=== PATIENT | male | born 1940 | race Caucasian/White ===

== ENCOUNTER 2020-06-07 21:38 | Inpatient (IN) | payer MEDICARE, OTHER, SELFPAY ==
--- NOTE | ~2020-06-07 | XR_ITS ---
EXAMINATION: XR chest 2V DATE: 06/09/2020 09:57 INDICATION: Leukocytosis TECHNIQUE: AP and lateral views of the chest are obtained. COMPARISON: None available FINDINGS: Patchy bilateral airspace opacities are present. There are small pleural effusions. No pneu mothorax is identified. The heart size is upper limits of normal for technique. There is calcified at herosclerosis. A dual-lead cardiac pacemaker of the left chest wall ends with leads in expected locat ions. Cranial migration of the humeral head with respect to the glenoid is consistent with chronic ro tator cuff tears. There is moderate thoracic spondylosis. IMPRESSION: 1. Patchy bilateral airspace opacities, consistent with atelectasis versus pneumonia. Reviewed, dictated and finalized at location [facility] IMPRESSION: 1. Patchy bilateral airspace opacities, consistent with atelectasis versus pneu monia.
[2020-06-07 21:39] VITALS: BP 95/36; PULSE 96; RESP 18; TEMP 36.3; O2SAT 98
[2020-06-07 22:16] LABS: Basophils Absolute Auto 0.1 K/mm3 (0.0-0.1); Basophils Percent Auto 0.7 % (0.2-1.2); Eosinophils Absolute Auto 0.7 K/mm3 (0-0.3); Eosinophils Percent Auto 9.1 % (0-4.4); Hematocrit 22.8 % (42.0-52.0); Hemoglobin 7.5 g/dL (14.0-18.0); Immature Granulocyte Absolute 0.03 K/mm3 (0.00-0.031); Immature Granulocyte Percent A 0.4 % (0-0.5); Lymphocytes Absolute Auto 1.31 K/mm3 (0.9-3.2); Lymphocytes Percent Auto 17.1 % (18.3-44.2); Mean Corpuscular HGB Conc 32.9 g/dl (32-36); Mean Corpuscular Hemoglobin 36.8 pg (26-34); Mean Corpuscular Volume 111.8 fl (80-100); Mean Platelet Volume 8.9 fl (7.4-10.4); Neutrophils Absolute Auto 4.6 K/mm3 (1.3-6.7); Neutrophils Percent Auto 59.7 % (45.5-73.1); Platelet Count Result 238 k/mm3 (150-375); Red Blood Count 2.04 M/mm3 (4.6-6.20); White Blood Count 7.7 K/mm3 (4.5-10.0)
[2020-06-07 22:26] LABS: Prothrombin Time 39.4 Seconds (11.1-14.7)
[2020-06-07 22:27] LABS: Partial Thromboplastin Time 45.6 SECONDS (22.3-36.8)
[2020-06-07 22:29] LABS: Alanine Aminotransferase 15 U/L (4-50); Albumin Level 3.5 g/dL (3.5-5.1); Alkaline Phosphatase 174 U/L (38-126); Anion Gap 9 mmol/L (8-16); Aspartate Amino Transferase 27 U/L (17-59); Bilirubin,Total 0.3 mg/dL (0.2-1.3); Blood Urea Nitrogen 47 mg/dL (9-20); Calcium 8.7 mg/dL (8.4-10.2); Carbon Dioxide 21 mmol/L (22-30); Chloride 110 mmol/L (98-107); Estimated CRCL calculation 22 ml/min; Estimated Glomerular Filt Rate 29; Glucose 106 mg/dL (75-110); Potassium 3.8 mmol/L (3.4-5.0); Sodium 140 mmol/L (137-145)
--- NOTE | 2020-06-07 23:59 | ED.GENADULT ---
HPI - General Adult General Chief complaint: Epistaxis Stated complaint: nose bleed, on blood thinners Time Seen by Provider: 06/07/20 21:45 History of Present Illness HPI narrative: Patient is a 79-year-old gentleman who presents the emergency department with chief complaint of epistaxis. Patient reports he is on Coumadin due to prior history of stroke and also cardiac disease. The patient states that tonight he started bleeding and attempted to control it with direct pressure. The patient states he continued to bleed he packed several pieces of Kleenex in his nose but continued to bleed and the patient came to the emergency department. The patient noted after he packed his left nostril he started having bleeding out of the right nostril. Related Data Allergies Allergy/AdvReac Type Severity Reaction Status Date / Time No Known Allergies Allergy Verified 06/07/20 21:42 Review of Systems Review of Systems: Narrative: A 10 system review of systems was completed on the patient and is negative except for what is stated in the HPI. Nursing and ancillary documentation was reviewed. PMFSH Comments Patient has history of cardiac bypass and pacemaker Social history the patient denies illicit drug use Exam Narrative: Exam Narrative: GENERAL: Well-appearing, well-nourished, and in no acute distress. HEAD: Normocephalic, atraumatic. EYES: PERRLA and EOMI. ENT: There is significant epistaxis and large clot in the left nostril. A large clot was expressed by having the patient blow his nose. Mucous membranes moist. NECK: Supple. CHEST: Clear to auscultation. No respiratory distress. HEART: Regular rate and rhythm. No murmur heard. Normal peripheral pulses. ABDOMEN: Soft, nontender, nondistended, normal active bowel sounds. EXTREMITIES: Normal range of motion. No edema. SKIN: Warm, dry, no rash. NEURO: No focal deficits. Alert and oriented x3. PSYCH: Normal mood and affect. Course Course Emergency Course: The patient is on Coumadin and a hemoglobin was obtained which showed a level of 7.5 patient denies history of significant anemia but does report that he has history of cardiac disease and also has a pacemaker. The patient's INR was 4.0 the case was discussed with Dr. Marie with ear nose and throat. He has not currently on active call but is available tonight if there is continual bleeding. He recommended continuing the rapid Rhino in place and holding the patient's Coumadin overnight. Vital Signs Vital signs: Vital Signs Temperature 36.3 C L 06/07/20 21:39 Pulse Rate 96 06/07/20 21:39 Respiratory Rate 18 06/07/20 21:39 Blood Pressure 95/36 L 06/07/20 21:39 Pulse Oximetry 98 06/07/20 21:39 Temperature 36.3 C L 06/07/20 21:39 Pulse Rate 96 06/07/20 21:39 Respiratory Rate 18 06/07/20 21:39 Blood Pressure 95/36 L 06/07/20 21:39 Pulse Oximetry 98 06/07/20 21:39 Procedures Epistaxis Control left: Time Out Performed: Yes Nose Prepped With: phenylephrine Direct Inspection: yes Clots Removed by: blowing nose Device Inserted: hemostatic balloon Device Size: 75 Patient Tolerated Procedure: well Medical Decision Making Vital Signs Vital Signs: Vital Signs Temperature 36.3 C L 06/07/20 21:39 Pulse Rate 96 06/07/20 21:39 Respiratory Rate 18 06/07/20 21:39 Blood Pressure 95/36 L 06/07/20 21:39 Pulse Oximetry 98 06/07/20 21:39 Temperature 36.3 C L 06/07/20 21:39 Pulse Rate 96 06/07/20 21:39 Respiratory Rate 18 06/07/20 21:39 Blood Pressure 95/36 L 06/07/20 21:39 Pulse Oximetry 98 06/07/20 21:39 Lab Data Result diagrams: 06/07/20 22:10 06/07/20 22:10 Labs: Lab Results 06/07/20 06/07/20 06/07/20 Range/Units 22:10 22:10 22:10 WBC 7.7 (4.5-10.0) K/mm3 RBC 2.04 L (4.6-6.20) M/mm3 Hgb 7.5 L (14.0-18.0) g/dL Hct 22.8 L (42.0-52.0) % MCV 111.8 H (80-
[2020-06-08] VITALS (11 sets, daily range): BP systolic 108–138; BP diastolic 48–58; PULSE 88–115; RESP 16–18; TEMP 36.4–38.1; O2SAT 96–100; BMI 24.3
--- NOTE | 2020-06-08 00:34 | PM.IMHP ---
H&P: HPI History of Present Illness Date/Time: 06/08/20 00:34 Chief Complaint: Nose bleed Narrative: This is a pleasant 79-year-old male with known history of coronary artery disease status post 3 stents and chronically anticoagulated on warfarin secondary to previous CVA. The patient presented to the [facility] with a complaint of epistaxis. Around 8:00 p.m. this evening he was blowing his nose when suddenly he started to have a significant nose bleed out of his left nostril. The patient ended up coming to the hospital as his bleeding would not stop. He reports that he did swallow a large amount of blood as well. He denies any significant trauma to his face or head. the patient is also known to be on aspirin therapy. He also denies any recent passing out, lightheadedness, shortness of breath, chest pain, nausea, vomiting, hematuria, dysuria, diarrhea, black tarry stools, or bright red rectal bleeding. Routine labs were obtained in the emergency room which demonstrated acute renal failure, elevated INR 4.0, and normocytic anemia. ER provider has consulted ENT and has placed a rhino rocket which has stopped the patient's epistaxis. We been asked to admit the patient to the hospital to keep a close eye on the patient's H&H and ENT has been consulted to manage any acute bleeding complications. No other complaints at this time. Review of Systems Review of Systems: All systems reviewed & are unremarkable except as noted in HPI and below PMFSH Past Medical History Medical History Cerebral arteriosclerosis with history of previous stroke Hyperlipidemia Hypertension Surgical History Surgical History History of coronary artery stent placement Family History Family History Mother Breast cancer Social History Social History Years smoked: 60 Smoking status: Current every day smoker Tobacco type: cigarettes Second hand tobacco smoke exposure: Yes Alcohol intake: current Drinks per week: 6 Substance use: never Substance use type: does not use Gender identity (if verbalized by the patient): Male Spiritual care concerns: No Comments family history is reviewed and noncontributory. Meds Home Medications and Allergies Home Medications Medication Instructions Recorded Confirmed Type aspirin [Adult Aspirin] 81 mg PO DAILY 06/08/20 06/08/20 History carvedilol [Coreg] 6.25 mg PO BID 06/08/20 06/08/20 History furosemide 40 mg PO DAILY 06/08/20 06/08/20 History lisinopril 10 mg PO HS 06/08/20 06/08/20 History simvastatin 40 mg PO HS 06/08/20 06/08/20 History warfarin 2.5 mg PO DIRECTED 06/08/20 06/08/20 History warfarin 5 mg PO DIRECTED 06/08/20 06/08/20 History Allergies Allergy/AdvReac Type Severity Reaction Status Date / Time No Known Allergies Allergy Verified 06/08/20 01:20 Vital Signs Vital Signs - 24 hr 06/07/20 21:39 Temperature 36.3 C L Pulse Rate 96 Respiratory Rate 18 Blood Pressure 95/36 L Pulse Oximetry 98 Exam Const: General: cooperative, no acute distress, alert and awake Nutritional Appearance: well nourished Orientation/consciousness: patient oriented x3 HENMT: Head: normal to inspection General nose exam: Other nasal findings present ( Left nostril with rhino rocket in place++ ) Face and sinus: normal facial exam Mouth: Yes Normal oral and palatal mucosa present and Yes oropharynx normal Eyes: Pupils: Equal, round and reactive pupils present EOM: EOMs intact bilaterally Neck: Neck: supple and no JVD Thyroid: thyroid normal Lymphatic: lymphadenopathy not noted Resp: Effort & Inspection: normal respiratory effort Auscultation: clear to auscultation bilaterally Cardio: Rate: regular rate Rhythm: regular rhythm Heart sounds: no mur
--- NOTE | 2020-06-08 01:00 | ADMGEN ---
This patient, Gerry Barba, was admitted to Medical Room 251-. Patient/family oriented to hospital policies and general routines including ID bracelet, bed and alarms, visiting hours, pain management, procedures, bathroom and other care routines, personal items, smoking policy, room service/diet, and visiting hours. Information on how to activate the Rapid Response Team has been discussed. Patient/Family are encouraged to report perceived risks to care and to ask questions if they do not understand what they are told or what they should do.
[2020-06-08] MEDS: SODIUM CHLORIDE 0.9% IV 1,000 ML 100 ML IV CONT ×2 (01:53→17:00)
[2020-06-08 02:20] LABS: Basophils Percent Auto 0.5 % (0.2-1.2); Eosinophils Absolute Auto 0.2 K/mm3 (0-0.3); Eosinophils Percent Auto 2.9 % (0-4.4); Hematocrit 22.1 % (42.0-52.0); Hemoglobin 7.1 g/dL (14.0-18.0); Immature Granulocyte Absolute 0.04 K/mm3 (0.00-0.031); Immature Granulocyte Percent A 0.5 % (0-0.5); Lymphocytes Absolute Auto 1.06 K/mm3 (0.9-3.2); Lymphocytes Percent Auto 14.1 % (18.3-44.2); Mean Corpuscular HGB Conc 32.1 g/dl (32-36); Mean Corpuscular Hemoglobin 36.6 pg (26-34); Mean Corpuscular Volume 113.9 fl (80-100); Mean Platelet Volume 9.3 fl (7.4-10.4); Monocytes Absolute Auto 0.8 K/mm3 (0.1-0.6); Monocytes Percent Auto 10.7 % (2.6-8.5); Neutrophils Absolute Auto 5.4 K/mm3 (1.3-6.7); Neutrophils Percent Auto 71.3 % (45.5-73.1); Platelet Count Result 250 k/mm3 (150-375); Red Blood Count 1.94 M/mm3 (4.6-6.20); White Blood Count 7.5 K/mm3 (4.5-10.0)
[2020-06-08 02:32] LABS: Anion Gap 7 mmol/L (8-16); Blood Urea Nitrogen 52 mg/dL (9-20); Calcium 8.2 mg/dL (8.4-10.2); Carbon Dioxide 21 mmol/L (22-30); Chloride 109 mmol/L (98-107); Estimated CRCL calculation 22 ml/min; Estimated Glomerular Filt Rate 29; Glucose 115 mg/dL (75-110); Potassium 4.2 mmol/L (3.4-5.0); Sodium 137 mmol/L (137-145)
[2020-06-08 02:35] LABS: Partial Thromboplastin Time 45.5 SECONDS (22.3-36.8); Prothrombin Time 39.4 Seconds (11.1-14.7)
[2020-06-08 03:44] LABS: Add Urine Microscopic? YES; Appearance Urine Clear (Clear); Bacteria Urine Trace /hpf; Bilirubin Urine Negative (Negative); Blood Urine 2+ (Negative); Color Urine Yellow (Yellow); Glucose Urine UA Negative (Negative); Ketones Urine Negative (Negative); Leukocyte Esterase Ur Trace LEU/UL (NEGATIVE); Mucus Urine Rare /lpf; Nitrate Urine Negative (Negative); Protein Urine 1+ mg/dL (Negative); RBC Urine 0-2 /hpf (0-2); Specific Grav Ur 1.014 (1.001-1.035); Squamous Epithelial Cell Urine Rare /hpf (Few); Urobilinogen Urine Negative mg/dL (<2.0)
[2020-06-08 07:55] LABS: Hematocrit 21.4 % (42.0-52.0)
[2020-06-08] MEDS: carvediloL 6.25 MG TABLET PO ×2 (07:58→17:04)
[2020-06-08 08:02] LABS: Hemoglobin 6.8 g/dL (14.0-18.0)
[2020-06-08 08:16] LABS: Anion Gap 9 mmol/L (8-16); Blood Urea Nitrogen 51 mg/dL (9-20); Calcium 8.2 mg/dL (8.4-10.2); Carbon Dioxide 19 mmol/L (22-30); Chloride 111 mmol/L (98-107); Estimated CRCL calculation 24 ml/min; Estimated Glomerular Filt Rate 30; Glucose 94 mg/dL (75-110); Magnesium 2.2 mg/dL (1.6-2.3); Potassium 4.1 mmol/L (3.4-5.0); Sodium 139 mmol/L (137-145)
[2020-06-08] MEDS: SODIUM CHLORIDE 0.9% IV 250 ML 30 ML IV CONT (10:21)
[2020-06-08 11:35] LABS: INR 3.9; Prothrombin Time 38.3 Seconds (11.1-14.7)
--- NOTE | 2020-06-08 13:31 | P.PNIM_ITS ---
Progress Note: A&P Assessment and Plan (1) Epistaxis: Code(s): R04.0 - Epistaxis Status: Acute Assessment and Plan: * Rhino Rocket intact and should be continued for at least 24 hrs from placement (placed in the ED after 10pm 06/07/20). Can be continued up to 72 hrs. * Hold warfarin and aspirin. INR 3.9 this morning. No ENT coverage this weekend. Will plan to remove Rhino Rocket either tomorrow vs. keeping till Wednesday and consulting ENT depending on H&H and INR tomorrow. (2) Anemia: Qualifiers: Anemia type: unspecified type Qualified Code(s): D64.9 - Anemia, unspecified Code(s): D64.9 - Anemia, unspecified Status: Acute Assessment and Plan: * Secondary to epistaxis. Hgb 6.8 this morning, transfuse 1 unit packed RBC. Recheck H&H this afternoon after blood and again in AM. * Hold warfarin therapy. (3) Chronic anticoagulation: Code(s): Z79.01 - alf (current) use of anticoagulants Status: Chronic Assessment and Plan: * Patient on long-term anticoagulation with warfarin since around 2008 s/p old CVA as well as defibrillator placement. * Continue to monitor PT/INR daily with goal 2.0-3.0; continue to hold warfarin. * Warfarin managed by Dr Vic Mortensen at [place]. Patient reports last INR drawn 05/27 was normal. (4) Coronary artery disease: Qualifiers: Associated angina: without angina Coronary Disease-Associated Artery/Lesion type: unspecified vessel or lesion type [place] vs. transplanted heart: [place] heart Qualified Code(s): I25.10 - Atherosclerotic heart disease of [place] coronary artery without angina pectoris Code(s): I25.10 - Atherosclerotic heart disease of [place] coronary artery without angina pectoris Status: Chronic Assessment and Plan: * Stable, no chest pain. Certified Orthotic Fitter is Dr Ramy Gross at [place]. (5) Hyperlipidemia: Qualifiers: Hyperlipidemia type: unspecified Qualified Code(s): E78.5 - Hype rlipidemia, unspecified Code(s): E78.5 - Hyperlipidemia, unspecified Status: Chronic Assessment and Plan: * Maintained on statin therapy. (6) Hypertension: Qualifiers: Hypertension type: unspecified Qualified Code(s): I10 - Essential (primary) hypertension Code(s): I10 - Essential (primary) hypertension Status: Chronic Assessment and Plan: * BPs reviewed and stable on lower end. Maintained on his home lisinopril. Monitor BP and adjust treatment as needed. (7) Renal failure: Qualifiers: Renal failure chronicity: unspecified chronicity Qualified Code(s): N19 - Unspecified kidney failure Code(s): N19 - Unspecified kidney failure Status: Acute Assessment and Plan: * Acute vs. chronic? Patient notes he has never been told he had kidney issues in the past. * Cr 2.1, BUN elevated. Continue IV hydration for now. Hold lasix. Monitor renal function daily. Consider renal ultrasound if no improvement. (8) Tobacco dependence: Code(s): F17.200 - Nicotine dependence, unspecified, uncomplicated Status: Chronic Assessment and Plan: * Smoking cessation encouraged. Subjective Date/time seen: 06/08/20 [facility] In
--- NOTE | 2020-06-08 13:31 | PM.IMPN ---
Progress Note: A&P Assessment and Plan (1) Epistaxis: Code(s): R04.0 - Epistaxis Status: Acute Assessment and Plan: Rhino Rocket intact and should be continued for at least 24 hrs from placement (placed in the ED after 10pm 06/07/20). Can be continued up to 72 hrs. Hold warfarin and aspirin. INR 3.9 this morning. No ENT coverage this weekend. Will plan to remove Rhino Rocket either tomorrow vs. keeping till Wednesday and consulting ENT depending on H&H and INR tomorrow. (2) Anemia: Qualifiers: Anemia type: unspecified type Qualified Code(s): D64.9 - Anemia, unspecified Code(s): D64.9 - Anemia, unspecified Status: Acute Assessment and Plan: Secondary to epistaxis. Hgb 6.8 this morning, transfuse 1 unit packed RBC. Recheck H&H this afternoon after blood and again in AM. Hold warfarin therapy. (3) Chronic anticoagulation: Code(s): Z79.01 - longterm (current) use of anticoagulants Status: Chronic Assessment and Plan: Patient on long-term anticoagulation with warfarin since around 2008 s/p old CVA as well as defibrillator placement. Continue to monitor PT/INR daily with goal 2.0-3.0; continue to hold warfarin. Warfarin managed by Dr Vic Mortensen at [place]. Patient reports last INR drawn 05/27 was normal. (4) Coronary artery disease: Qualifiers: Associated angina: without angina Coronary Disease-Associated Artery/Lesion type: unspecified vessel or lesion type [place] vs. transplanted heart: [place] heart Qualified Code(s): I25.10 - Atherosclerotic heart disease of [place] coronary artery without angina pectoris Code(s): I25.10 - Atherosclerotic heart disease of [place] coronary artery without angina pectoris Status: Chronic Assessment and Plan: Stable, no chest pain. Dish Room Worker is Dr Ramy Gross at [place]. (5) Hyperlipidemia: Qualifiers: Hyperlipidemia type: unspecified Qualified Code(s): E78.5 - Hyperlipidemia, unspecified Code(s): E78.5 - Hyperlipidemia, unspecified Status: Chronic Assessment and Plan: Maintained on statin therapy. (6) Hypertension: Qualifiers: Hypertension type: unspecified Qualified Code(s): I10 - Essential (primary) hypertension Code(s): I10 - Essential (primary) hypertension Status: Chronic Assessment and Plan: BPs reviewed and stable on lower end. Maintained on his home lisinopril. Monitor BP and adjust treatment as needed. (7) Renal failure: Qualifiers: Renal failure chronicity: unspecified chronicity Qualified Code(s): N19 - Unspecified kidney failure Code(s): N19 - Unspecified kidney failure Status: Acute Assessment and Plan: Acute vs. chronic? Patient notes he has never been told he had kidney issues in the past. Cr 2.1, BUN elevated. Continue IV hydration for now. Hold lasix. Monitor renal function daily. Consider renal ultrasound if no improvement. (8) Tobacco dependence: Code(s): F17.200 - Nicotine dependence, unspecified, uncomplicated Status: Chronic Assessment and Plan: Smoking cessation encouraged. Subjective Date/time seen: 06/08/20 1000 Interval history: Mr. Jensen is an 79yo M on long-term anticoagulation with Warfarin admitted for supratherapeutic INR and significant nosebleed. Rhino rocket intact. He feels weak and tired but otherwise offers no complaints. Denies chest pain, shortness of breath, or dizziness. Denies nausea or vomiting. Review of Systems Review of Systems: All systems reviewed & are unremarkable except a
[2020-06-08 16:05] LABS: Hematocrit 27.9 % (42.0-52.0); Hemoglobin 9.3 g/dL (14.0-18.0)
[2020-06-08] MEDS: lisinopriL 10 MG TABLET PO (20:56)
[2020-06-08] MEDS: SIMVASTATIN 20 MG TABLET 40 MG PO (20:56)
[2020-06-09] VITALS (9 sets, daily range): BP systolic 111–128; BP diastolic 48–58; PULSE 86–98; RESP 18–20; TEMP 36.3–38.1; O2SAT 93–98
[2020-06-09] MEDS: SODIUM CHLORIDE 0.9% IV 1,000 ML 100 ML IV CONT ×2 (01:38→12:29)
[2020-06-09 06:04] LABS: Basophils Percent Auto 0.3 % (0.2-1.2); Eosinophils Absolute Auto 0.1 K/mm3 (0-0.3); Eosinophils Percent Auto 0.7 % (0-4.4); Hematocrit 28.2 % (42.0-52.0); Hemoglobin 9.1 g/dL (14.0-18.0); Immature Granulocyte Absolute 0.05 K/mm3 (0.00-0.031); Immature Granulocyte Percent A 0.5 % (0-0.5); Lymphocytes Absolute Auto 1.03 K/mm3 (0.9-3.2); Lymphocytes Percent Auto 9.6 % (18.3-44.2); Mean Corpuscular HGB Conc 32.3 g/dl (32-36); Mean Corpuscular Hemoglobin 34.5 pg (26-34); Mean Corpuscular Volume 106.8 fl (80-100); Mean Platelet Volume 9.7 fl (7.4-10.4); Monocytes Absolute Auto 1.6 K/mm3 (0.1-0.6); Monocytes Percent Auto 14.5 % (2.6-8.5); Neutrophils Percent Auto 74.4 % (45.5-73.1); Platelet Count Result 192 k/mm3 (150-375); Red Blood Count 2.64 M/mm3 (4.6-6.20); Red Cell Distribution Width 16.9 % (11.5-14.5); White Blood Count 10.7 K/mm3 (4.5-10.0)
[2020-06-09 06:10] LABS: INR 2.7
[2020-06-09 06:16] LABS: Anion Gap 5 mmol/L (8-16); Blood Urea Nitrogen 40 mg/dL (9-20); Calcium 8.4 mg/dL (8.4-10.2); Carbon Dioxide 19 mmol/L (22-30); Chloride 115 mmol/L (98-107); Estimated CRCL calculation 26 ml/min; Estimated Glomerular Filt Rate 34; Glucose 98 mg/dL (75-110); Magnesium 2.2 mg/dL (1.6-2.3); Potassium 4.1 mmol/L (3.4-5.0); Sodium 139 mmol/L (137-145)
[2020-06-09 06:17] LABS: Alanine Aminotransferase 13 U/L (4-50); Alkaline Phosphatase 90 U/L (38-126); Aspartate Amino Transferase 24 U/L (17-59); Bilirubin,Total 0.8 mg/dL (0.2-1.3)
[2020-06-09] MEDS: carvediloL 6.25 MG TABLET PO ×2 (08:38→16:04)
--- NOTE | 2020-06-09 09:51 | PC.NURSE ---
pt. left floor on stretcher for radiology
--- NOTE | 2020-06-09 10:02 | P.PNIM_ITS ---
Progress Note: A&P Assessment and Plan (1) Epistaxis: Code(s): R04.0 - Epistaxis Status: Acute Assessment and Plan: * Patient on long-term anticoagulation with warfarin for h/o CVA and defibrillator placement presents with significant epistaxis. Rhino Rocket intact (placed in the ED after 10pm 06/07/20). Can be continued up to 72 hrs. * Plan to leave Rhino Rocket in through this evening and consult ENT in AM - appreciate input. (2) Anemia: Qualifiers: Anemia type: unspecified type Qualified Code(s): D64.9 - Anemia, unspecified Code(s): D64.9 - Anemia, unspecified Status: Acute Assessment and Plan: * Suspected secondary to epistaxis although baseline hemoglobin is unknown, no previous labs for comparison. * Hgb 6.8 06/08/20 and received 2 units packed RBC; Hgb improved and stable today at 9.1. (3) Chronic anticoagulation: Code(s): Z79.01 - exterminator helper (current) use of anticoagulants Status: Chronic Assessment and Plan: * Patient on long-term anticoagulation with warfarin since around 2008 s/p old CVA as well as defibrillator placement. * Continue to monitor PT/INR daily with goal 2.0-3.0. INR was 4.0 on arrival and warfarin was held. INR 2.7 this morning, warfarin will be resumed tonight at a lower dose. * Warfarin managed by Dr Vic Mortensen at [place]. Patient reports last INR drawn 05/27 was normal. (4) Coronary artery disease: Qualifiers: Coronary Disease-Associated Artery/Lesion type: unspecified vessel or lesion type [place] vs. transplanted heart: [place] heart Associated angina: without angina Qualified Code(s): I25.10 - Atherosclerotic heart disease of [place] coronary artery without angina pectoris Code(s): I25.10 - Atherosclerotic heart disease of [place] coronary artery without angina pectoris Status: Chronic Assessment and Plan: * Stable, no chest pain. Stretcher Leveler Operator Helper is Dr Ramy Gross at [place]. (5) Hyperlipidemia: Qualifiers: Hyperlipidemia type: unspecified Qualified Code(s): E78.5 - Hyperlipidemia, unspecified Code(s): E78.5 - Hyperlipidemia, unspecified Status: Chronic Assessment and Plan: * Maintained on statin therapy. (6) Hypertension: Qualifiers: Hypertension type: unspecified Qualified Code(s): I10 - Essential (primary) hypertension Code(s): I10 - Essential (primary) hypertension Status: Chronic Assessment and Plan: * BPs reviewed and stable on lower end. Maintained on his home coreg; hold home lisinopril this evening. Monitor BP and adjust treatment as needed. (7) Renal failure: Qualifiers: Renal failure chronicity: unspecified chronicity Qualified Code(s): N19 - Unspecified kidney failure Code(s): N19 - Unspecified kidney failure Status: Acute Assessment and Plan: * Acute vs. chronic? Patient notes he has never been told he had kidney issues in the past. * Slowly improving with IV hydration. Hold lasix. Monitor renal function daily. Consider renal ultrasound if no improvement. (8) Tobacco dependence: Code(s): F17.200 - Nicotine dependence, unspecified, uncomplicated Status: Chronic Assessment and Plan: * Smoking cessation encouraged.
--- NOTE | 2020-06-09 10:02 | PM.IMPN ---
Progress Note: A&P Assessment and Plan (1) Epistaxis: Code(s): R04.0 - Epistaxis Status: Acute Assessment and Plan: Patient on long-term anticoagulation with warfarin for h/o CVA and defibrillator placement presents with significant epistaxis. Rhino Rocket intact (placed in the ED after 10pm 06/07/20). Can be continued up to 72 hrs. Plan to leave Rhino Rocket in through this evening and consult ENT in AM - appreciate input. (2) Anemia: Qualifiers: Anemia type: unspecified type Qualified Code(s): D64.9 - Anemia, unspecified Code(s): D64.9 - Anemia, unspecified Status: Acute Assessment and Plan: Suspected secondary to epistaxis although baseline hemoglobin is unknown, no previous labs for comparison. Hgb 6.8 06/08/20 and received 2 units packed RBC; Hgb improved and stable today at 9.1. (3) Chronic anticoagulation: Code(s): Z79.01 - emt intermediate (current) use of anticoagulants Status: Chronic Assessment and Plan: Patient on long-term anticoagulation with warfarin since around 2008 s/p old CVA as well as defibrillator placement. Continue to monitor PT/INR daily with goal 2.0-3.0. INR was 4.0 on arrival and warfarin was held. INR 2.7 this morning, warfarin will be resumed tonight at a lower dose. Warfarin managed by Dr Vic Mortensen at [place]. Patient reports last INR drawn 05/27 was normal. (4) Coronary artery disease: Qualifiers: Coronary Disease-Associated Artery/Lesion type: unspecified vessel or lesion type [place] vs. transplanted heart: [place] heart Associated angina: without angina Qualified Code(s): I25.10 - Atherosclerotic heart disease of [place] coronary artery without angina pectoris Code(s): I25.10 - Atherosclerotic heart disease of [place] coronary artery without angina pectoris Status: Chronic Assessment and Plan: Stable, no chest pain. Bookbinding Machine Operator is Dr Ramy Gross at [place]. (5) Hyperlipidemia: Qualifiers: Hyperlipidemia type: unspecified Qualified Code(s): E78.5 - Hyperlipidemia, unspecified Code(s): E78.5 - Hyperlipidemia, unspecified Status: Chronic Assessment and Plan: Maintained on statin therapy. (6) Hypertension: Qualifiers: Hypertension type: unspecified Qualified Code(s): I10 - Essential (primary) hypertension Code(s): I10 - Essential (primary) hypertension Status: Chronic Assessment and Plan: BPs reviewed and stable on lower end. Maintained on his home coreg; hold home lisinopril this evening. Monitor BP and adjust treatment as needed. (7) Renal failure: Qualifiers: Renal failure chronicity: unspecified chronicity Qualified Code(s): N19 - Unspecified kidney failure Code(s): N19 - Unspecified kidney failure Status: Acute Assessment and Plan: Acute vs. chronic? Patient notes he has never been told he had kidney issues in the past. Slowly improving with IV hydration. Hold lasix. Monitor renal function daily. Consider renal ultrasound if no improvement. (8) Tobacco dependence: Code(s): F17.200 - Nicotine dependence, unspecified, uncomplicated Status: Chronic Assessment and Plan: Smoking cessation encouraged. Subjective Date/time seen: 06/09/20 10:05 Interval history: Mr. Jensen is an 79yo M on long-term anticoagulation with Warfarin admitted for epistaxis. Rhino rocket intact. He feels weak and tired but otherwise offers no complaints. He denies chest pain, shortness of breath, or dizziness. Denies nausea or vomiting. Not eating much today.
[2020-06-09] MEDS: WARFARIN (*PBKC) 3 MG TABLET PO (16:06)
[2020-06-09] MEDS: SIMVASTATIN 20 MG TABLET 40 MG PO (21:30)
[2020-06-09] MEDS: ACETAMINOPHEN 325 MG TABLET 650 MG PO (22:03)
[2020-06-10] VITALS (7 sets, daily range): BP systolic 113–131; BP diastolic 54–73; PULSE 80–100; RESP 18–22; TEMP 36.8–37.4; O2SAT 94–96
[2020-06-10] MEDS: SODIUM CHLORIDE 0.9% IV 1,000 ML 100 ML IV CONT (01:01)
[2020-06-10 05:52] LABS: Basophils Absolute Auto 0.1 K/mm3 (0.0-0.1); Basophils Percent Auto 0.4 % (0.2-1.2); Eosinophils Absolute Auto 0.1 K/mm3 (0-0.3); Eosinophils Percent Auto 0.7 % (0-4.4); Hematocrit 26.3 % (42.0-52.0); Hemoglobin 8.3 g/dL (14.0-18.0); Immature Granulocyte Absolute 0.09 K/mm3 (0.00-0.031); Immature Granulocyte Percent A 0.7 % (0-0.5); Lymphocytes Absolute Auto 1.18 K/mm3 (0.9-3.2); Lymphocytes Percent Auto 9.6 % (18.3-44.2); Mean Corpuscular HGB Conc 31.6 g/dl (32-36); Mean Corpuscular Hemoglobin 33.7 pg (26-34); Mean Corpuscular Volume 106.9 fl (80-100); Monocytes Absolute Auto 1.7 K/mm3 (0.1-0.6); Monocytes Percent Auto 13.8 % (2.6-8.5); Neutrophils Absolute Auto 9.2 K/mm3 (1.3-6.7); Neutrophils Percent Auto 74.8 % (45.5-73.1); Platelet Count Result 165 k/mm3 (150-375); Red Blood Count 2.46 M/mm3 (4.6-6.20); Red Cell Distribution Width 16.1 % (11.5-14.5); White Blood Count 12.3 K/mm3 (4.5-10.0)
[2020-06-10 05:58] LABS: INR 2.4; Prothrombin Time 26.8 Seconds (11.1-14.7)
[2020-06-10 06:17] LABS: Alanine Aminotransferase 14 U/L (4-50); Albumin Level 3.1 g/dL (3.5-5.1); Alkaline Phosphatase 70 U/L (38-126); Anion Gap 6 mmol/L (8-16); Aspartate Amino Transferase 27 U/L (17-59); Bilirubin,Total 1.3 mg/dL (0.2-1.3); Blood Urea Nitrogen 41 mg/dL (9-20); Calcium 8.3 mg/dL (8.4-10.2); Carbon Dioxide 19 mmol/L (22-30); Chloride 115 mmol/L (98-107); Estimated CRCL calculation 27 ml/min; Estimated Glomerular Filt Rate 36; Glucose 101 mg/dL (75-110); Potassium 4.4 mmol/L (3.4-5.0); Sodium 140 mmol/L (137-145)
[2020-06-10] MEDS: carvediloL 6.25 MG TABLET PO ×2 (08:09→18:07)
[2020-06-10] MEDS: SODIUM CHLORIDE 0.9% IV 1,000 ML 70 ML IV CONT ×2 (08:10→20:39)
--- NOTE | 2020-06-10 09:32 | PCOTNOTE ---
Attempted OT evaluation, pt is currently being moved rooms to [address] [place] [id number] surg, will attempt at later time.
--- NOTE | 2020-06-10 10:56 | WPDCN ---
Assessment and Plan Assessment and plan (1) Epistaxis: Code(s): R04.0 - Epistaxis Status: Acute Assessment and Plan: The patient can follow up with me following discharge in clinic. Please have him call [phone] for an appointment. I recommend holding anticoagulation but this decision is left up to the physicians directing his care/ PCP/cardiology. I would also recommend having the patient use flow nasal saline several times per day around the rhino rocket. HPI Data of Consult Date/Time: 06/10/20 10:56 Requesting Physician: Octavio Cam MD Primary Care Provider: Vic Mortensen, Consult Narrative Narrative: Gerry Barba is a 79 year old male With a past medical history of epistaxis. Left-sided. Patient was supratherapeutic on his warfarin with an INR in between 3 and 4. Current INR is 2.4 and warfarin has been restarted. currently not bleeding. Left-sided rhino rocket inflated. Review of Systems Constitutional: Constitutional: Denies fatigue, Denies fever(s) and Denies lethargy Eyes: Eyes: Denies blurry vision and Denies change in vision ENT: Reports as per HPI Cardiovascular: Cardiovascular: Denies chest pain Respiratory: Respiratory: Denies cough Endocrine: Endocrine: Denies fatigue Hematologic/Lymphatic: Hematologic/Lymphatic: Denies lymphadenopathy Allergic/Immunologic: Allergic/Immunologic: Denies seasonal rhinorrhea [facility] Past Medical History Medical History Cerebral arteriosclerosis with history of previous stroke Hyperlipidemia Hypertension Surgical History Surgical History History of coronary artery stent placement Family History Family History Mother Breast cancer Social History Social History Years smoked: 60 Smoking status: Current every day smoker Tobacco type: cigarettes Second hand tobacco smoke exposure: Yes Alcohol intake: current Drinks per week: 6 Substance use: never Substance use type: does not use Gender identity (if verbalized by the patient): Male Spiritual care concerns: No Meds Home Medications and Allergies Home Medications Medication Instructions Recorded Confirmed Type aspirin [Adult Aspirin] 81 mg PO DAILY 06/08/20 06/08/20 History carvedilol [Coreg] 6.25 mg PO BID 06/08/20 06/08/20 History furosemide 40 mg PO DAILY 06/08/20 06/08/20 History lisinopril 10 mg PO HS 06/08/20 06/08/20 History simvastatin 40 mg PO HS 06/08/20 06/08/20 History warfarin 2.5 mg PO DIRECTED 06/08/20 06/08/20 History warfarin 5 mg PO DIRECTED 06/08/20 06/08/20 History Allergies Allergy/AdvReac Type Severity Reaction Status Date / Time No Known Allergies Allergy Verified 06/08/20 01:20 Vital Signs Vital Signs - 24 hr 06/09/20 14:00 06/09/20 15:54 06/09/20 16:04 Temperature 37.6 C 36.3 C L Pulse Rate 89 98 Respiratory Rate 20 Blood Pressure 111/48 L Pulse Oximetry 94 06/09/20 21:43 06/09/20 22:03 06/09/20 23:00 Temperature 38.1 C H 38.1 C H 37.7 C H Pulse Rate 90 Respiratory Rate 20 Blood Pressure 128/58 L Pulse Oximetry 93 06/09/20 23:03 06/10/20 06:00 06/10/20 08:09 Temperature 37.7 C H 37.3 C Pulse Rate 82 88 Respiratory Rate 18 Blood Pressure 131/63 Pulse Oximetry 94 06/10/20 10:40 Temperature 36.8 C Pulse Rate 80 Respiratory Rate 20 Blood Pressure 122/65 Pulse Oximetry 94 Exam Const: General: cooperative, healthy appearing, comfortable, well developed and alert HENMT: Head: normal to inspection, normocephalic and atraumatic Ears: hearing grossly normal bilaterally, external ears normal, TM's normal bilaterally and EAC's normal General nose exam: Normal external nose present, Normal nares present, No nasal polyps present and
--- NOTE | 2020-06-10 12:33 | P.CDI_ITS ---
CDI Query Clarification Request -Anemia, Suspected secondary to epistaxis although baseline hemoglobin is unknown has been documented. Please further clarify acuity of anemia: * Acute * Chronic * ACute on chronic * Unable to determine
--- NOTE | 2020-06-10 12:33 | WPDCDIQUERY2 ---
CDI Query Clarification Request -Anemia, Suspected secondary to epistaxis although baseline hemoglobin is unknown has been documented. Please further clarify acuity of anemia: Acute Chronic ACute on chronic Unable to determine
--- NOTE | 2020-06-10 13:15 | P.PNIM_ITS ---
Progress Note: A&P Assessment and Plan (1) Epistaxis: Code(s): R04.0 - Epistaxis Status: Acute Assessment and Plan: * Patient on long-term anticoagulation with warfarin for h/o CVA and defibrillator placement presents with significant epistaxis. Rhino Rocket intact (placed in the ED after 10pm 06/07/20). * Patient evaluated by ENT this morning and recommendations are appreciated. Discussed case with Dr Irizarry who recommends continuing Rhino rocket for now and he will remove it in the office the day following his hospital discharge. We discussed his recommendation to continue holding warfarin if possible, but that the decision was made yesterday to resume warfarin to keep INR within goal range of 2.0-3.0. * If patient is discharged tomorrow, patient is to call Dr Irizarry's office the following morning first thing in AM to schedule an appointment same-day to see Dr Irizarry. This has been discussed also with son, Gonzalo. (2) Anemia: Qualifiers: Anemia type: unspecified type Qualified Code(s): D64.9 - Anemia, unspecified Code(s): D64.9 - Anemia, unspecified Status: Acute Assessment and Plan: * Suspected secondary to epistaxis although baseline hemoglobin is unknown, no previous labs for comparison. Unable to determine chronicity. * Hgb 6.8 06/08/20 and received 2 units packed RBC; Hgb remains low but stable today 8.3. (3) Chronic anticoagulation: Code(s): Z79.01 - manager intermediate (current) use of anticoagulants Status: Chronic Assessment and Plan: * Patient on long-term anticoagulation with warfarin since around 2008 s/p old CVA as well as defibrillator placement. * Continue to monitor PT/INR daily with goal 2.0-3.0. * INR was 4.0 on arrival - warfarin was held. * INR 3.9 on 06/08 - warfarin held. * INR 2.7 on 06/09 - warfarin resumed at lower dose - 3mg daily. * INR 2.4 today 06/10 - warfarin 3mg continued. * Warfarin managed by Dr Vic Mortensen at [place]. Patient reports last INR drawn 05/27 was normal. (4) Abnormal chest xray: Code(s): R93.89 - Abnormal findings on diagnostic imaging of other specified body structures Status: Acute Assessment and Plan: * Leukocytosis and fever with shortness of breath prompted chest XR which demonstrates JUAN patchy opacities. This could represent atelectasis from patient not taking deep enough breaths with nasal device in, however given the leukocytosis and fever and patient report swallowed a lot of blood day of arrival, my concern is for possible aspiration. COVID negative. Not hypoxic. * Mild leukocytosis trending up, febrile again. Obtain blood cultures and start IV zosyn after cultures are drawn. Deescalate abx if appropriate pending clinical course. (5) Coronary artery disease: Qualifiers: Coronary Disease-Associated Artery/Lesion type: unspecified vessel or lesion type [place] vs. transplanted heart: [place] heart Associated angina: without angina Qualified Code(s): I25.10 - Atherosclerotic heart disease of [place] coronary artery without angina pectoris Code(s): I25.10 - Atherosclerotic heart disease of [place] coronary artery without angina pectoris Status: Chronic Assessment and Plan: * Stable, no chest pain. Area Attendant is Dr Ramy Gross at [place]. (6) Hyperlipidemia: Qualifiers: Hyperlipidemia type: unspecified Qualified Code(s): E78.5 -
--- NOTE | 2020-06-10 13:15 | PM.IMPN ---
Progress Note: A&P Assessment and Plan (1) Epistaxis: Code(s): R04.0 - Epistaxis Status: Acute Assessment and Plan: Patient on long-term anticoagulation with warfarin for h/o CVA and defibrillator placement presents with significant epistaxis. Rhino Rocket intact (placed in the ED after 10pm 06/07/20). Patient evaluated by ENT this morning and recommendations are appreciated. Discussed case with Dr Irizarry who recommends continuing Rhino rocket for now and he will remove it in the office the day following his hospital discharge. We discussed his recommendation to continue holding warfarin if possible, but that the decision was made yesterday to resume warfarin to keep INR within goal range of 2.0-3.0. If patient is discharged tomorrow, patient is to call Dr Irizarry's office the following morning first thing in AM to schedule an appointment same-day to see Dr Irizarry. This has been discussed also with son, Gonzalo. (2) Anemia: Qualifiers: Anemia type: unspecified type Qualified Code(s): D64.9 - Anemia, unspecified Code(s): D64.9 - Anemia, unspecified Status: Acute Assessment and Plan: Suspected secondary to epistaxis although baseline hemoglobin is unknown, no previous labs for comparison. Unable to determine chronicity. Hgb 6.8 06/08/20 and received 2 units packed RBC; Hgb remains low but stable today 8.3. (3) Chronic anticoagulation: Code(s): Z79.01 - terminal block assembler (current) use of anticoagulants Status: Chronic Assessment and Plan: Patient on long-term anticoagulation with warfarin since around 2008 s/p old CVA as well as defibrillator placement. Continue to monitor PT/INR daily with goal 2.0-3.0. INR was 4.0 on arrival - warfarin was held. INR 3.9 on 06/08 - warfarin held. INR 2.7 on 06/09 - warfarin resumed at lower dose - 3mg daily. INR 2.4 today 06/10 - warfarin 3mg continued. Warfarin managed by Dr Vic Mortensen at [place]. Patient reports last INR drawn 05/27 was normal. (4) Abnormal chest xray: Code(s): R93.89 - Abnormal findings on diagnostic imaging of other specified body structures Status: Acute Assessment and Plan: Leukocytosis and fever with shortness of breath prompted chest XR which demonstrates JUAN patchy opacities. This could represent atelectasis from patient not taking deep enough breaths with nasal device in, however given the leukocytosis and fever and patient report swallowed a lot of blood day of arrival, my concern is for possible aspiration. COVID negative. Not hypoxic. Mild leukocytosis trending up, febrile again. Obtain blood cultures and start IV zosyn after cultures are drawn. Deescalate abx if appropriate pending clinical course. (5) Coronary artery disease: Qualifiers: Coronary Disease-Associated Artery/Lesion type: unspecified vessel or lesion type [place] vs. transplanted heart: [place] heart Associated angina: without angina Qualified Code(s): I25.10 - Atherosclerotic heart disease of [place] coronary artery without angina pectoris Code(s): I25.10 - Atherosclerotic heart disease of [place] coronary artery without angina pectoris Status: Chronic Assessment and Plan: Stable, no chest pain. Liquid Sugar Fortifier is Dr Ramy Gross at [place]. (6) Hyperlipidemia: Qualifiers: Hyperlipidemia type: unspecified Qualified Code(s): E78.5 - Hyperlipidemia, unspecified Code(s): E78.5 - Hyperlipidemia, unspecified Status: Chronic Assessment and Plan: Maintained on statin therapy. (7) Hypertension: Qualifiers: Hypertension type: unspecified Qualified Code(s): I10 - Essential (primary) hypertension Code(s):
[2020-06-10] MEDS: WARFARIN (*PBKC) 3 MG TABLET PO (18:07)
[2020-06-10 18:50] LABS: SARS-CoV-2 RNA PCR Negative
[2020-06-10] MEDS: SIMVASTATIN 20 MG TABLET 40 MG PO (20:37)
[2020-06-11 06:00] VITALS: BP 127/60; PULSE 97; RESP 22; TEMP 36.6; O2SAT 99
[2020-06-11 06:44] LABS: Basophils Percent Auto 0.3 % (0.2-1.2); Eosinophils Absolute Auto 0.1 K/mm3 (0-0.3); Eosinophils Percent Auto 0.9 % (0-4.4); Hematocrit 25.8 % (42.0-52.0); Hemoglobin 8.2 g/dL (14.0-18.0); Immature Granulocyte Absolute 0.09 K/mm3 (0.00-0.031); Immature Granulocyte Percent A 0.7 % (0-0.5); Lymphocytes Percent Auto 5.9 % (18.3-44.2); Mean Corpuscular HGB Conc 31.8 g/dl (32-36); Mean Corpuscular Hemoglobin 34.3 pg (26-34); Mean Corpuscular Volume 107.9 fl (80-100); Mean Platelet Volume 10.1 fl (7.4-10.4); Monocytes Absolute Auto 1.6 K/mm3 (0.1-0.6); Monocytes Percent Auto 11.5 % (2.6-8.5); Neutrophils Absolute Auto 10.9 K/mm3 (1.3-6.7); Neutrophils Percent Auto 80.7 % (45.5-73.1); Platelet Count Result 158 k/mm3 (150-375); Red Blood Count 2.39 M/mm3 (4.6-6.20); Red Cell Distribution Width 15.8 % (11.5-14.5); White Blood Count 13.5 K/mm3 (4.5-10.0)
[2020-06-11 07:01] LABS: Alanine Aminotransferase 15 U/L (4-50); Alkaline Phosphatase 71 U/L (38-126); Anion Gap 6 mmol/L (8-16); Aspartate Amino Transferase 31 U/L (17-59); Bilirubin,Total 1.4 mg/dL (0.2-1.3); Blood Urea Nitrogen 42 mg/dL (9-20); Calcium 8.2 mg/dL (8.4-10.2); Carbon Dioxide 18 mmol/L (22-30); Chloride 117 mmol/L (98-107); Estimated CRCL calculation 25 ml/min; Estimated Glomerular Filt Rate 32; Glucose 99 mg/dL (75-110); Potassium 4.5 mmol/L (3.4-5.0); Sodium 141 mmol/L (137-145)
[2020-06-11 07:03] LABS: Prothrombin Time 31.7 Seconds (11.1-14.7)
[2020-06-11 08:17] VITALS: PULSE 104
[2020-06-11] MEDS: carvediloL 6.25 MG TABLET PO ×2 (08:17→18:01)
--- NOTE | 2020-06-11 12:54 | PM.IMPN ---
Progress Note: A&P Assessment and Plan (1) Epistaxis: Code(s): R04.0 - Epistaxis Status: Acute Assessment and Plan: Patient on long-term anticoagulation with warfarin for h/o CVA and defibrillator placement presents with significant epistaxis. - Rhino Rocket intact (placed in the ED after 10pm 06/07/20). - Discussed case with Dr Irizarry who is going to come and evaluate the patient today and adjust the rhino rocket -he may take the rhino rocket out Wednesday or depending on how the patient does -unsure of the packing's correlation with his infections/increasing white count. Discussed this with Dr. Irizarry who agrees hopefully we can get it down the next day or 2 (2) Pneumonia: Code(s): J18.9 - Pneumonia, unspecified organism Status: Acute Assessment and Plan: Leukocytosis and fever with shortness of breath prompted chest XR which demonstrates JUAN patchy opacities starting 06/08/19. -Zosyn started 06/10/19 with no fever since -white blood cell count, however, is still trending up -likely due to pneumonia, but cannot rule out packing component from nasal area as source of infection -ENT will be here later today to evaluate, likely take out the rhino rocket in 1-2 days -patient is improving without vancomycin, MRSA seems less likely. His fever spikes or his white blood cell count continues to worsen, may consider adding vancomycin -blood cultures pending (3) Anemia: Qualifiers: Anemia type: unspecified type Qualified Code(s): D64.9 - Anemia, unspecified Code(s): D64.9 - Anemia, unspecified Status: Acute Assessment and Plan: Suspected secondary to epistaxis although baseline hemoglobin is unknown, no previous labs for comparison -Hgb 6.8 06/08/20 and received 2 units packed RBC -hemoglobin 8.2 today, stable (4) Chronic anticoagulation: Code(s): Z79.01 - intermodal customer service (current) use of anticoagulants Status: Chronic Assessment and Plan: Patient on long-term anticoagulation with warfarin since around 2008 s/p old CVA as well as defibrillator placement. -Continue to monitor PT/INR daily with goal 2.0-3.0. INR was 4.0 on arrival - warfarin was held. INR 3.9 on 1/2 - warfarin held. INR 2.7 on 06/09 - warfarin resumed at lower dose - 3mg daily. INR 2.4 06/10 -INR 3.0 today. Will hold warfarin and may restart of the lower dose tomorrow -Warfarin managed by Dr Vic Mortensen at [place]. Patient reports last INR drawn 05/27 was normal. (5) Coronary artery disease: Qualifiers: Coronary Disease-Associated Artery/Lesion type: unspecified vessel or lesion type [place] vs. transplanted heart: [place] heart Associated angina: without angina Qualified Code(s): I25.10 - Atherosclerotic heart disease of [place] coronary artery without angina pectoris Code(s): I25.10 - Atherosclerotic heart disease of [place] coronary artery without angina pectoris Status: Chronic Assessment and Plan: Stable, no chest pain. Gas Load Dispatcher is Dr Ramy Gross at [place]. (6) Hyperlipidemia: Qualifiers: Hyperlipidemia type: unspecified Qualified Code(s): E78.5 - Hyperlipidemia, unspecified Code(s): E78.5 - Hyperlipidemia, unspecified Status: Chronic Assessment and Plan: Maintained on statin therapy. (7) Hypertension: Qualifiers: Hypertension type: unspecified Qualified Code(s): I10 - Essential (primary) hypertension Code(s): I10 - Essential (primary) hypertension Status: Chronic Assessment and Plan: Last blood pressure 127/60 -continue Coreg -lisinopril held due to renal function (8) Renal failure: Qualifiers: Renal failure chronicity: unspecified chronicity Qualified Code(s): N19 - Unspecified kidney failure Code(s): N19 - Unspecified kidney failure Status: Acute Assessment and Plan: Documentations from [facility] creatinin
[2020-06-11 14:00] VITALS: BP 102/53; PULSE 101; RESP 20; TEMP 36.4; O2SAT 93
[2020-06-11 16:35] VITALS: O2SAT 94
[2020-06-11 18:01] VITALS: PULSE 108
--- NOTE | 2020-06-11 18:37 | WPDPN ---
Progress Note: A&P Assessment and Plan (1) Epistaxis: Code(s): R04.0 - Epistaxis Status: Acute Assessment and Plan: Balloon deflated. Plan to remove tomorrow pm. If patient re bleeds please re inflate balloon until bleeding stops. Ok to call with questions [phone]. [address] vaseline tid when awake over anterior scab/blood. Please spray saline every 4-6 hours around deflated rhino rocket when awake and when able (once scab/blood softens anteriorly). Thanks Objective Data Vital Signs Vital Signs: Vital Signs - 24 hr 06/10/20 22:00 06/11/20 06:00 06/11/20 08:17 Temperature 37.3 C 36.6 C Pulse Rate 92 97 104 H Respiratory Rate 22 H 22 H Blood Pressure 113/54 L 127/60 Pulse Oximetry 96 99 06/11/20 14:00 06/11/20 16:35 06/11/20 18:01 Temperature 36.4 C L Pulse Rate 101 H 108 H Respiratory Rate 20 Blood Pressure 102/53 L Pulse Oximetry 93 94 Intake/Output Intake/Output: Intake & Output 06/08/20 06/09/20 06/10/20 06/11/20 23:59 23:59 23:59 23:59 Intake Total 2580 3770 3290 1230 Output Total 1100 900 850 750 Balance 1480 2870 2440 480 Meds/Results Medications: Active Medications Generic Name Dose Route Start Last Admin Trade Name Freq PRN Reason Stop Dose Admin Acetaminophen 650 mg 06/08/20 00:32 06/09/20 22:03 Acetaminophen 325 Mg Tablet PO 650 mg Q4H PRN Administration Mild Pain (1-3) or Fever Carvedilol 6.25 mg 06/08/20 08:00 06/11/20 18:01 Carvedilol 6.25 Mg Tablet PO 6.25 mg BIDWM CALVIN Administration Emollient Ointment 1 applic 06/12/20 09:00 Petrolatum Oint 30 Gm Tube TOPICAL TID CALVIN Furosemide 40 mg 06/08/20 09:00 Furosemide 40 Mg Tablet PO DAILY CALVIN Piperacillin/Tazobactam/Dextrose 3.375 gm in 50 mls @ 100 mls/hr 06/10/20 18:00 06/11/20 18:01 Zosyn 3.375 Gm/D5w 50ml Pm IVPB 100 mls/hr Q6H CALVIN Administration Lisinopril 10 mg 06/08/20 21:00 06/08/20 20:56 Lisinopril 10 Mg Tablet PO 10 mg HS CALVIN Administration Simvastatin 40 mg 06/08/20 21:00 06/10/20 20:37 Simvastatin 20 Mg Tablet PO 40 mg HS CALVIN Administration Sodium Chloride 1 spray 06/11/20 18:34 Saline 0.65% Juvencio Soln 44 Ml Btl NASAL Q6HR PRN Congestion Warfarin Sodium 3 mg 06/09/20 17:00 06/10/20 18:07 Warfarin (*Pbkc) 3 Mg Tablet PO 3 mg DAILY@1700 CALVIN Administration Radiology Results: ITS Impressions Chest X-Ray 06/09/20 20:21 IMPRESSION: 1. Patchy bilateral airspace opacities, consistent with atelectasis versus pneumonia. Labs Labs: Laboratory Results - last 24 hr 06/10/20 06/11/20 06/11/20 09:09 06:07 06:07 WBC 13.5 H RBC 2.39 L Hgb 8.2 L Hct 25.8 L MCV 107.9 H MCH 34.3 H MCHC 31.8 L RDW 15.8 H Plt Count 158 MPV 10.1 Immature Gran % (Auto) 0.7 H Neut % (Auto) 80.7 H Lymph % (Auto) 5.9 L Dale % (Auto) 11.5 H Eos % (Auto) 0.9 Baso % (Auto) 0.3 Lymph # (Auto) 0.80 L Dale # (Auto) 1.6 H Eos # (Auto) 0.1 Baso # (Auto) 0.0 Abs Immat Gran (auto) 0.09 H Absolute Neuts (auto) 10.9 H Absolute Nucleated RBC 0.0 Nucleated RBC % 0.0 PT 31.7 H INR 3.0 Sodium Potassium Chloride Carbon Dioxide Anion Gap BUN Creatinine Estim Creat Clear Calc Estimated GFR Glucose Calcium Total Bilirubin AST ALT Alkaline Phosphatase Total Protein Albumin SARS-CoV-2 RNA (RT-PCR) Negative 06/11/20 06:07 WBC RBC Hgb Hct MCV MCH MCHC RDW Plt Count MPV Immature Gran % (Auto) Neut % (Auto) Lymph % (Auto) Dale % (Auto) Eos % (Auto) Baso % (Auto) Lymph # (Auto) Dale # (Auto) Eos # (Auto) Baso # (Auto) Abs Immat Gran (auto) Absolute Neuts (auto) Absolute Nucleated RBC Nucleated RBC % PT INR Sodium 141 Potassium 4.5 Chloride 117 H Carbon Dioxide 18 L Anion Gap 6 L BUN 42 H Creatinine 2.00
[2020-06-11] MEDS: SIMVASTATIN 20 MG TABLET 40 MG PO (21:00)
[2020-06-11 21:28] VITALS: BP 93/41; PULSE 93; RESP 20; TEMP 36.1; O2SAT 97
[2020-06-12 05:51] VITALS: BP 115/93; PULSE 83; RESP 20; TEMP 36.5; O2SAT 99
[2020-06-12 06:28] LABS: Basophils Percent Auto 0.3 % (0.2-1.2); Eosinophils Absolute Auto 0.7 K/mm3 (0-0.3); Eosinophils Percent Auto 6.7 % (0-4.4); Hematocrit 23.3 % (42.0-52.0); Hemoglobin 7.6 g/dL (14.0-18.0); Immature Granulocyte Absolute 0.06 K/mm3 (0.00-0.031); Immature Granulocyte Percent A 0.6 % (0-0.5); Lymphocytes Absolute Auto 1.18 K/mm3 (0.9-3.2); Lymphocytes Percent Auto 11.9 % (18.3-44.2); Mean Corpuscular HGB Conc 32.6 g/dl (32-36); Mean Corpuscular Hemoglobin 35.5 pg (26-34); Mean Corpuscular Volume 108.9 fl (80-100); Monocytes Absolute Auto 1.3 K/mm3 (0.1-0.6); Monocytes Percent Auto 12.6 % (2.6-8.5); Neutrophils Absolute Auto 6.7 K/mm3 (1.3-6.7); Neutrophils Percent Auto 67.9 % (45.5-73.1); Platelet Count Result 146 k/mm3 (150-375); Red Blood Count 2.14 M/mm3 (4.6-6.20); Red Cell Distribution Width 15.8 % (11.5-14.5); White Blood Count 9.9 K/mm3 (4.5-10.0)
[2020-06-12 06:36] LABS: INR 2.7; Prothrombin Time 29.4 Seconds (11.1-14.7)
[2020-06-12 06:42] LABS: Alanine Aminotransferase 19 U/L (4-50); Albumin Level 2.7 g/dL (3.5-5.1); Alkaline Phosphatase 74 U/L (38-126); Anion Gap 5 mmol/L (8-16); Aspartate Amino Transferase 36 U/L (17-59); Bilirubin,Total 1.3 mg/dL (0.2-1.3); Blood Urea Nitrogen 41 mg/dL (9-20); Calcium 7.8 mg/dL (8.4-10.2); Carbon Dioxide 19 mmol/L (22-30); Chloride 116 mmol/L (98-107); Estimated CRCL calculation 24 ml/min; Estimated Glomerular Filt Rate 30; Glucose 91 mg/dL (75-110); Sodium 140 mmol/L (137-145)
[2020-06-12 07:45] LABS: Folic Acid 11.3 ng/mL (2.76->20)
[2020-06-12 08:00] VITALS: PULSE 80; RESP 20; O2SAT 99
[2020-06-12 09:08] VITALS: PULSE 80
[2020-06-12] MEDS: carvediloL 6.25 MG TABLET PO (09:08)
--- NOTE | 2020-06-12 12:22 | WPDPN ---
Progress Note: A&P Assessment and Plan (1) Epistaxis: Code(s): R04.0 - Epistaxis Status: Acute Assessment and Plan: Rhinorocket removed. No bleeding noted. Recommend continued saline multiple times throughout the day while awake as well as bid afrin (large volume sprays) bid for 3 days. Please have the patient follow up in our clinic day after discharge. Pt does not need to remain inpatient from an otolaryngologic standpoint but may require work up re decreasing hemoglobin given report of no epistaxis and decreasing hemoglobin. Please call with any questions/concerns/re bleeding events. [phone] Objective Data Vital Signs Vital Signs: Vital Signs - 24 hr 06/11/20 14:00 06/11/20 16:35 06/11/20 18:01 Temperature 36.4 C L Pulse Rate 101 H 108 H Respiratory Rate 20 Blood Pressure 102/53 L Pulse Oximetry 93 94 06/11/20 21:28 06/12/20 05:51 06/12/20 08:00 Temperature 36.1 C L 36.5 C Pulse Rate 93 83 80 Respiratory Rate 20 20 20 Blood Pressure 93/41 L 115/93 H Pulse Oximetry 97 99 99 06/12/20 09:08 Temperature Pulse Rate 80 Respiratory Rate Blood Pressure Pulse Oximetry Intake/Output Intake/Output: Intake & Output 06/09/20 06/10/20 06/11/20 06/12/20 23:59 23:59 23:59 23:59 Intake Total 3770 3290 1700 830 Output Total 900 850 750 400 Balance 2870 2440 950 430 Meds/Results Medications: Active Medications Generic Name Dose Route Start Last Admin Trade Name Freq PRN Reason Stop Dose Admin Acetaminophen 650 mg 06/08/20 00:32 06/09/20 22:03 Acetaminophen 325 Mg Tablet PO 650 mg Q4H PRN Administration Mild Pain (1-3) or Fever Carvedilol 6.25 mg 06/08/20 08:00 06/12/20 09:08 Carvedilol 6.25 Mg Tablet PO 6.25 mg BIDWM CALVIN Administration Emollient Ointment 1 applic 06/11/20 18:45 06/12/20 09:09 Petrolatum Oint 30 Gm Tube TOPICAL 1 applic TID CALVIN Administration Furosemide 40 mg 06/08/20 09:00 Furosemide 40 Mg Tablet PO DAILY CALVIN Piperacillin/Tazobactam/Dextrose 3.375 gm in 50 mls @ 100 mls/hr 06/10/20 18:00 06/12/20 06:00 Zosyn 3.375 Gm/D5w 50ml Pm IVPB 100 mls/hr Q6H CALVIN Administration Lisinopril 10 mg 06/08/20 21:00 06/08/20 20:56 Lisinopril 10 Mg Tablet PO 10 mg HS CALVIN Administration Simvastatin 40 mg 06/08/20 21:00 06/11/20 21:00 Simvastatin 20 Mg Tablet PO 40 mg HS CALVIN Administration Sodium Chloride 1 spray 06/11/20 18:42 Saline 0.65% Juvencio Soln 44 Ml Btl NASAL Q6HR PRN Congestion Warfarin Sodium 3 mg 06/09/20 17:00 06/10/20 18:07 Warfarin (*Pbkc) 3 Mg Tablet PO 3 mg DAILY@1700 CALVIN Administration Radiology Results: ITS Impressions Chest X-Ray 06/09/20 20:21 IMPRESSION: 1. Patchy bilateral airspace opacities, consistent with atelectasis versus pneumonia. Labs Labs: Laboratory Results - last 24 hr 06/12/20 06/12/20 06/12/20 06:03 06:03 06:03 WBC 9.9 RBC 2.14 L Hgb 7.6 L Hct 23.3 L MCV 108.9 H MCH 35.5 H MCHC 32.6 RDW 15.8 H Plt Count 146 L MPV 10.0 Immature Gran % (Auto) 0.6 H Neut % (Auto) 67.9 Lymph % (Auto) 11.9 L [place] % (Auto) 12.6 H Eos % (Auto) 6.7 H Baso % (Auto) 0.3 Lymph # (Auto) 1.18 [place] # (Auto) 1.3 H Eos # (Auto) 0.7 H Baso # (Auto) 0.0 Abs Immat Gran (auto) 0.06 H Absolute Neuts (auto) 6.7 Absolute Nucleated RBC 0.0 Nucleated RBC % 0.0 PT 29.4 H INR 2.7 Sodium 140 Potassium 4.0 Chloride 116 H Carbon Dioxide 19 L Anion Gap 5 L BUN 41 H Creatinine 2.10 H Estim Creat Clear Calc 24 Estimated GFR 30 L Glucose 91 Calcium 7.8 L Total Bilirubin 1.3 AST 36 ALT 19 Alkaline Phosphatase 74 Total Protein 6.0 L Albumin 2.7 L Vitamin B12 923.0 Folate 11.3 Quality VTE Prophylaxis VTE prophylaxis: mechanical ordered Subjective Date/time seen: 06/12/20 12:22. No repo
[2020-06-12 14:00] VITALS: BP 119/50; PULSE 93; RESP 24; TEMP 36.4; O2SAT 98
[2020-06-12 14:32] LABS: Hematocrit 24.6 % (42.0-52.0); Hemoglobin 7.8 g/dL (14.0-18.0)
--- NOTE | 2020-06-12 14:49 | PM.DS ---
DS: Admitting Diagnosis Admitting Diagnosis Admitting Diagnosis: Epistaxis on warfarin DS: Discharge Diagnosis Discharge Diagnosis (1) Epistaxis: Code(s): R04.0 - Epistaxis Status: Acute Assessment and Plan: Patient on long-term anticoagulation with warfarin for h/o CVA and defibrillator placement presents with significant epistaxis. - Rhino Rocket placed in the ED 06/07/20 - Dr Irizarry, ENT on the case who removed the rhino rocket 06/12/20 with no bleeding -INR 2.7 and h&h 7.8 at discharge -warfarin dose decreased -pt to have a follow up INR and H&H wednesday06/14/20 -Follow up with Dr. Mortensen with above labs. I tried and call his office and wanted on hold for 30 min and when I reached someone they accidently hung up on me and then I could not reach them further. I have asked the pt to call his pcp after discharge and set up an appointment with him. Discharge summary should be sent to him. (2) Pneumonia: Code(s): J18.9 - Pneumonia, unspecified organism Status: Acute Assessment and Plan: Leukocytosis and fever with shortness of breath prompted chest XR which demonstrates JUAN patchy opacities starting 06/08/19. -Zosyn started 06/10/19 with no fever after -Discharged on augmentin -white blood cell count now normal -likely due to pneumonia, but cannot rule out packing component from nasal area as source of infection -patient is improving without vancomycin, MRSA seems less likely. -blood cultures pending (3) Anemia: Qualifiers: Anemia type: unspecified type Qualified Code(s): D64.9 - Anemia, unspecified Code(s): D64.9 - Anemia, unspecified Status: Acute Assessment and Plan: Suspected secondary to epistaxis although baseline hemoglobin is unknown, no previous labs for comparison -Hgb 6.8 06/08/20 and received 2 units packed RBC -hemoglobin 7.8 at discharge, stable (4) Chronic anticoagulation: Code(s): Z79.01 - terminal operator (current) use of anticoagulants Status: Chronic Assessment and Plan: Patient on long-term anticoagulation with warfarin since around 2008 s/p old CVA as well as defibrillator placement. -Continue to monitor PT/INR daily with goal 2.0-3.0. INR was 4.0 on arrival - warfarin was held. INR 3.9 on 06/08 - warfarin held. -INR day of discharge 2.7 and plans to restart warfarin at lower dose and f/u with an INR wednesday and his pcp (5) Coronary artery disease: Qualifiers: Coronary Disease-Associated Artery/Lesion type: unspecified vessel or lesion type [place] vs. transplanted heart: [place] heart Associated angina: without angina Qualified Code(s): I25.10 - Atherosclerotic heart disease of [place] coronary artery without angina pectoris Code(s): I25.10 - Atherosclerotic heart disease of [place] coronary artery without angina pectoris Status: Chronic Assessment and Plan: Stable, no chest pain. [employer] is Dr Ramy Gross at [place]. (6) Hyperlipidemia: Qualifiers: Hyperlipidemia type: unspecified Qualified Code(s): E78.5 - Hyperlipidemia, unspecified Code(s): E78.5 - Hyperlipidemia, unspecified Status: Chronic Assessment and Plan: Maintained on statin therapy. (7) Hypertension: Qualifiers: Hypertension type: unspecified Qualified Code(s): I10 - Essential (primary) hypertension Code(s): I10 - Essential (primary) hypertension Status: Chronic Assessment and Plan: Last blood pressure 119/50 -continue Coreg (8) Renal failure: Qualifiers: Renal failure chronicity: unspecified chronicity Qualified Code(s): N19 - Unspecified kidney failure Code(s): N19 - Unspecified kidney failure Status: Acute Assessment and Plan: Documentations from [facility] creatinine of 2.2 on 11/15/19 leading me to believe this is chronic -Patient notes he has never been told he had kidney issues in the past -khadar
--- NOTE | 2020-06-18 13:21 | PC.NURSE ---
Blood cx are negative.
== END 2020-06-12 16:10 | disposition home health service (06) | DRG 150 ==
LOC: ANHED 22:21 → ANH2MED 23:57 → ANH3MEDSUR 06-11 06:55 → ANH2MED 06-14 10:48 → ANH3MEDSUR 06-14 10:48
PROVIDERS: Physician Assistant; Admitting Provider Family Medicine; Emergency Provider Emergency Medicine; PCP Internal Medicine; Visit Provider Physician Assistant
DX: R04.0 Epistaxis (principal); J18.9 Pneumonia, unspecified organism; Z20.822 Contact with and (suspected) exposure to COVID-19; D64.9 Anemia, unspecified; I12.9 Hypertensive chronic kidney disease with stage 1 through stage 4 chronic kidney disease, or unspecified chronic kidney disease; N18.9 Chronic kidney disease, unspecified; I25.10 Atherosclerotic heart disease of native coronary artery without angina pectoris; E78.5 Hyperlipidemia, unspecified; I67.2 Cerebral atherosclerosis; F17.210 Nicotine dependence, cigarettes, uncomplicated; Z79.01 Long term (current) use of anticoagulants; Z79.82 Long term (current) use of aspirin; Z79.899 Other long term (current) drug therapy; Z86.73 Personal history of transient ischemic attack (TIA), and cerebral infarction without residual deficits; Z95.810 Presence of automatic (implantable) cardiac defibrillator; Z95.5 Presence of coronary angioplasty implant and graft
CPT/HCPCS: 30901; 36415; 36430; 71046; 80048; 80053; 81001; 82607; 82746; 83735; 85014; 85018; 85025; 85610; 85730; 86850; 86900; 86901; 86923; 87040; 96360; 96361; 97110; 97116; 97161; 97165; 97530; 97535; 99285; A9270; C9803; G0378; J2543; J7030; J7050; P9016; U0003

== ENCOUNTER 2020-06-14 11:32 | Outpatient (NON) | payer MEDICARE, OTHER, SELFPAY ==
[2020-06-14 12:09] LABS: Hematocrit 25.1 % (42.0-52.0)
[2020-06-14 12:21] LABS: INR 1.8; Prothrombin Time 21.3 Seconds (11.1-14.7)
== END 2020-06-14 11:33 ==
LOC: ANHLAB 11:57 → HOME HLTH 11:59
PROVIDERS: PCP Internal Medicine; Visit Provider Physician Assistant
DX: D64.9 Anemia, unspecified (principal); I48.91 Unspecified atrial fibrillation
CPT/HCPCS: 85014; 85018; 85610

== ENCOUNTER 2020-06-24 12:17 | Outpatient (NON) | payer MEDICARE, OTHER, SELFPAY ==
[2020-06-24 12:51] LABS: INR 1.9; Prothrombin Time 22.4 Seconds (11.1-14.7)
== END 2020-06-24 12:18 ==
PROVIDERS: PCP Internal Medicine; Visit Provider Internal Medicine
DX: D64.9 Anemia, unspecified (principal); Z79.01 Long term (current) use of anticoagulants
CPT/HCPCS: 85610

== ENCOUNTER 2020-07-09 11:42 | Outpatient (NON) | payer MEDICARE, OTHER, SELFPAY ==
[2020-07-09 12:32] LABS: Prothrombin Time 22.9 Seconds (11.1-14.7)
== END 2020-07-09 11:43 ==
PROVIDERS: Physician Assistant; PCP Internal Medicine; Visit Provider Internal Medicine
DX: J18.9 Pneumonia, unspecified organism (principal); I25.10 Atherosclerotic heart disease of native coronary artery without angina pectoris; I10 Essential (primary) hypertension; D64.9 Anemia, unspecified
CPT/HCPCS: 85610

== ENCOUNTER 2021-03-30 18:43 | Inpatient (IN) | payer MEDICARE, OTHER, SELFPAY ==
--- NOTE | ~2021-03-30 | XR_ITS ---
XR hand LT min 3V DATE: 03/30/2021 19:15 INDICATION: Generalized left hand pain, swelling TECHNIQUE: 4 views COMPARISON: None FINDINGS: Diffuse osteopenia. There is mild chondrocalcinosis at the triangular cartilage and carpal joints. There is osteoarthritic change involving primarily the interphalangeal joints. No erosive change is e vident. No fracture or dislocation, periosteal reaction or bone destruction. 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
--- NOTE | ~2021-03-30 | XR_ITS ---
XR chest 1V DATE: 03/30/2021 19:15 INDICATION: Weakness. Hypertension. Atrial fibrillation. TECHNIQUE: AP chest COMPARISON: 06/09/2020 2 view chest FINDINGS: Left AICD/pacemaker device with leads overlying right atrium and right ventricle. Cardiac megaly. Aortic calcification and mild unfolding. Bilateral hyperinflation. No pulmonary infiltrate or consolidation, pleural effusion or pulmonary vas cular congestion or pneumothorax. Diffuse osteopenia. Bilateral chronic rotator cuff atrophy. IMPRESSION: Cardiomegaly Left AICD dual-lead pacemaker device Aortic atherosclerosis Bilateral hyperinflation; no active pulmonary disease Reviewed, dictated and finalized at location A.
--- NOTE | ~2021-03-30 | XR_ITS ---
XR shoulder RT min 2V DATE: 03/30/2021 19:15 INDICATION: Generalized right shoulder pain TECHNIQUE: 4 views COMPARISON: None FINDINGS: There is diffuse osteopenia. There is chronic rotator cuff atrophy, the humeral head abutting the undersurface of the acromion pro cess. There is some calcification in the area of the rotator cuff consistent with calcific tendinitis. There is degenerative change at the acromioclavicular joint. There is prominent osteoarthritic change at the glenohumeral joint. No fracture or dislocation, periosteal reaction or bone destruction is detected. 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
--- NOTE | ~2021-03-30 | US_ITS ---
EXAMINATION: US renal BI DATE: 04/01/2021 14:17 INDICATION: Acute kidney injury TECHNIQUE: Multiple grayscale and Doppler ultrasound images of the kidneys were obtained. COMPARISON: None. FINDINGS: The right kidney measures 9.3 x 4.1 x 5.3 cm. The left kidney measures 10.5 x 4.2 x 5.6 cm. The kidneys demonstrate increased parenchymal echogenicity. There is no hydronephrosis. The bladder is normal. IMPRESSION: 1. Medical renal disease. Reviewed, dictated and finalized at location A. IMPRESSION: 1. Medical renal disease.
[2021-03-30 18:52] VITALS: BP 108/53; PULSE 132; RESP 17; TEMP 36.3; O2SAT 99
--- NOTE | 2021-03-30 18:55 | ECG_ITS ---
Measurements Intervals [place] Rate: 86 P: NH: 0 QRS: -8 QRSD: 112 T: 74 QT: 381 QTc: 458 Interpretive Statements ATRIAL FIBRILLATION INTRAVENTRICULAR CONDUCTION DELAY BASELINE ARTIFACT- I, II, III, AVR, AVL, AVF, V2-V6 ABNORMAL ECG Electronically Signed On 03-30-2021 22:34:01 CDT by Lukasz Hudson D.O.
--- NOTE | 2021-03-30 19:16 | PC.NURSE ---
Patient report received. Assumed care of patient at this time.
[2021-03-30 19:25] VITALS: PULSE 119; RESP 15; O2SAT 100
[2021-03-30 19:30] VITALS: PULSE 88; RESP 18; O2SAT 100
[2021-03-30 19:30] LABS: Basophils Absolute Auto 0.1 K/mm3 (0.0-0.1); Basophils Percent Auto 0.3 % (0.2-1.2); Eosinophils Absolute Auto 0.2 K/mm3 (0-0.3); Eosinophils Percent Auto 1.1 % (0-4.4); Hematocrit 29.4 % (42.0-52.0); Hemoglobin 9.6 g/dL (14.0-18.0); Immature Granulocyte Absolute 0.09 K/mm3 (0.00-0.031); Immature Granulocyte Percent A 0.6 % (0-0.5); Lymphocytes Absolute Auto 1.15 K/mm3 (0.9-3.2); Lymphocytes Percent Auto 7.6 % (18.3-44.2); Mean Corpuscular HGB Conc 32.7 g/dl (32-36); Mean Corpuscular Hemoglobin 36.2 pg (26-34); Mean Corpuscular Volume 110.9 fl (80-100); Mean Platelet Volume 9.6 fl (7.4-10.4); Monocytes Absolute Auto 1.7 K/mm3 (0.1-0.6); Monocytes Percent Auto 10.9 % (2.6-8.5); Neutrophils Absolute Auto 12.1 K/mm3 (1.3-6.7); Neutrophils Percent Auto 79.5 % (45.5-73.1); Platelet Count Result 215 k/mm3 (150-375); Red Blood Count 2.65 M/mm3 (4.6-6.20); Red Cell Distribution Width 13.2 % (11.5-14.5); White Blood Count 15.2 K/mm3 (4.5-10.0)
[2021-03-30] MEDS: SODIUM CHLORIDE 0.9% IV 1,000 ML 999 ML IV CONT ×2 (19:32→20:08)
[2021-03-30 19:43] LABS: Alanine Aminotransferase 25 U/L (4-50); Albumin Level 3.6 g/dL (3.5-5.1); Alkaline Phosphatase 162 U/L (38-126); Anion Gap 13 mmol/L (8-16); Aspartate Amino Transferase 54 U/L (17-59); Bilirubin,Total 0.9 mg/dL (0.2-1.3); Blood Urea Nitrogen 64 mg/dL (9-20); Calcium 8.3 mg/dL (8.4-10.2); Carbon Dioxide 19 mmol/L (22-30); Chloride 103 mmol/L (98-107); Estimated CRCL calculation 14 ml/min; Estimated Glomerular Filt Rate 17; Glucose 113 mg/dL (65-110); Potassium 4.3 mmol/L (3.4-5.0); Sodium 135 mmol/L (137-145)
[2021-03-30 19:55] VITALS: PULSE 83; RESP 20; O2SAT 99
[2021-03-30] MEDS: ONDANSETRON INJ 4 MG/2 ML VIAL IV PUSH (20:07)
[2021-03-30 20:18] LABS: INR 3.4; Prothrombin Time 33.1 Seconds (11.1-14.7)
[2021-03-30 20:20] LABS: Partial Thromboplastin Time 65.8 SECONDS (22.3-36.8)
[2021-03-30 20:32] LABS: Erythrocyte Sedimentation Rate 65 mm/hr (0-20)
[2021-03-30 20:33] LABS: Creatine Kinase 293 U/L (55-170)
[2021-03-30 20:35] VITALS: BP 124/76; PULSE 95; RESP 19; O2SAT 97
--- NOTE | 2021-03-30 20:58 | ED.GENADULT ---
HPI - General Adult General Chief complaint: Weakness Stated complaint: left hand swelling, no feeling Time Seen by Provider: 03/30/21 19:28 History of Present Illness HPI narrative: Patient 80-year-old gentleman who presents the emergency department with chief complaint of generalized weakness. Patient reports that he did a exercise class for 2 days at the local independent living facility where he lives that afterwards he noticed that he was aching over his entire body worse in his right shoulder and left wrist patient noticed that it was a little bit swollen does have a history of A. fib is not had any chest pain not having shortness of breath denies abdominal pain denies vomiting or diarrhea. Patient has been getting progressively weaker at home had to call his son to come stay with him and help him get up the son noticed that he is requiring extensive assistance to try to ambulate. Related Data Home Medications Medication Instructions Recorded Confirmed aspirin 81 mg PO DAILY 06/08/20 06/08/20 carvedilol [Coreg] 6.25 mg PO BID 06/08/20 06/08/20 furosemide 40 mg PO DAILY 06/08/20 06/08/20 lisinopril 10 mg PO HS 06/08/20 06/08/20 simvastatin 40 mg PO HS 06/08/20 06/08/20 Allergies Allergy/AdvReac Type Severity Reaction Status Date / Time No Known Allergies Allergy Verified 03/30/21 19:28 Review of Systems Review of Systems: A 10 system review of systems was completed on the patient and is negative except for what is stated in the HPI. Nursing and ancillary documentation was reviewed. [facility] Past Medical History Medical History Cerebral arteriosclerosis with history of previous stroke Hyperlipidemia Hypertension Surgical History Surgical History History of coronary artery stent placement Family History Family History Mother Breast cancer Social History Social History Years smoked: 60 Smoking status: Current every day smoker Tobacco type: cigarettes Second hand tobacco smoke exposure: Yes Alcohol intake: current Drinks per week: 6 Substance use: never Substance use type: does not use Gender identity (if verbalized by the patient): Male Spiritual care concerns: No Exam Narrative: A 10 system review of systems was completed on the patient and is negative except for what is stated in the HPI. Nursing and ancillary documentation was reviewed. Course Course Emergency Course: GENERAL: Well-appearing, well-nourished, and in no acute distress. HEAD: Normocephalic, atraumatic. EYES: PERRLA and EOMI. ENT: Nares clear, no rhinorrhea or epistaxis. Mucous membranes moist. NECK: Supple. CHEST: Clear to auscultation. No respiratory distress. HEART: Regular rate and rhythm. No murmur heard. Normal peripheral pulses. ABDOMEN: Soft, nontender, nondistended, normal active bowel sounds. EXTREMITIES: Normal range of motion. No edema. SKIN: Warm, dry, no rash. NEURO: No focal deficits. Alert and oriented x3. PSYCH: Normal mood and affect. Vital Signs Vital signs: Vital Signs Temperature 36.3 C L 03/30/21 18:52 Pulse Rate 132 H 03/30/21 18:52 Respiratory Rate 17 03/30/21 18:52 Blood Pressure 108/53 L 03/30/21 18:52 Pulse Oximetry 99 03/30/21 18:52 Temperature 36.3 C L 03/30/21 18:52 Pulse Rate 88 03/30/21 19:30 Respiratory Rate 18 03/30/21 19:30 Blood Pressure 108/53 L 03/30/21 18:52 Pulse Oximetry 100 03/30/21 19:30 Medical Decision Making Vital Signs Vital Signs: Vital Signs Temperature 36.3 C L 03/30/21 18:52 Pulse Rate 132 H 03/30/21 18:52 Respiratory Rate 17 03/30/21 18:52 Blood Pressure 108/53 L 03/30/21 18:52 Pulse Oximetry 99 03/30/21 18:52 Temperature 36.3 C L 03/30/21 18
[2021-03-30 21:00] LABS: CRP 25.7 mg/dL (<1.0)
[2021-03-30 21:22] LABS: Add Urine Microscopic? YES; Appearance Urine Cloudy (Clear); Bilirubin Urine Negative (Negative); Blood Urine 2+ (Negative); Color Urine Yellow (Yellow); Glucose Urine UA Negative (Negative); Ketones Urine Negative (Negative); Leukocyte Esterase Ur Trace LEU/UL (Negative); Nitrate Urine Negative (Negative); Protein Urine 2+ mg/dL (Negative); RBC Urine 0-2 /hpf (0-2); Specific Grav Ur 1.016 (1.001-1.035); Urobilinogen Urine Negative mg/dL (<2.0)
[2021-03-30 21:28] LABS: Lactic Acid Reflex 0.9 mmol/L (0.7-2.1); Magnesium 2.1 mg/dL (1.6-2.3)
[2021-03-30 21:48] LABS: NT Pro B Type Natriuretic Pept 12000 pg/mL (5-100); Troponin I 0.115 ng/mL (0.000-0.034)
[2021-03-30 22:30] VITALS: BP 123/87; PULSE 91; RESP 29; O2SAT 97
[2021-03-30 22:59] LABS: Troponin I 0.099 ng/mL (0.000-0.034)
[2021-03-31] VITALS (19 sets, daily range): BP systolic 93–132; BP diastolic 35–63; PULSE 78–107; RESP 16–22; TEMP 36.1–37; O2SAT 97–100; BMI 22.8
--- NOTE | 2021-03-31 01:09 | PM.IMHP ---
H&P: HPI History of Present Illness Date/Time: 03/31/21 01:09 Chief Complaint: Weakness Narrative: 80-year-old male with a past medical history of CVA, coronary artery disease, atrial fibrillation, AICD and chronic kidney disease stage 4 who presented to the ER with weakness for several days. The patient reports that 1 week ago he went to the fitness center at his independent living facility and decided to work out. He had not gotten work out since the beginning of the COVID pandemic when the close the center. He thinks that he over did it when he went to the fitness center on both Wednesday and Wednesday because the following days he developed right shoulder pain and left wrist and hand pain. The pain is a 4/10 in intensity and is worse with movement. He has associated swelling of the left wrist and hand. He also reports generalized myalgias over his whole body. Despite trying to rest he has been having increased weakness. He is now requiring extensive assistance to ambulate when previously he walked with a cane. He denies having any chest pain, shortness of breath or palpitations. He has not noticed any changes in urinary frequency or urgency. He does have difficulty with starting and stopping his urinary stream. He occasionally has a sensation of incomplete bladder emptying. He denies any orthopnea, paroxysmal nocturnal dyspnea or lower extremity swelling. He has not had any recent ill contacts. He denies any cough or congestion. He is vaccinated against COVID. Review of Systems Review of Systems: 12 systems were reviewed with pertinent positives and negatives per HPI. Except as documented in the HPI, all other systems were reviewed and are negative. 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 CHF (congestive heart failure) Chronic kidney disease, stage IV (severe) Coronary artery disease Hyperlipidemia Hypertension Skin cancer To nose and left wrist with radiation treatments to left wrist Tobacco dependence Vitamin D deficiency Warfarin anticoagulation Surgical History Surgical History (Updated 03/31/21 @ 01:20 by Destiny Holcomb DO) AICD (automatic cardioverter/defibrillator) present (~2005) History of appendectomy History of coronary artery stent placement With 3 stents placed in 2001 and 2002 Status post cataract extraction of both eyes with insertion of intraocular lens Family History Family History Mother Breast cancer Daughter Breast cancer Social History Social History (Updated 03/31/21 @ 07:18 by Destiny Holcomb DO) Social History: He lives at [facility]. He is retired from the [employer] after 20 years of service. 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 He continues to smoke half a pack of cigarettes per day he started smoking at the age of 16. Primary care physician: Dr. Oneal Carrasco Code status: Full code Healthcare power of deputy commonwealth's attorney: Gonzalo (son) Smoking packs per day: 0.5 Smoking cigarettes per day: 10.0 Years smoked: 64 Smoking pack-years: 32.00 Smoking status: Current every day smoker Second hand tobacco smoke exposure: Yes Alcohol intake: current Drinks per week: 6 Substance use: never Substance use type: does not use Gender identity (if verbalized by the patient): Male Spiritual care concerns: No Meds Home Medications and Allergies Home Medications Medication Instructions Recorded Confirmed Type aspirin 81 mg PO DAILY 06/08/20 03/31/21 History carvedilol [Coreg] 6.25 mg PO BID 06/08/20 03/31/21 History furosemide 40 mg PO DAILY 06/08/20 03/31/21 History lisinopril
[2021-03-31] MEDS: ACETAMINOPHEN 325 MG TABLET 650 MG PO ×4 (01:57→20:25)
[2021-03-31] MEDS: SODIUM CHLORIDE 0.9% IV 1,000 ML 100 ML IV CONT ×3 (01:58→21:27)
[2021-03-31 02:12] LABS: Hematocrit 29.4 % (42.0-52.0); Hemoglobin 9.5 g/dL (14.0-18.0); Mean Corpuscular HGB Conc 32.3 g/dl (32-36); Mean Corpuscular Hemoglobin 36.5 pg (26-34); Mean Corpuscular Volume 113.1 fl (80-100); Mean Platelet Volume 9.8 fl (7.4-10.4); Platelet Count Result 216 k/mm3 (150-375); Red Cell Distribution Width 13.2 % (11.5-14.5); White Blood Count 14.1 K/mm3 (4.5-10.0)
[2021-03-31 02:34] LABS: Anion Gap 10 mmol/L (8-16); Blood Urea Nitrogen 56 mg/dL (9-20); Calcium 7.8 mg/dL (8.4-10.2); Carbon Dioxide 19 mmol/L (22-30); Chloride 107 mmol/L (98-107); Estimated CRCL calculation 15 ml/min; Estimated Glomerular Filt Rate 19; Glucose 122 mg/dL (65-110); Potassium 4.6 mmol/L (3.4-5.0); Sodium 136 mmol/L (137-145)
[2021-03-31 02:50] LABS: Troponin I 0.102 ng/mL (0.000-0.034)
--- NOTE | 2021-03-31 06:00 | ADMGEN ---
This patient, Gerry Jensen, was admitted to IMU Room 211-01 at 0015 on 03/31/2021. Patient/family oriented to hospital policies and general routines including ID bracelet, bed and alarms, visiting hours, pain management, procedures, bathroom and other care routines, personal items, smoking policy, room service/diet, and visiting hours. Information on how to activate the Rapid Response Team has been discussed. Patient/Family are encouraged to report perceived risks to care and to ask questions if they do not understand what they are told or what they should do.
[2021-03-31 07:55] LABS: INR 3.7; Prothrombin Time 35.2 Seconds (11.1-14.7)
[2021-03-31] MEDS: FERROUS SULFATE 324 MG TABLET PO (08:21)
[2021-03-31] MEDS: MAGNESIUM OXIDE 200 MG TABLET PO (08:21)
[2021-03-31] MEDS: CHOLECALCIFEROL 1,000 UNITS TABLET 1000 UNITS PO (08:21)
[2021-03-31] MEDS: ASPIRIN 81 MG CHEWABLE TABLET PO (08:22)
[2021-03-31] MEDS: CYANOCOBALAMIN 1,000 MCG TABLET 1000 MCG PO (08:22)
[2021-03-31] MEDS: carvediloL 6.25 MG TABLET PO (08:22)
[2021-03-31 09:40] LABS: Uric Acid 8.5 mg/dL (3.5-8.5)
--- NOTE | 2021-03-31 13:19 | PM.IMPN ---
Progress Note: A&P Assessment and Plan (1) Acute kidney injury superimposed on chronic kidney disease: Code(s): N17.9 - Acute kidney failure, unspecified; N18.9 - Chronic kidney disease, unspecified Status: Acute Assessment and Plan: Patient has acute on chronic kidney disease. Baseline Cr runs 1.8-2.1 but Cr 3.4 on admission. TCK 293. He takes lisinopril and Lasix daily. Given the patient's report of incomplete bladder emptying and urinary symptoms will check postvoid residual to rule out obstructive uropathy. Check urine studies. Hold ACEI and Lasix. Cr better at 3.2. Continue IV fluid hydration and monitor I&O's closely. (2) Supratherapeutic INR: Code(s): R79.1 - Abnormal coagulation profile Status: Acute Assessment and Plan: Patient with a super therapeutic INR. Will hold the patient's Coumadin and check INR daily. (3) Elevated troponin: Code(s): R77.8 - Other specified abnormalities of plasma proteins Status: Acute Assessment and Plan: The patient has elevated troponin but troponin profile is flat. No evidence of acute cardiac ischemia. Troponin elevation likely due nonischemic myocardial injury or related to his MANJIT. Continue ASA, Coreg and Zocor. (4) Shoulder pain, right: Qualifiers: Chronicity: acute Qualified Code(s): M25.511 - Pain in right shoulder Code(s): M25.511 - Pain in right shoulder Status: Acute Assessment and Plan: The patient's shoulder pain due to overuse given recent exercise activities. Will provide Tylenol and localized pain relief. (5) Left hand pain: Code(s): M79.642 - Pain in left hand Status: Acute Assessment and Plan: The patient has significant left hand swelling and pain. This could be due to osteoarthritis, infection, gout or overuse. However patient also has significant elevated CRP and ESR. Uric acid 8.5. The patient's and does not appear to be overtly infected. There is no erythema but hand is warm. He does have extremely limited range of motion more so with active and passive. probably gout; no NSAIDS due to the MANJIT so will start steroids. (6) Tobacco dependence: Code(s): F17.200 - Nicotine dependence, unspecified, uncomplicated Status: Chronic Assessment and Plan: The patient was educated about the benefits of smoking cessation. (7) Atrial fibrillation: Code(s): I48.91 - Unspecified atrial fibrillation Status: Acute Assessment and Plan: Patient has chronic atrial fibrillation. This is noted by EKG. Rate is controlled with Coreg. Continue the same. INR supratherapeutic and Coumadin held today. Continue to check daily INR. (8) Hypertension: Qualifiers: Hypertension type: unspecified Qualified Code(s): I10 - Essential (primary) hypertension Code(s): I10 - Essential (primary) hypertension Status: Chronic Assessment and Plan: Patient's blood pressure was reviewed on 03/31 Blood pressure remains well controlled. Will continue current medications. (9) Anemia: Qualifiers: Anemia type: unspecified type Qualified Code(s): D64.9 - Anemia, unspecified Code(s): D64.9 - Anemia, unspecified Status: Acute Assessment and Plan: No active bleeding noted. Hgb 9 range and better then prior values. Will check iron studies and follow. Subjective Date/time seen: 03/31/21 13:19 Interval history: 80yo male with CKD and hx of CVA here for generalized weakness. Assuming care. Chart reviewed. Patient complains of left hand soreness. He slept poorly last night. No complaints of chest pain. He has not been out of bed. Has some nausea vomiting last evening but was able to eat breakfast without trouble this morning. He normally walks with a walker. He denies any shortness of breath or cough. Still smokes half a pack a day. He is voiding well. No dysur
[2021-03-31] MEDS: predniSONE 20 MG TABLET 40 MG PO (14:33)
[2021-03-31 15:13] LABS: Iron 34 ug/dL (49-181)
--- NOTE | 2021-03-31 15:17 | PCPTNOTE ---
Patient wants to wait until AM to try PT-not feeling well. RN notified. Will try in am.
[2021-03-31 15:22] LABS: Percent Iron Saturation 13 % (20-50)
[2021-03-31 15:49] LABS: Folic Acid 9.1 ng/mL (2.76->20); Vitamin B12 > 1000.0 pg/mL (239-931)
[2021-03-31] MEDS: SIMVASTATIN 20 MG TABLET 40 MG PO (20:25)
[2021-04-01] VITALS (15 sets, daily range): BP systolic 110–121; BP diastolic 42–52; PULSE 72–95; RESP 16–20; TEMP 36–37; O2SAT 95–100
[2021-04-01] MEDS: ACETAMINOPHEN 325 MG TABLET 650 MG PO ×3 (00:58→14:46)
[2021-04-01 05:11] LABS: Basophils Percent Auto 0.1 % (0.2-1.2); Hematocrit 25.5 % (42.0-52.0); Hemoglobin 8.5 g/dL (14.0-18.0); Immature Granulocyte Percent A 0.9 % (0-0.5); Lymphocytes Absolute Auto 0.41 K/mm3 (0.9-3.2); Lymphocytes Percent Auto 3.7 % (18.3-44.2); Mean Corpuscular HGB Conc 33.3 g/dl (32-36); Mean Corpuscular Hemoglobin 36.6 pg (26-34); Mean Corpuscular Volume 109.9 fl (80-100); Mean Platelet Volume 9.7 fl (7.4-10.4); Monocytes Absolute Auto 0.6 K/mm3 (0.1-0.6); Monocytes Percent Auto 5.1 % (2.6-8.5); Neutrophils Absolute Auto 9.9 K/mm3 (1.3-6.7); Neutrophils Percent Auto 90.2 % (45.5-73.1); Platelet Count Result 208 k/mm3 (150-375); Red Blood Count 2.32 M/mm3 (4.6-6.20); Red Cell Distribution Width 12.9 % (11.5-14.5)
[2021-04-01 05:18] LABS: Prothrombin Time 30.3 Seconds (11.1-14.7)
[2021-04-01 05:25] LABS: Albumin Level 2.7 g/dL (3.5-5.1); Anion Gap 8 mmol/L (8-16); Blood Urea Nitrogen 52 mg/dL (9-20); Calcium 7.7 mg/dL (8.4-10.2); Carbon Dioxide 15 mmol/L (22-30); Chloride 114 mmol/L (98-107); Estimated CRCL calculation 17 ml/min; Estimated Glomerular Filt Rate 22; Glucose 122 mg/dL (65-110); Phosphorus 3.6 mg/dL (2.5-4.5); Potassium 4.6 mmol/L (3.4-5.0); Sodium 137 mmol/L (137-145)
[2021-04-01 05:39] LABS: CRP 15.7 mg/dL (<1.0)
[2021-04-01] MEDS: SODIUM CHLORIDE 0.9% IV 1,000 ML 100 ML IV CONT (08:07)
[2021-04-01] MEDS: CYANOCOBALAMIN 1,000 MCG TABLET 1000 MCG PO (08:08)
[2021-04-01] MEDS: carvediloL 6.25 MG TABLET PO ×2 (08:08→17:40)
[2021-04-01] MEDS: FERROUS SULFATE 324 MG TABLET PO ×2 (08:08→17:40)
[2021-04-01] MEDS: MAGNESIUM OXIDE 200 MG TABLET PO (08:08)
[2021-04-01] MEDS: CHOLECALCIFEROL 1,000 UNITS TABLET 1000 UNITS PO (08:08)
[2021-04-01] MEDS: predniSONE 20 MG TABLET 40 MG PO (08:08)
[2021-04-01 08:39] LABS: Complement C3 81 mg/dL (88-165)
[2021-04-01] MEDS: ASPIRIN 81 MG CHEWABLE TABLET PO (09:08)
--- NOTE | 2021-04-01 13:35 | PM.IMPN ---
Progress Note: A&P Assessment and Plan (1) Acute kidney injury superimposed on chronic kidney disease: Code(s): N17.9 - Acute kidney failure, unspecified; N18.9 - Chronic kidney disease, unspecified Status: Acute Assessment and Plan: Patient has acute on chronic kidney disease. Baseline Cr runs 1.8-2.1 but Cr 3.4 on admission. TCK 293. He takes lisinopril and Lasix daily. Given the patient's report of incomplete bladder emptying and urinary symptoms will check postvoid residual to rule out obstructive uropathy. Cr better at 2.8. Continue to hold ACEI and Lasix. Continue IV fluid hydration and monitor I&O's closely. (2) Supratherapeutic INR: Code(s): R79.1 - Abnormal coagulation profile Status: Acute Assessment and Plan: Patient with a supratherapeutic INR. Patient's Coumadin was held and INR improved. Coumadin resumed today. Continue to check INR daily. (3) Elevated troponin: Code(s): R77.8 - Other specified abnormalities of plasma proteins Status: Acute Assessment and Plan: The patient has elevated troponin to 0.11 but troponin profile is flat. No evidence of acute cardiac ischemia. Troponin elevation likely due nonischemic myocardial injury or related to his MANJIT. Continue ASA, Coreg and Zocor. (4) Shoulder pain, right: Qualifiers: Chronicity: acute Qualified Code(s): M25.511 - Pain in right shoulder Code(s): M25.511 - Pain in right shoulder Status: Acute Assessment and Plan: The patient's shoulder pain due to overuse given recent exercise activities. Continue Tylenol and localized pain relief. (5) Left hand pain: Code(s): M79.642 - Pain in left hand Status: Acute Assessment and Plan: The patient has significant left hand swelling and pain. This could be due to osteoarthritis, infection, gout or overuse. However patient also has significant elevated CRP and ESR. Uric acid 8.5. Left hand xray showing diffuse osteopenia, chondrocalcinosis and OA. The patient does not appear to be overtly infected. There is no erythema but hand is warm. He does have extremely limited range of motion more so with active and passive. Probably gout; no NSAIDS due to the MANJIT so steroids started and symptoms better today. Continue to monitor. (6) Tobacco dependence: Code(s): F17.200 - Nicotine dependence, unspecified, uncomplicated Status: Chronic Assessment and Plan: The patient was educated about the benefits of smoking cessation. (7) Atrial fibrillation: Code(s): I48.91 - Unspecified atrial fibrillation Status: Acute Assessment and Plan: Patient has chronic atrial fibrillation. This is noted by EKG. Rate is controlled with Coreg. Continue the same. INR was supratherapeutic and Coumadin was held. INR better so will resume today. Continue to check daily INR. (8) Hypertension: Qualifiers: Hypertension type: unspecified Qualified Code(s): I10 - Essential (primary) hypertension Code(s): I10 - Essential (primary) hypertension Status: Chronic Assessment and Plan: Patient's blood pressure was reviewed on 04/01 Blood pressure remains well controlled. Will continue current medications with Coreg. (9) Anemia: Qualifiers: Anemia type: unspecified type Qualified Code(s): D64.9 - Anemia, unspecified Code(s): D64.9 - Anemia, unspecified Status: Acute Assessment and Plan: No active bleeding noted. Hgb 8-9 range and better then prior values. Iron studies mostly consistent with Anemia of Chronic Disease but Fe sat low so will advance oral iron. Check STR. Subjective Date/time seen: 04/01/21 13:35 Interval history: 80yo male with CKD and hx of CVA here for generalized weakness. Left hand feels better. Up to the chair and walked to the BR. No CP. Feels better overall. No SOB. Voiding better. Still smokes díaz
[2021-04-01 14:32] LABS: Creatinine Urine 76.5 mg/dL; Total Protein Urine Random 104 mg/dL; Ur Ttl Prot Creatinine Ratio 1.36 mg/mg (0-0.20)
[2021-04-01 14:38] LABS: Sodium Urine Random 35 meq/L
[2021-04-01 15:41] LABS: Eosinophil Urine None Seen % (None Seen)
[2021-04-01] MEDS: EUCERIN CREAM 120 GM JAR 1 APPLIC TOPICAL (17:39)
[2021-04-01] MEDS: SIMVASTATIN 20 MG TABLET 40 MG PO (21:02)
[2021-04-01] MEDS: WARFARIN (*PBKC) 3 MG TABLET PO (21:03)
[2021-04-01] MEDS: WARFARIN (*PBKC) 1 MG TABLET PO (21:03)
[2021-04-02] VITALS (11 sets, daily range): BP systolic 122–128; BP diastolic 49–71; PULSE 77–97; RESP 18–20; TEMP 36.3–36.7; O2SAT 96–100
[2021-04-02] MEDS: SODIUM CHLORIDE 0.9% IV 1,000 ML 100 ML IV CONT ×2 (04:10→14:47)
[2021-04-02 05:08] LABS: Hematocrit 26.7 % (42.0-52.0); Hemoglobin 8.8 g/dL (14.0-18.0); Mean Corpuscular Hemoglobin 37.1 pg (26-34); Mean Corpuscular Volume 112.7 fl (80-100); Mean Platelet Volume 9.7 fl (7.4-10.4); Platelet Count Result 243 k/mm3 (150-375); Red Blood Count 2.37 M/mm3 (4.6-6.20); Red Cell Distribution Width 13.2 % (11.5-14.5); White Blood Count 15.5 K/mm3 (4.5-10.0)
[2021-04-02 05:16] LABS: INR 2.3; Prothrombin Time 25.1 Seconds (11.1-14.7)
[2021-04-02 05:19] LABS: Albumin Level 2.6 g/dL (3.5-5.1); Anion Gap 10 mmol/L (8-16); Blood Urea Nitrogen 52 mg/dL (9-20); CRP 8.1 mg/dL (<1.0); Calcium 7.8 mg/dL (8.4-10.2); Carbon Dioxide 14 mmol/L (22-30); Chloride 114 mmol/L (98-107); Estimated CRCL calculation 21 ml/min; Estimated Glomerular Filt Rate 27; Glucose 94 mg/dL (65-110); Magnesium 2.2 mg/dL (1.6-2.3); Phosphorus 2.9 mg/dL (2.5-4.5); Potassium 4.6 mmol/L (3.4-5.0); Sodium 138 mmol/L (137-145)
[2021-04-02] MEDS: ACETAMINOPHEN 325 MG TABLET 650 MG PO ×2 (07:01→13:13)
[2021-04-02] MEDS: predniSONE 10 MG TABLET 30 MG PO (10:06)
[2021-04-02] MEDS: SODIUM BICARBONATE TAB 650 MG TABLET PO ×2 (10:06→17:59)
[2021-04-02] MEDS: carvediloL 6.25 MG TABLET PO ×2 (10:07→17:59)
[2021-04-02] MEDS: FERROUS SULFATE 324 MG TABLET PO ×2 (10:07→17:59)
[2021-04-02] MEDS: MAGNESIUM OXIDE 200 MG TABLET PO (10:08)
[2021-04-02] MEDS: ASPIRIN 81 MG CHEWABLE TABLET PO (10:08)
[2021-04-02] MEDS: CYANOCOBALAMIN 1,000 MCG TABLET 1000 MCG PO (10:09)
[2021-04-02] MEDS: CHOLECALCIFEROL 1,000 UNITS TABLET 1000 UNITS PO (10:09)
[2021-04-02] MEDS: EUCERIN CREAM 120 GM JAR 1 APPLIC TOPICAL (10:13)
--- NOTE | 2021-04-02 11:32 | PCDIET ---
Nutrition Follow-Up Complete: Nutrition Diagnosis: Involuntary weight loss related to decreased appetite as evidenced by admission assessment and documented 10 pound weight loss since 06/2020, reportedly without trying. Nutrition Goal: Patient to consume 75% of meals/supplements or greater. Goal in progress. Patient consumed an average of 52% of recorded meals since 03/31/21. Reports appetite is not big, but it is close to normal. Reports taking Ensure Compact BID. c/o trouble eating with one hand, but declined offer for dietary to cut up food for him. Last recorded weight is 77.3 kg which is increased from last review. +I/O. Bowel Motility: Last documented BM on 03/30/21. Labs Reviewed: WBC (15.5), RBC (2.37), Hgb (8.8), Hct (26.7), BUN (52), Cr (2.3), Alb (2.6), Aramis Ca (8.92) Meds Noted: Coreg, Vitamin B12, Ferrous Sulfate, Max-Ox, Prednisone, Zocor, Sodium Bicarbonate, NS at 100mL/hr, Vitamin D, Coumadin Additional Notes: Left lower leg with scab. Will continue to monitor with same goal. Nutrition Monitoring and Evaluation: Follow up in 5 days.
--- NOTE | 2021-04-02 15:00 | PM.IMPN ---
Progress Note: A&P Assessment and Plan (1) Acute kidney injury superimposed on chronic kidney disease: Code(s): N17.9 - Acute kidney failure, unspecified; N18.9 - Chronic kidney disease, unspecified Status: Acute Assessment and Plan: Patient has acute on chronic kidney disease. Baseline Cr runs 1.8-2.1 but Cr 3.4 on admission. TCK 293. He takes lisinopril and Lasix daily. Given the patient's report of incomplete bladder emptying and urinary symptoms, we checked postvoid residual and there was only minimal amount left in bladder. Cr better at 2.3. Continue to hold ACEI and Lasix. Will stop IV fluids now. Serum bicarb low at 14 now. Could be related to resolving renal function and dysregulation. Will add oral bicarb and follow. (2) Supratherapeutic INR: Code(s): R79.1 - Abnormal coagulation profile Status: Acute Assessment and Plan: Patient with a supratherapeutic INR. Patient's Coumadin was held and INR improved. Coumadin resumed 04/01. INR remaining in the therapeutic range. Continue to check INR daily. (3) Elevated troponin: Code(s): R77.8 - Other specified abnormalities of plasma proteins Status: Acute Assessment and Plan: The patient has elevated troponin to 0.11 but troponin profile is flat. No evidence of acute cardiac ischemia. Troponin elevation likely due nonischemic myocardial injury and/or related to his MANJIT. Continue ASA, Coreg and Zocor. (4) Shoulder pain, right: Qualifiers: Chronicity: acute Qualified Code(s): M25.511 - Pain in right shoulder Code(s): M25.511 - Pain in right shoulder Status: Acute Assessment and Plan: The patient's shoulder pain due to overuse given recent exercise activities. And he has a hx of chronic frozen shoulder. Continue Tylenol and localized pain relief. (5) Left hand pain: Code(s): M79.642 - Pain in left hand Status: Acute Assessment and Plan: The patient has significant left hand swelling and pain. This could be due to osteoarthritis, infection, gout or overuse. However patient also has significant elevated CRP and ESR. Uric acid 8.5. Left hand xray showing diffuse osteopenia, chondrocalcinosis and OA. The patient does not appear to be overtly infected. There is no erythema but hand is warm. He does have limited range of motion but better. Probably gout; no NSAIDS due to the MANJIT so steroids started and symptoms better. Encouraged him to use the hand more. OT following. Continue to monitor. Add Pepcid since on steroids and Coumadin (6) Tobacco dependence: Code(s): F17.200 - Nicotine dependence, unspecified, uncomplicated Status: Chronic Assessment and Plan: The patient was educated about the benefits of smoking cessation. (7) Atrial fibrillation: Code(s): I48.91 - Unspecified atrial fibrillation Status: Acute Assessment and Plan: Patient has chronic atrial fibrillation. This is noted by EKG and tele. Rate is controlled with Coreg. Continue the same. INR was supratherapeutic and Coumadin was held. INR better so Coumadin resumed. INR 2.3. Continue to check daily INR. (8) Hypertension: Qualifiers: Hypertension type: unspecified Qualified Code(s): I10 - Essential (primary) hypertension Code(s): I10 - Essential (primary) hypertension Status: Chronic Assessment and Plan: Patient's blood pressure was reviewed on 04/02 Blood pressure remains well controlled. Will continue current medications with Coreg. (9) Anemia: Qualifiers: Anemia type: unspecified type Qualified Code(s): D64.9 - Anemia, unspecified Code(s): D64.9 - Anemia, unspecified Status: Acute Assessment and Plan: No active bleeding noted. Hgb 8-9 range and better then prior values. Iron studies mostly consistent with Anemia of Chronic Disease but Fe sat low so we advanced oral iron. Follow.
[2021-04-02 16:14] LABS: EDCOVIDSCREEN Negative (Negative)
--- NOTE | 2021-04-02 17:13 | PM.DS ---
DS: Admitting Diagnosis Discharge Date 04/02/21 Admitting Diagnosis Weakness DS: Discharge Diagnosis Discharge Diagnosis (1) Acute kidney injury superimposed on chronic kidney disease: Code(s): N17.9 - Acute kidney failure, unspecified; N18.9 - Chronic kidney disease, unspecified Status: Acute Assessment and Plan: Patient has acute on chronic kidney disease. Baseline Cr runs 1.8-2.1 but Cr 3.4 on admission. TCK 293. He takes lisinopril and Lasix daily. Given the patient's report of incomplete bladder emptying and urinary symptoms, we checked postvoid residual but there was only minimal amount left in bladder. With IV fluids, Cr better at 2.3. Serum bicarb low at 14 so oral bicarb added. [place] related to resolving renal function and dysregulation. (2) Supratherapeutic INR: Code(s): R79.1 - Abnormal coagulation profile Status: Acute Assessment and Plan: Patient with a supratherapeutic INR. Patient's Coumadin was held and INR improved. Coumadin resumed 04/01. INR remaining in the therapeutic range. (3) Elevated troponin: Code(s): R77.8 - Other specified abnormalities of plasma proteins Status: Acute Assessment and Plan: The patient has elevated troponin to 0.11 but troponin profile is flat. No evidence of acute cardiac ischemia. Troponin elevation likely due nonischemic myocardial injury and/or related to his MANJIT. We continued ASA, Coreg and Zocor. (4) Shoulder pain, right: Qualifiers: Chronicity: acute Qualified Code(s): M25.511 - Pain in right shoulder Code(s): M25.511 - Pain in right shoulder Status: Acute Assessment and Plan: The patient's shoulder pain due to overuse given recent exercise activities. And he has a hx of chronic frozen shoulder. Tylenol for pain relief. (5) Left hand pain: Code(s): M79.642 - Pain in left hand Status: Acute Assessment and Plan: The patient has significant left hand swelling and pain. This could be due to osteoarthritis, infection, gout or overuse. However patient also has significant elevated CRP and ESR. Uric acid 8.5. Left hand xray showing diffuse osteopenia, chondrocalcinosis and OA. The patient does not appear to be overtly infected. There is no erythema but hand was warm. He did have decreased range of motion. Probably gout; no NSAIDS due to the MANJIT so steroids started and symptoms have improved. Encouraged him to use the hand more. OT following. Pepcid added since on steroids and Coumadin (6) Tobacco dependence: Code(s): F17.200 - Nicotine dependence, unspecified, uncomplicated Status: Chronic Assessment and Plan: The patient was educated about the benefits of smoking cessation. (7) Atrial fibrillation: Code(s): I48.91 - Unspecified atrial fibrillation Status: Acute Assessment and Plan: Patient has chronic atrial fibrillation. This is noted by EKG and tele. Rate remained well controlled with Coreg. INR was supratherapeutic and Coumadin was held. INR better so Coumadin resumed. INR remained in the therapeutic range. (8) Hypertension: Qualifiers: Hypertension type: unspecified Qualified Code(s): I10 - Essential (primary) hypertension Code(s): I10 - Essential (primary) hypertension Status: Chronic Assessment and Plan: Patient's blood pressure was monitored closely and remained well controlled. We continued current medications with Coreg. (9) Anemia: Qualifiers: Anemia type: unspecified type Qualified Code(s): D64.9 - Anemia, unspecified Code(s): D64.9 - Anemia, unspecified Status: Acute Assessment and Plan: No active bleeding noted. Hgb 8-9 range and better then prior values. Iron studies mostly consistent with Anemia of Chronic Disease but Fe sat low so we advanced oral iron. DS: Summary Hospital Course Reason for hospitalization: 8
--- NOTE | 2021-04-08 09:39 | PC.NURSE ---
BALJIT is negative. Dr. Ronaldo burgess.
[2021-04-08 16:57] LABS: Soluble Transferrin Receptor 0.87 mg/L (0.76-1.76)
--- NOTE | 2021-04-11 10:09 | PC.NURSE ---
STR is WNL- 0.87
== END 2021-04-02 19:15 | DRG 683 ==
LOC: ANHED 20:06 → ANHIMU 23:49
PROVIDERS: Emergency Medicine; Admitting Provider Internal Medicine; Emergency Provider Emergency Medicine; PCP Internal Medicine; Visit Provider Internal Medicine
DX: N17.9 Acute kidney failure, unspecified (principal); I69.351 Hemiplegia and hemiparesis following cerebral infarction affecting right dominant side; I5A Non-ischemic myocardial injury (non-traumatic); I48.20 Chronic atrial fibrillation, unspecified; I13.0 Hypertensive heart and chronic kidney disease with heart failure and stage 1 through stage 4 chronic kidney disease, or unspecified chronic kidney disease; M62.82 Rhabdomyolysis; I50.9 Heart failure, unspecified; N18.4 Chronic kidney disease, stage 4 (severe); R79.1 Abnormal coagulation profile; D63.1 Anemia in chronic kidney disease; M25.511 Pain in right shoulder; M10.042 Idiopathic gout, left hand; I25.10 Atherosclerotic heart disease of native coronary artery without angina pectoris; Z20.822 Contact with and (suspected) exposure to COVID-19; E78.5 Hyperlipidemia, unspecified; E55.9 Vitamin D deficiency, unspecified; F17.210 Nicotine dependence, cigarettes, uncomplicated; Z79.01 Long term (current) use of anticoagulants; Z79.82 Long term (current) use of aspirin; Z95.5 Presence of coronary angioplasty implant and graft; Z85.828 Personal history of other malignant neoplasm of skin; Z95.810 Presence of automatic (implantable) cardiac defibrillator; Z98.42 Cataract extraction status, left eye; Z98.41 Cataract extraction status, right eye; Z90.49 Acquired absence of other specified parts of digestive tract
CPT/HCPCS: 36415; 71045; 73030; 73130; 76775; 80048; 80053; 80069; 81001; 82550; 82570; 82607; 82728; 82746; 83540; 83550; 83605; 83735; 83880; 84156; 84238; 84300; 84484; 84550; 85025; 85027; 85610; 85652; 85730; 85999; 86038; 86140; 86160; 87426; 93005; 96361; 96374; 97161; 97165; 99285; A9270; C9803; G0378; J2405; J7030; J7512

== ENCOUNTER 2021-06-03 21:02 | Emergency (ER) | payer MEDICARE, OTHER, SELFPAY ==
[2021-06-03 21:15] VITALS: BP 145/61; PULSE 90; RESP 18; TEMP 36.4; O2SAT 100
--- NOTE | 2021-06-03 23:07 | ED.EPISTAXIS ---
HPI - Epistaxis General Chief complaint: Epistaxis Stated complaint: nose bleed Time Seen by Provider: 06/03/21 22:50 History of Present Illness HPI Narrative: 80-year-old male presenting to the emergency department for evaluation of epistaxis from left nare. Patient is on Coumadin. Patient does have a prior history of epistaxis. Bleeding just started at 6 PM this evening. Patient states he was just resting. Patient does report his household is very dry. Patient did use packing to help stop the bleeding. Bleeding was controlled in the waiting room. Patient's last reported INR was 3.0. Related Data Home Medications Medication Instructions Recorded Confirmed aspirin 81 mg PO DAILY 06/08/20 06/04/21 carvedilol [Coreg] 6.25 mg PO BID 06/08/20 06/04/21 furosemide 40 mg PO DAILY 06/08/20 06/04/21 lisinopril 10 mg PO HS 06/08/20 06/04/21 simvastatin 40 mg PO HS 06/08/20 06/04/21 B12 Active 1,000 mcg PO DAILY 03/31/21 06/04/21 cholecalciferol (vitamin D3) 1,000 unit PO DAILY 03/31/21 06/04/21 [Vitamin D3] magnesium 250 mg PO DAILY 03/31/21 06/04/21 warfarin 4 mg tablet 4 mg PO QMWF 06/04/21 06/04/21 Allergies Allergy/AdvReac Type Severity Reaction Status Date / Time No Known Allergies Allergy Verified 06/04/21 14:58 Review of Systems Review of Systems: CONSTITUTIONAL: Denies fever, chills, or sweats. EYES: Denies visual changes, redness, or discharge. ENT: Epistaxis from left nostril CARDIOVASCULAR: Denies chest pain, palpitations, or edema. RESPIRATORY: Denies cough or dyspnea. GASTROINTESTINAL: Denies abdominal pain, nausea, vomiting, or diarrhea. GENITOURINARY: Denies dysuria or hematuria. SKIN: Denies rash or itching. MUSCULOSKELETAL: Denies back pain, joint pain, or myalgia. NEUROLOGIC: Denies headache, numbness, or weakness. PSYCHIATRIC: Denies anxiety or depression. [facility] Past Medical History Medical History Anemia in chronic kidney disease Atrial fibrillation Cerebral arteriosclerosis 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 CHF (congestive heart failure) Chronic kidney disease, stage IV (severe) Coronary artery disease Hyperlipidemia Hypertension Skin cancer To nose and left wrist with radiation treatments to left wrist Tobacco dependence Vitamin D deficiency Warfarin anticoagulation Surgical History Surgical History AICD (automatic cardioverter/defibrillator) present (~2005) History of appendectomy History of coronary artery stent placement With 3 stents placed in 2001 and 2002 Status post cataract extraction of both eyes with insertion of intraocular lens Family History Family History Mother Breast cancer Daughter Breast cancer Father Alcoholism Sibling Cancer Social History Social History Social History: He lives at [facility]. He is retired from the [employer] after 20 years of service. 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 He continues to smoke half a pack of cigarettes per day he started smoking at the age of 16. Primary care physician: Dr. Oneal Carrasco Code status: Full code Healthcare power of insurance defense attorney: Gonzalo (son) Smoking packs per day: 0.5 Smoking cigarettes per day: 10.0 Years smoked: 64 Smoking pack-years: 32.00 Smoking status: Current every day smoker Second hand tobacco smoke exposure: Yes Alcohol intake: current Drinks per week: 6 Substance use: never Substance use type: does not use Gender identity (if verbalized by the patient): Male Spiritual care concerns: No Exam Narrative: APPEARANCE: Well appearing, no pain in distress, well-nourish
[2021-06-03 23:30] LABS: INR 3.8; Prothrombin Time 36.5 Seconds (11.1-14.7)
[2021-06-04 00:20] VITALS: BP 145/65; PULSE 85; RESP 18; O2SAT 98
== END 2021-06-04 00:21 | disposition home or self-care (01) ==
PROVIDERS: Emergency Provider Emergency Medicine; PCP Family Medicine
DX: R04.0 Epistaxis (principal); R79.1 Abnormal coagulation profile; I48.91 Unspecified atrial fibrillation; I69.359 Hemiplegia and hemiparesis following cerebral infarction affecting unspecified side; I12.9 Hypertensive chronic kidney disease with stage 1 through stage 4 chronic kidney disease, or unspecified chronic kidney disease; N18.4 Chronic kidney disease, stage 4 (severe); E78.5 Hyperlipidemia, unspecified; F17.210 Nicotine dependence, cigarettes, uncomplicated; Z86.2 Personal history of diseases of the blood and blood-forming organs and certain disorders involving the immune mechanism; Z79.01 Long term (current) use of anticoagulants; Z79.82 Long term (current) use of aspirin; Z79.899 Other long term (current) drug therapy
CPT/HCPCS: 30901; 36415; 85610; 99283; A9270

== ENCOUNTER 2021-12-08 00:34 | Emergency (ER) | payer MEDICARE, OTHER, SELFPAY ==
--- NOTE | ~2021-12-08 | CT_ITS ---
EXAMINATION: CT brain wo con DATE: 12/08/2021 01:22 INDICATION: Fall, head injury. Left supraorbital hematoma TECHNIQUE: Computed tomography (CT) of the head was performed without intravenous contrast. The mA wa s adjusted according to patient size. Iterative reconstruction technique was employed. Exam dose: 68 1.00 mGy-cm total exam DLP. COMPARISON: None FINDINGS: Vertebral artery, basilar artery and particularly prominent bilateral carotid [employer] intern al carotid artery calcifications. Chronic left frontal encephalomalacia consistent with old infarct. Small chronic left parietal infarct high over the left parietal convexity. There is nonspecific diminished attenuation of the cerebral white matter, likely due to chronic small vessel ischemic changes. Moderately prominent central and cortical cerebral and cerebellar volume loss. No intracranial mass lesion or hemorrhage or recent cerebrovascular accident. No midline shift or mas s effect. Mild bilateral basal ganglia calcification and right brainstem calcification. No subdural or epidural hematoma. Left periorbital soft tissue swelling. No fracture or bone destruction of the cranial vault. Paranasal sinuses and mastoid air cells are normally developed and aerated. IMPRESSION: No prevertebral soft tissue swelling; no skull fracture or acute intracranial finding Chronic left frontal and high left parietal focal infarcts Cerebral atherosclerosis and chronic small vessel ischemic changes of the cerebral white matter Reviewed, dictated and finalized at [facility]. Reviewed, dictated and finalized at [facility]. IMPRESSION: No prevertebral soft tissue swelling; no skull fracture or acute i ntracranial finding Chronic left frontal and high left parietal focal infarcts Cerebral atherosclerosis and chronic small vessel ischemic changes of the cereb ral white matter
--- NOTE | ~2021-12-08 | CT_ITS ---
EXAMINATION: CT facial & cervical spine wo DATE: 12/08/2021 01:22 INDICATION: FALL. HEAD INJURY. HEMATOMA OVER LEFT EYE. TECHNIQUE: Computed tomography (CT) of the maxillofacial region and cervical spine was performed with out intravenous contrast. Automated exposure control and iterative reconstruction technique were empl oyed. The dose-length product was 417.62 mGy-cm. COMPARISON: None FINDINGS: CERVICAL: Vertebral Body Alignment: Intact. Craniocervical and atlantoaxial alignment: Moderate degenerative change. Inflammatory panus. Alignmen t intact. Osseous structures/fracture: No evidence of a lytic or blastic process in the visualized spine. No e vidence of acute fracture. Cervical soft tissues: The paraspinal soft tissues planes are maintained. Spiculated peripheral right upper lobe opacity/mass, measures at least 2.5 cm but is incompletely evaluated. Pulmonary edema. Em physematous change. Degenerative changes: Degenerative changes, without severe neural foraminal or central canal narrowin g. FACE: Soft Tissues: Left orbital soft tissue swelling. Facial bones: No acute fracture. No lytic or blastic process. Eyes: The globes are intact. The soft tissue planes of the orbits are maintained. Paranasal Sinuses: The visualized aerated spaces are clear. Foreign Bodies: No radiopaque foreign bodies. Other Findings: None. IMPRESSION: No acute fracture or traumatic malalignment in the cervical spine. No acute facial bone fracture. 2.5 cm right upper lobe opacity, further evaluation is recommended with either PET/CT, CT-guided biopsy, or follow-up chest CT in 3 months. Reviewed, dictated and finalized at [facility]. IMPRESSION: No acute fracture or traumatic malalignment in the cervical spine. No acute fac ial bone fracture. 2.5 cm right upper lobe opacity, further evaluation is recom mended with either PET/CT, CT-guided biopsy, or follow-up chest CT in 3 months.
[2021-12-08 00:48] VITALS: BP 114/43; PULSE 81; RESP 18; TEMP 36.3; O2SAT 100
--- NOTE | 2021-12-08 01:06 | PC.NURSE ---
Patient taken to CT.
--- NOTE | 2021-12-08 01:09 | ED.GENADULT ---
HPI - General Adult General Chief complaint: Fall <Moris Medina MD - Last Filed: 12/08/21 19:34> Stated complaint: fall/hematoma above left eye <Moris Medina MD - Last Filed: 12/08/21 19:34> Time Seen by Provider: 12/08/21 00:56 <Moris Medina MD - Last Filed: 12/08/21 19:34> History of Present Illness HPI narrative: 80-year-old male presenting to the emergency department after having a mechanical fall. Patient states that he stumbled causing himself to fall and strike his face on the floor. Patient denies any loss of consciousness. Patient denies any pain or injury. Patient does have a hematoma over his left eye. Patient has multiple skin tears. <Moris Medina MD - Last Filed: 12/08/21 19:34> Related Data Home medications: Home Medications Medication Instructions Recorded Confirmed aspirin 81 mg tablet 81 mg PO DAILY 06/08/20 07/16/21 carvedilol 6.25 mg tablet (Coreg) 6.25 mg PO BID 06/08/20 07/16/21 furosemide 40 mg tablet 40 mg PO DAILY 06/08/20 07/16/21 lisinopril 20 mg tablet 10 mg PO HS 06/08/20 07/16/21 simvastatin 40 mg tablet 40 mg PO HS 06/08/20 07/16/21 cholecalciferol (vitamin D3) 25 1,000 unit PO DAILY 03/31/21 07/16/21 mcg (1,000 unit) capsule (Vitamin D3) magnesium 250 mg tablet 250 mg PO DAILY 03/31/21 07/16/21 mecobalamin (vitamin B12) 1,000 1,000 mcg PO DAILY 03/31/21 07/16/21 mcg chewable tablet (B12 Active) warfarin 4 mg tablet 4 mg PO QMWF 06/04/21 07/16/21 <Moris Medina MD - Last Filed: 12/08/21 19:34> Allergies/adverse reactions: Allergies Allergy/AdvReac Type Severity Reaction Status Date / Time No Known Allergies Allergy Verified 12/08/21 00:51 <Moris Medina MD - Last Filed: 12/08/21 19:34> Review of Systems Review of Systems: CONSTITUTIONAL: Contusion over left eye EYES: Denies visual changes, redness, or discharge. ENT: Denies rhinorrhea, congestion, sore throat, or otalgia. CARDIOVASCULAR: Denies chest pain, palpitations, or edema. RESPIRATORY: Denies cough or dyspnea. GASTROINTESTINAL: Denies abdominal pain, nausea, vomiting, or diarrhea. GENITOURINARY: Denies dysuria or hematuria. SKIN: Multiple skin tears to arms and legs MUSCULOSKELETAL: Denies back pain, joint pain, or myalgia. NEUROLOGIC: Denies headache, numbness, or weakness. <Moris Medina MD - Last Filed: 12/08/21 19:34> [facility] Past Medical History Medical History: Medical History Anemia in chronic kidney disease Atrial fibrillation Cerebral arteriosclerosis 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 CHF (congestive heart failure) Chronic kidney disease, stage IV (severe) Coronary artery disease Hyperlipidemia Hypertension Skin cancer To nose and left wrist with radiation treatments to left wrist Tobacco dependence Vitamin D deficiency Warfarin anticoagulation <Moris Medina MD - Last Filed: 12/08/21 19:34> Surgical History Surgical History: Surgical History AICD (automatic cardioverter/defibrillator) present (~2005) History of appendectomy History of coronary artery stent placement With 3 stents placed in 2001 and 2002 Status post cataract extraction of both eyes with insertion of intraocular lens <Moris Medina MD - Last Filed: 12/08/21 19:34> Family History Family History: Family History Mother Breast cancer Daughter Breast cancer Father Alcoholism Sibling Cancer <Moris Medina MD - Last Filed: 12/08/21 19:34> Social History Social History: Social History Social History: He lives at [facility]. He is retired from the [employer] after 20 years of service. He then worked at a job outside of the for about
[2021-12-08 03:11] VITALS: BP 108/65; PULSE 89; RESP 17; O2SAT 100
== END 2021-12-08 04:55 ==
PROVIDERS: Emergency Provider Emergency Medicine; PCP Internal Medicine
DX: S00.83XA Contusion of other part of head, initial encounter (principal); S41.112A Laceration without foreign body of left upper arm, initial encounter; S41.111A Laceration without foreign body of right upper arm, initial encounter; S81.812A Laceration without foreign body, left lower leg, initial encounter; S81.811A Laceration without foreign body, right lower leg, initial encounter; I13.0 Hypertensive heart and chronic kidney disease with heart failure and stage 1 through stage 4 chronic kidney disease, or unspecified chronic kidney disease; N18.4 Chronic kidney disease, stage 4 (severe); I50.9 Heart failure, unspecified; D63.1 Anemia in chronic kidney disease; E78.5 Hyperlipidemia, unspecified; I48.91 Unspecified atrial fibrillation; E55.9 Vitamin D deficiency, unspecified; Z95.810 Presence of automatic (implantable) cardiac defibrillator; Z95.5 Presence of coronary angioplasty implant and graft; Z96.1 Presence of intraocular lens; Z86.73 Personal history of transient ischemic attack (TIA), and cerebral infarction without residual deficits; Z85.828 Personal history of other malignant neoplasm of skin; Z98.42 Cataract extraction status, left eye; Z98.41 Cataract extraction status, right eye; F17.210 Nicotine dependence, cigarettes, uncomplicated; Z79.01 Long term (current) use of anticoagulants; I67.2 Cerebral atherosclerosis; W01.0XXA Fall on same level from slipping, tripping and stumbling without subsequent striking against object, initial encounter
CPT/HCPCS: 70450; 70486; 72125; 99284

== ENCOUNTER 2021-12-10 15:24 | Emergency (ER) | payer MEDICARE, OTHER, SELFPAY ==
--- NOTE | ~2021-12-10 | CT_ITS ---
EXAMINATION: CT diagnostic chest wo con DATE: 12/10/2021 16:17 INDICATION: L chest swelling with bleeding eval for hematoma . Status post soft tissue biopsy in the left breast. TECHNIQUE: Computed tomography (CT) of the chest was performed without intravenous contrast. Automate d exposure control and iterative reconstruction technique were employed. The dose-length product was 268.96 mGy-cm. COMPARISON: X-ray chest 03/30/2021. FINDINGS: CHEST: Thoracic aorta: Moderate atherosclerotic calcification. Lung parenchyma and airways: 2.3 x 1.8 cm mixed solid and subsolid peripheral nodular opacity, with p leural retraction and spiculation. Emphysematous change. Airways are clear. 2 cm peripheral opacity w ith minimal pleural retraction and spiculation in the dependent left lower lung. This may represent a telectasis, scar, or a focus of infection, inflammation, or nodularity. Mild interlobular septal thic kening. Thoracic inlet, axillae and chest wall: No thyroid mass or lymphadenopathy. Gynecomastia, asymmetric and larger on the left, a satellite soft tissue nodule is present in the medial left breast. Subareol ar subcutaneous gas is present in the left breast. Mediastinum: Mediastinal lymphadenopathy. Hiatal hernia. Heart and pericardium: Mild cardiomegaly. Aortic valve calcification. Coronary artery calcifications: Heavy. Pleura: Small left pleural effusion. Upper abdomen: Cholelithiasis. Left adrenal adenoma. Thoracic bones: No acute osseous finding in the chest. IMPRESSION: 1. Asymmetric gynecomastia in the left breast, with subjacent edema/inflammation and likely adjacent medial breast lymph node. Patient is apparently on antibiotics. No significant hematoma. 2. 2 cm solid right lower lobe pulmonary nodule, 2.3 cm solid and subsolid right upper lobe pulmonary nodule. These are known and the patient is reportedly undergoing workup at an outside institution. Reviewed, dictated and finalized at location [facility]. IMPRESSION: 1. Asymmetric gynecomastia in the left breast, with subjacent edema/inflammatio n and likely adjacent medial breast lymph node. Patient is apparently on antibi otics. No significant hematoma. 2. 2 cm solid right lower lobe pulmonary nodule, 2.3 cm solid and subsolid righ t upper lobe pulmonary nodule. These are known and the patient is reportedly un dergoing workup at an outside institution.
[2021-12-10 15:26] VITALS: BP 123/49; PULSE 123; RESP 18; TEMP 36.7; O2SAT 100
[2021-12-10 15:45] VITALS: BP 130/63; PULSE 124; RESP 20; O2SAT 96
[2021-12-10 15:52] LABS: Basophils Percent Auto 0.7 % (0.2-1.2); Eosinophils Absolute Auto 0.3 K/mm3 (0-0.3); Eosinophils Percent Auto 4.9 % (0-4.4); Hematocrit 29.2 % (42.0-52.0); Hemoglobin 9.2 g/dL (14.0-18.0); Immature Granulocyte Absolute 0.03 K/mm3 (0.00-0.031); Immature Granulocyte Percent A 0.5 % (0-0.5); Lymphocytes Absolute Auto 0.74 K/mm3 (0.9-3.2); Mean Corpuscular HGB Conc 31.5 g/dl (32-36); Mean Corpuscular Hemoglobin 35.8 pg (26-34); Mean Corpuscular Volume 113.6 fl (80-100); Mean Platelet Volume 9.2 fl (7.4-10.4); Monocytes Absolute Auto 0.7 K/mm3 (0.1-0.6); Monocytes Percent Auto 12.1 % (2.6-8.5); Neutrophils Absolute Auto 3.9 K/mm3 (1.3-6.7); Neutrophils Percent Auto 68.8 % (45.5-73.1); Platelet Count Result 183 k/mm3 (150-375); Red Blood Count 2.57 M/mm3 (4.6-6.20); Red Cell Distribution Width 14.4 % (11.5-14.5); White Blood Count 5.7 K/mm3 (4.5-10.0)
--- NOTE | 2021-12-10 15:52 | ED.RECABL ---
HPI - Recheck/Abnormal Lab/Rx General Chief Complaint: Recheck/Abnormal Lab/Rx Stated Complaint: fall Time Seen by Provider: 12/10/21 15:34 Source: patient History of Present Illness HPI narrative: Patient presents with bleeding from his biopsy site. Patient john had a skin biopsy concerning for malignancy around his left areola couple weeks ago. Family reports that he had intermittent bleeding to the area since the biopsy but they have been holding his Coumadin. Today's bleeding was a lot worse The area seems more swollen, family was concerned because they could not control the bleeding at home so they came came to the ER. Patient reports pain to the area achy, constant, worse with palpation, no radiation. Related Data Home Medications Medication Instructions Recorded Confirmed aspirin 81 mg tablet 81 mg PO DAILY 06/08/20 07/16/21 carvedilol 6.25 mg tablet (Coreg) 6.25 mg PO BID 06/08/20 07/16/21 furosemide 40 mg tablet 40 mg PO DAILY 06/08/20 07/16/21 lisinopril 20 mg tablet 10 mg PO HS 06/08/20 07/16/21 simvastatin 40 mg tablet 40 mg PO HS 06/08/20 07/16/21 cholecalciferol (vitamin D3) 25 1,000 unit PO DAILY 03/31/21 07/16/21 mcg (1,000 unit) capsule (Vitamin D3) magnesium 250 mg tablet 250 mg PO DAILY 03/31/21 07/16/21 mecobalamin (vitamin B12) 1,000 1,000 mcg PO DAILY 03/31/21 07/16/21 mcg chewable tablet (B12 Active) warfarin 4 mg tablet 4 mg PO QMWF 06/04/21 07/16/21 Allergies Allergy/AdvReac Type Severity Reaction Status Date / Time No Known Allergies Allergy Verified 12/10/21 15:32 Review of Systems Review of Systems: CONSTITUTIONAL: Denies fever, chills, or sweats. EYES: Denies visual changes, redness, or discharge. ENT: Denies rhinorrhea, congestion, sore throat, or otalgia. CARDIOVASCULAR: Denies chest pain, palpitations, or edema. RESPIRATORY: Denies cough or dyspnea. GASTROINTESTINAL: Denies abdominal pain, nausea, vomiting, or diarrhea. GENITOURINARY: Denies dysuria or hematuria. SKIN: Denies rash or itching. MUSCULOSKELETAL: Denies back pain, joint pain, or myalgia. NEUROLOGIC: Denies headache, numbness, dizziness, or weakness. PSYCHIATRIC: Denies anxiety or depression. All systems reviewed & are unremarkable except as noted in HPI and below PMFSH Past Medical History Medical History Anemia in chronic kidney disease Atrial fibrillation Cerebral arteriosclerosis 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 CHF (congestive heart failure) Chronic kidney disease, stage IV (severe) Coronary artery disease Hyperlipidemia Hypertension Skin cancer To nose and left wrist with radiation treatments to left wrist Tobacco dependence Vitamin D deficiency Warfarin anticoagulation Surgical History Surgical History AICD (automatic cardioverter/defibrillator) present (~2005) History of appendectomy History of coronary artery stent placement With 3 stents placed in 2001 and 2002 Status post cataract extraction of both eyes with insertion of intraocular lens Family History Family History Mother Breast cancer Daughter Breast cancer Father Alcoholism Sibling Cancer Social History Social History Social History: He lives at [facility]. He is retired from the [employer] after 20 years of service. 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 He continues to smoke half a pack of cigarettes per day he started smoking at the age of 16. Primary care physician: Dr. Oneal Carrasco Code status: Full code Healthcare power of civil rights attorney: Gonzalo (son) Smoking packs per day: 0.5 Smoking cigarettes per day: 10.0 Years smoked: 64 [place]
[2021-12-10 16:01] LABS: Alanine Aminotransferase 16 U/L (6-50); Albumin Level 3.7 g/dL (3.5-5.1); Alkaline Phosphatase 147 U/L (38-126); Anion Gap 8 mmol/L (8-16); Aspartate Amino Transferase 32 U/L (17-59); Bilirubin,Total 0.9 mg/dL (0.2-1.3); Blood Urea Nitrogen 49 mg/dL (9-20); Calcium 8.3 mg/dL (8.4-10.2); Carbon Dioxide 21 mmol/L (22-30); Chloride 109 mmol/L (98-107); Estimated CRCL calculation 13 ml/min; Estimated Glomerular Filt Rate 17; Glucose 129 mg/dL (65-110); Potassium 4.2 mmol/L (3.4-5.0); Sodium 138 mmol/L (137-145)
[2021-12-10 16:02] LABS: INR 2.6; Prothrombin Time 26.6 Seconds (11.1-14.7)
[2021-12-10] MEDS: SODIUM CHLORIDE 0.9% IV 500 ML 999 ML IV CONT (16:37)
[2021-12-10 19:00] VITALS: BP 124/90; PULSE 92; RESP 17; O2SAT 98
== END 2021-12-10 19:03 | disposition home or self-care (01) ==
PROVIDERS: Emergency Provider Emergency Medicine; PCP Internal Medicine
DX: T81.30XA Disruption of wound, unspecified, initial encounter (principal); S22.42XA Multiple fractures of ribs, left side, initial encounter for closed fracture; R79.89 Other specified abnormal findings of blood chemistry; R91.1 Solitary pulmonary nodule; I25.10 Atherosclerotic heart disease of native coronary artery without angina pectoris; I48.91 Unspecified atrial fibrillation; I13.0 Hypertensive heart and chronic kidney disease with heart failure and stage 1 through stage 4 chronic kidney disease, or unspecified chronic kidney disease; N18.4 Chronic kidney disease, stage 4 (severe); I50.9 Heart failure, unspecified; E78.5 Hyperlipidemia, unspecified; F17.210 Nicotine dependence, cigarettes, uncomplicated; Z79.01 Long term (current) use of anticoagulants; W19.XXXA Unspecified fall, initial encounter
CPT/HCPCS: 36415; 71250; 80053; 85025; 85610; 96360; 99284; J7040

== ENCOUNTER 2021-12-27 16:51 | Emergency (ER) | payer MEDICARE, OTHER, SELFPAY ==
--- NOTE | 2021-12-27 17:00 | ED.EPISTAXIS ---
HPI - Epistaxis General Chief complaint: Epistaxis Stated complaint: bloody nose Time Seen by Provider: 12/27/21 16:55 History of Present Illness HPI Narrative: 81-year-old male presents emergency room for evaluation of epistaxis. States approximately 3 hours ago developed bleeding to his left nare. Denies any injury or trauma. Patient is on Coumadin and aspirin. States his INR was last checked 2 weeks ago and it was within normal range. He says he used to cotton balls, and that was successful and not tamponading the bleed. Related Data Home Medications Medication Instructions Recorded Confirmed aspirin 81 mg tablet 81 mg PO DAILY 06/08/20 07/16/21 carvedilol 6.25 mg tablet (Coreg) 6.25 mg PO BID 06/08/20 07/16/21 furosemide 40 mg tablet 40 mg PO DAILY 06/08/20 07/16/21 lisinopril 20 mg tablet 10 mg PO HS 06/08/20 07/16/21 simvastatin 40 mg tablet 40 mg PO HS 06/08/20 07/16/21 cholecalciferol (vitamin D3) 25 1,000 unit PO DAILY 03/31/21 07/16/21 mcg (1,000 unit) capsule (Vitamin D3) magnesium 250 mg tablet 250 mg PO DAILY 03/31/21 07/16/21 mecobalamin (vitamin B12) 1,000 1,000 mcg PO DAILY 03/31/21 07/16/21 mcg chewable tablet (B12 Active) warfarin 4 mg tablet 4 mg PO QMWF 06/04/21 07/16/21 Allergies Allergy/AdvReac Type Severity Reaction Status Date / Time No Known Allergies Allergy Verified 12/27/21 17:12 Review of Systems Review of Systems: CONSTITUTIONAL: Denies fever, chills, or sweats. EYES: Denies visual changes, redness, or discharge. ENT: Reports epistaxis CARDIOVASCULAR: Denies chest pain, palpitations, or edema. RESPIRATORY: Denies cough or dyspnea. GASTROINTESTINAL: Denies abdominal pain, nausea, vomiting, or diarrhea. GENITOURINARY: Denies dysuria or hematuria. SKIN: Denies rash or itching. MUSCULOSKELETAL: Denies back pain, joint pain, or myalgia. NEUROLOGIC: Denies headache, numbness, dizziness, or weakness. PSYCHIATRIC: Denies anxiety or depression. 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 CHF (congestive heart failure) Chronic kidney disease, stage IV (severe) Coronary artery disease Hyperlipidemia Hypertension Skin cancer To nose and left wrist with radiation treatments to left wrist Tobacco dependence Vitamin D deficiency Warfarin anticoagulation Surgical History Surgical History AICD (automatic cardioverter/defibrillator) present (~2005) History of appendectomy History of coronary artery stent placement With 3 stents placed in 2001 and 2002 Status post cataract extraction of both eyes with insertion of intraocular lens Family History Family History Mother Breast cancer Daughter Breast cancer Father Alcoholism Sibling Cancer Social History Social History Social History: He lives at [facility]. He is retired from the [employer] after 20 years of service. 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 He continues to smoke half a pack of cigarettes per day he started smoking at the age of 16. Primary care physician: Dr. Oneal Carrasco Code status: Full code Healthcare power of certified composites technician: Gonzalo (son) Smoking packs per day: 0.5 Smoking cigarettes per day: 10.0 Years smoked: 64 Smoking pack-years: 32.00 Smoking status: Current every day smoker Second hand tobacco smoke exposure: Yes Alcohol intake: current Drinks per week: 6 Substance use: never Substance use type: does not use Gender identity (if verbalized by the patient): Male Spiritual care concerns
[2021-12-27 17:17] VITALS: BP 98/38; PULSE 74; RESP 18; TEMP 36.9; O2SAT 100
== END 2021-12-27 17:49 | disposition home or self-care (01) ==
PROVIDERS: Emergency Provider Nurse Practitioner Family; PCP Internal Medicine
DX: R04.0 Epistaxis (principal); I13.0 Hypertensive heart and chronic kidney disease with heart failure and stage 1 through stage 4 chronic kidney disease, or unspecified chronic kidney disease; N18.4 Chronic kidney disease, stage 4 (severe); I50.9 Heart failure, unspecified; D63.1 Anemia in chronic kidney disease; I25.10 Atherosclerotic heart disease of native coronary artery without angina pectoris; E78.5 Hyperlipidemia, unspecified; E55.9 Vitamin D deficiency, unspecified; Z85.828 Personal history of other malignant neoplasm of skin; Z79.01 Long term (current) use of anticoagulants; Z79.82 Long term (current) use of aspirin; Z95.810 Presence of automatic (implantable) cardiac defibrillator; Z95.5 Presence of coronary angioplasty implant and graft; Z98.42 Cataract extraction status, left eye; Z98.41 Cataract extraction status, right eye; Z96.1 Presence of intraocular lens; F17.210 Nicotine dependence, cigarettes, uncomplicated
CPT/HCPCS: 99281

== ENCOUNTER 2022-01-25 19:56 | Emergency (ER) | payer MEDICARE, OTHER, SELFPAY ==
[2022-01-25 20:14] VITALS: BP 112/59; PULSE 108; RESP 18; TEMP 36.6; O2SAT 100
--- NOTE | 2022-01-25 20:35 | ED.EPISTAXIS ---
HPI - Epistaxis General Chief complaint: Epistaxis Stated complaint: nose bleed x4-6 hours Time Seen by Provider: 01/25/22 20:30 History of Present Illness HPI Narrative: 81-year-old male on Coumadin for atrial fibrillation presents emergency room for evaluation of epistaxis of his left nare. Patient states his nose has been bleeding since 230 this afternoon. Patient denies any known injury or trauma. States his INR was evaluated last week and was found to be within therapeutic range. Patient has been unable to control the bleeding since its onset. Related Data Home Medications Medication Instructions Recorded Confirmed aspirin 81 mg tablet 81 mg PO DAILY 06/08/20 07/16/21 carvedilol 6.25 mg tablet (Coreg) 6.25 mg PO BID 06/08/20 07/16/21 furosemide 40 mg tablet 40 mg PO DAILY 06/08/20 07/16/21 lisinopril 20 mg tablet 10 mg PO HS 06/08/20 07/16/21 simvastatin 40 mg tablet 40 mg PO HS 06/08/20 07/16/21 cholecalciferol (vitamin D3) 25 1,000 unit PO DAILY 03/31/21 07/16/21 mcg (1,000 unit) capsule (Vitamin D3) magnesium 250 mg tablet 250 mg PO DAILY 03/31/21 07/16/21 mecobalamin (vitamin B12) 1,000 1,000 mcg PO DAILY 03/31/21 07/16/21 mcg chewable tablet (B12 Active) warfarin 4 mg tablet 4 mg PO QMWF 06/04/21 07/16/21 Allergies Allergy/AdvReac Type Severity Reaction Status Date / Time No Known Allergies Allergy Verified 01/25/22 20:24 Review of Systems Review of Systems: CONSTITUTIONAL: Denies fever, chills, or sweats. EYES: Denies visual changes, redness, or discharge. ENT: Reports epistaxis CARDIOVASCULAR: Denies chest pain, palpitations, or edema. RESPIRATORY: Denies cough or dyspnea. GASTROINTESTINAL: Denies abdominal pain, nausea, vomiting, or diarrhea. GENITOURINARY: Denies dysuria or hematuria. SKIN: Denies rash or itching. MUSCULOSKELETAL: Denies back pain, joint pain, or myalgia. NEUROLOGIC: Denies headache, numbness, dizziness, or weakness. PSYCHIATRIC: Denies anxiety or depression. [facility] Past Medical History Medical History Anemia in chronic kidney disease Atrial fibrillation Cerebral arteriosclerosis 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 CHF (congestive heart failure) Chronic kidney disease, stage IV (severe) Coronary artery disease Hyperlipidemia Hypertension Skin cancer To nose and left wrist with radiation treatments to left wrist Tobacco dependence Vitamin D deficiency Warfarin anticoagulation Surgical History Surgical History AICD (automatic cardioverter/defibrillator) present (~2005) History of appendectomy History of coronary artery stent placement With 3 stents placed in 2001 and 2002 Status post cataract extraction of both eyes with insertion of intraocular lens Family History Family History Mother Breast cancer Daughter Breast cancer Father Alcoholism Sibling Cancer Social History Social History Social History: He lives at [facility]. He is retired from the [employer] after 20 years of service. 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 He continues to smoke half a pack of cigarettes per day he started smoking at the age of 16. Primary care physician: Dr. Oneal Carrasco Code status: Full code Healthcare power of assistant city attorney: Gonzalo (son) Smoking packs per day: 0.5 Smoking cigarettes per day: 10.0 Years smoked: 64 Smoking pack-years: 32.00 Smoking status: Current every day smoker Second hand tobacco smoke exposure: Yes Alcohol intake: current Drinks per week: 6 Substance use: never Substance use type: does not use Gender identity (if verbalized by the patient): Male
[2022-01-25 21:41] LABS: INR 2.8; Prothrombin Time 28.7 Seconds (11.1-14.7)
[2022-01-25 22:30] VITALS: BP 126/63; PULSE 120; RESP 20; O2SAT 100
== END 2022-01-25 22:30 | disposition home or self-care (01) ==
PROVIDERS: Emergency Provider Nurse Practitioner Family; PCP Internal Medicine
DX: R04.0 Epistaxis (principal); F17.210 Nicotine dependence, cigarettes, uncomplicated; I13.0 Hypertensive heart and chronic kidney disease with heart failure and stage 1 through stage 4 chronic kidney disease, or unspecified chronic kidney disease; N18.4 Chronic kidney disease, stage 4 (severe); I50.9 Heart failure, unspecified; E78.5 Hyperlipidemia, unspecified; I48.91 Unspecified atrial fibrillation; Z79.01 Long term (current) use of anticoagulants
CPT/HCPCS: 30901; 36415; 85610; 99283

== ENCOUNTER 2022-02-13 01:03 | Inpatient (IN) | payer MEDICARE, OTHER, SELFPAY ==
[2022-02-13] VITALS (9 sets, daily range): BP systolic 88–131; BP diastolic 44–82; PULSE 70–98; RESP 16–20; TEMP 36.2–36.9; O2SAT 98–100; BMI 21.9; BMI 22.1
--- NOTE | 2022-02-13 01:32 | ED.EPISTAXIS ---
HPI - Epistaxis General Chief complaint: Epistaxis Stated complaint: nose bleed Time Seen by Provider: 02/13/22 01:12 History of Present Illness HPI Narrative: Patient is an 81-year-old male who presents ER with epistaxis. Had recent epistaxis that required a Rhino Rocket and then cautery by Dr. Irizarry in office. Patient takes warfarin. Reports tonight he sneezed and he started bleeding from his left naris. Ongoing for 2 to 3 hours. Denies any sinus congestion or sore throat or cough. He is placed a cottonball in his nose to try to stop the bleeding. He is not choking on any blood. He does report having swallowed blood earlier. Related Data Home Medications Medication Instructions Recorded Confirmed aspirin 81 mg tablet 81 mg PO DAILY 06/08/20 01/26/22 carvedilol 6.25 mg tablet (Coreg) 6.25 mg PO BID 06/08/20 01/26/22 furosemide 40 mg tablet 40 mg PO DAILY 06/08/20 01/26/22 lisinopril 20 mg tablet 10 mg PO HS 06/08/20 01/26/22 simvastatin 40 mg tablet 40 mg PO HS 06/08/20 01/26/22 cholecalciferol (vitamin D3) 25 1,000 unit PO DAILY 03/31/21 01/26/22 mcg (1,000 unit) capsule (Vitamin D3) magnesium 250 mg tablet 250 mg PO DAILY 03/31/21 01/26/22 mecobalamin (vitamin B12) 1,000 1,000 mcg PO DAILY 03/31/21 01/26/22 mcg chewable tablet (B12 Active) warfarin 4 mg tablet 4 mg PO QMWF 06/04/21 01/26/22 Allergies Allergy/AdvReac Type Severity Reaction Status Date / Time No Known Allergies Allergy Verified 01/26/22 09:30 Review of Systems Constitutional: Constitutional: Denies chills and Denies fever(s) ENT: Reports epistaxis, Denies nasal congestion and Denies sore throat Respiratory: Respiratory: Denies cough and Denies dyspnea [facility] Past Medical History Medical History (Updated 01/26/22 @ 09:36 by [place] Kamara [facility]) Anemia in chronic kidney disease Atrial fibrillation Cerebral arteriosclerosis 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 CHF (congestive heart failure) Chronic kidney disease, stage IV (severe) Coronary artery disease Hyperlipidemia Hypertension Lesion of mouth Pneumothorax of right lung after biopsy Skin cancer To nose and left wrist with radiation treatments to left wrist Tobacco dependence Vitamin D deficiency Warfarin anticoagulation Surgical History Surgical History AICD (automatic cardioverter/defibrillator) present (~2005) History of appendectomy History of coronary artery stent placement With 3 stents placed in 2001 and 2002 Status post cataract extraction of both eyes with insertion of intraocular lens Family History Family History Mother Breast cancer Daughter Breast cancer Father Alcoholism Sibling Cancer Social History Social History Social History: He lives at [facility]. He is retired from the [employer] after 20 years of service. 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 He continues to smoke half a pack of cigarettes per day he started smoking at the age of 16. Primary care physician: Dr. Oneal Carrasco Code status: Full code Healthcare power of commercial real estate attorney: Gonzalo (son) Smoking packs per day: 0.5 Smoking cigarettes per day: 10.0 Years smoked: 64 Smoking pack-years: 32.00 Smoking status: Current every day smoker Second hand tobacco smoke exposure: Yes Alcohol intake: current Drinks per week: 6 Substance use: never Substance use type: does not use Gender identity (if verbalized by the patient): Male Spiritual care concerns: No Exam Narrative: GENERAL: Well-appearing, well-nourished, and in no acute distress. HEAD: Normocephalic, atraumatic. EYES: PERRL and EOMI. ENT: Clot in the left nare e
[2022-02-13] MEDS: OXYMETAZOLINE HCL 0.05% NAS 15 ML BTL (*BKC) 1 SPRAY NASAL (01:35)
[2022-02-13 01:46] LABS: Basophils Percent Auto 0.6 % (0.2-1.2); Eosinophils Absolute Auto 0.5 K/mm3 (0-0.3); Eosinophils Percent Auto 9.4 % (0-4.4); Hematocrit 24.1 % (42.0-52.0); Hemoglobin 7.5 g/dL (14.0-18.0); Immature Granulocyte Absolute 0.01 K/mm3 (0.00-0.031); Immature Granulocyte Percent A 0.2 % (0-0.5); Lymphocytes Absolute Auto 0.88 K/mm3 (0.9-3.2); Lymphocytes Percent Auto 17.6 % (18.3-44.2); Mean Corpuscular HGB Conc 31.1 g/dl (32-36); Mean Corpuscular Hemoglobin 37.1 pg (26-34); Mean Corpuscular Volume 119.3 fl (80-100); Mean Platelet Volume 9.1 fl (7.4-10.4); Monocytes Absolute Auto 0.7 K/mm3 (0.1-0.6); Monocytes Percent Auto 13.6 % (2.6-8.5); Neutrophils Absolute Auto 2.9 K/mm3 (1.3-6.7); Neutrophils Percent Auto 58.6 % (45.5-73.1); Platelet Count Result 195 k/mm3 (150-375); Red Blood Count 2.02 M/mm3 (4.6-6.20); Red Cell Distribution Width 13.7 % (11.5-14.5)
[2022-02-13 01:56] LABS: Anion Gap 10 mmol/L (8-16); Blood Urea Nitrogen 42 mg/dL (9-20); Calcium 8.2 mg/dL (8.4-10.2); Carbon Dioxide 22 mmol/L (22-30); Chloride 106 mmol/L (98-107); Estimated CRCL calculation 17 ml/min; Estimated Glomerular Filt Rate 23; Glucose 101 mg/dL (65-110); Sodium 138 mmol/L (137-145)
[2022-02-13 01:58] LABS: INR 4.8; Prothrombin Time 43.7 Seconds (11.1-14.7)
[2022-02-13 01:59] LABS: Partial Thromboplastin Time 68.3 SECONDS (22.3-36.8)
[2022-02-13 02:09] LABS: Platelet Estimate Adequate (Adequate)
[2022-02-13 02:10] LABS: Hypochromasia 1+ (NORMAL); Macrocytosis 1+ (NORMAL)
--- NOTE | 2022-02-13 02:54 | PM.IMHP ---
H&P: HPI History of Present Illness Date/Time: 02/13/22 02:54 Chief Complaint: epistaxis Narrative: This is an 81-year-old male with past medical history significant for chronic kidney disease, congestive heart failure, atrial fibrillation, coronary artery disease, tobacco dependence. Patient presents to the emergency room due to epistaxis episode patient just recently had seen the ENT doctor for this however comes tonight with recurrent epistaxis. Preliminary workup reveal an INR of 4.8, patient is chronically on Coumadin, HEMOGLOBIN WAS 7, CREATININE 2.7. Patient is been admitted for further evaluation management and treatment. Review of Systems Review of Systems: Epistaxis Constitutional: Constitutional: Denies chills, Denies fever(s), Denies malaise and Denies weakness Eyes: Eyes: Denies change in vision ENT: Denies dysphagia, Denies vertigo, Denies dizziness, Reports epistaxis and Denies odynophagia Cardiovascular: Cardiovascular: Denies chest pain, Denies syncope, Denies irregular heart rhythm, Denies lightheadedness, Denies palpitations and Denies dyspnea on exertion Respiratory: Respiratory: Denies change in phlegm color, Denies chest congestion, Denies cough, Denies excessive phlegm production, Denies pain on inspiration, Denies dyspnea and Denies dyspnea on exertion Gastrointestinal: Gastrointestinal: Denies abdominal pain, Denies dyspepsia, Denies heartburn, Denies diarrhea, Denies nausea and Denies vomiting Genitourinary: Genitourinary: Denies dysuria Musculoskeletal: Musculoskeletal: Denies back pain, Denies joint swelling and Denies muscle weakness Integumentary/Breasts: Skin/Breast: Reports unusual bruising Neurologic: Denies vertigo, Denies dizziness and Denies focal weakness Psychiatric: Psychiatric: Reports no additional psychiatric complaints and Reports as per HPI Endocrine: Endocrine: Denies cold intolerance, Denies flushing, Denies polyphagia, Denies polydipsia and Denies palpitations Hematologic/Lymphatic: Hematologic/Lymphatic: Reports no additional hematologic/lymphatic complaints and Reports as per HPI Allergic/Immunologic: Allergic/Immunologic: Reports no additional allergic/immunologic complaints and Reports as per HPI [facility] Past Medical History Medical History (Updated 02/13/22 @ 04:07 by Kandy Phelan MD) Anemia in chronic kidney disease Atrial fibrillation Cerebral arteriosclerosis 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 CHF (congestive heart failure) Chronic kidney disease, stage IV (severe) Coronary artery disease Hyperlipidemia Hypertension Lesion of mouth Pneumothorax of right lung after biopsy Skin cancer To nose and left wrist with radiation treatments to left wrist Tobacco dependence Vitamin D deficiency Warfarin anticoagulation Surgical History Surgical History AICD (automatic cardioverter/defibrillator) present (~2005) History of appendectomy History of coronary artery stent placement With 3 stents placed in 2001 and 2002 Status post cataract extraction of both eyes with insertion of intraocular lens Family History Family History Mother Breast cancer Daughter Breast cancer Father Alcoholism Sibling Cancer Social History Social History Social History: He lives at [facility]. He is retired from the [employer] after 20 years of service. 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 He continues to smoke half a pack of cigarettes per day he started smoking at the age of 16. Primary care physician: Dr. Oneal Carrasco Code status: Full code Healthcare power of poultry cleaner: Gonzalo (son) Smoking packs per day: 0.5 Smoking cigar
[2022-02-13] MEDS: SODIUM CHLORIDE 0.9% IV 500 ML 999 ML IV CONT (02:57)
--- NOTE | 2022-02-13 03:55 | ADMGEN ---
This patient, Gerry Curiel, was admitted to Medical Room 344-01. Patient/family oriented to hospital policies and general routines including ID bracelet, bed and alarms, visiting hours, pain management, procedures, bathroom and other care routines, personal items, smoking policy, room service/diet, and visiting hours. Information on how to activate the Rapid Response Team has been discussed. Patient/Family are encouraged to report perceived risks to care and to ask questions if they do not understand what they are told or what they should do.
[2022-02-13] MEDS: PHYTONADIONE 5 MG TABLET PO (04:40)
[2022-02-13] MEDS: SODIUM CHLORIDE 0.9% IV 1,000 ML 125 ML IV CONT ×2 (04:41→12:00)
[2022-02-13] MEDS: SILVERGEL (ELTA) 45 ML 1 APPLIC TOPICAL (09:55)
--- NOTE | 2022-02-13 12:24 | PM.EVENT ---
Event Note Event Note Event Note: pt admitted this am pending ENT repeat INR repeat H/H cont current care
[2022-02-13 13:30] LABS: Hematocrit 22.8 % (42.0-52.0); Hemoglobin 7.2 g/dL (14.0-18.0)
[2022-02-13 14:13] LABS: INR 4.5; Prothrombin Time 41.5 Seconds (11.1-14.7)
[2022-02-13] MEDS: SODIUM CHLORIDE 0.9% IV 1,000 ML 75 ML IV CONT ×2 (15:04→22:50)
--- NOTE | 2022-02-13 17:38 | WPDCN ---
Assessment and Plan Assessment and plan (1) Supratherapeutic INR: Code(s): R79.1 - Abnormal coagulation profile Status: Acute Assessment and Plan: Recommend correcting INR to appropriate level and monitoring frequently, recommend monitoring CBC/hemoglobin frequently given that it continues to drop 7.2 from 7.5, transfusing when appropriate. Recommend further investigation as to why the patient was so supratherapeutic. Perhaps it is education perhaps it is a dose change of his warfarin, these issues should be addressed prior to discharge. Please have the patient see me in clinic as soon as he is discharged for further treatment including endoscopy as well as removal of clot burden. Recommend nasal saline frequently every 4-6 hours and the nasal passages as well as mupirocin antibiotic ointment 2-3 times per day in the anterior nasal passages if the patient bleeds recommend Afrin too big squirts 2 times per day. Please call with any questions and/or concerns. (2) Epistaxis: Code(s): R04.0 - Epistaxis Status: Acute HPI Data of Consult Date/Time: 02/13/22 17:38 Requesting Physician: Kandy Phelan MD Primary Care Provider: Oneal CarrascoMD Consult Narrative Narrative: Gerry Curiel is a 81 year old male with a history of requiring anticoagulation. Patient was supratherapeutic above for an INR. Present with epistaxis. E R was able to control. ENT consult id as I know the patient for further evaluation treatment. 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 CHF (congestive heart failure) Chronic kidney disease, stage IV (severe) Coronary artery disease Hyperlipidemia Hypertension Lesion of mouth Pneumothorax of right lung after biopsy Skin cancer To nose and left wrist with radiation treatments to left wrist Tobacco dependence Vitamin D deficiency Warfarin anticoagulation Surgical History Surgical History AICD (automatic cardioverter/defibrillator) present (~2005) History of appendectomy History of coronary artery stent placement With 3 stents placed in 2001 and 2002 Status post cataract extraction of both eyes with insertion of intraocular lens Family History Family History Mother Breast cancer Daughter Breast cancer Father Alcoholism Sibling Cancer Social History Social History Social History: He lives at [facility]. He is retired from the [employer] after 20 years of service. 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 He continues to smoke half a pack of cigarettes per day he started smoking at the age of 16. Primary care physician: Dr. Oneal Carrasco Code status: Full code Healthcare power of employment attorney: Gonzalo (son) Smoking packs per day: 0.5 Smoking cigarettes per day: 10.0 Years smoked: 64 Smoking pack-years: 32.00 Smoking status: Current every day smoker Second hand tobacco smoke exposure: Yes Alcohol intake: current Drinks per week: 6 Substance use: never Substance use type: does not use Gender identity (if verbalized by the patient): Male Spiritual care concerns: No Meds Home Medications and Allergies Home Medications Medication Instructions Recorded Confirmed Type aspirin 81 mg tablet 81 mg PO DAILY 06/08/20 02/13/22 History carvedilol 6.25 mg tablet (Coreg) 6.25 mg PO BID 06/08/20 02/13/22 History fu
[2022-02-14] VITALS (10 sets, daily range): BP systolic 107–127; BP diastolic 51–82; PULSE 88–100; RESP 16–22; TEMP 36.4–37.2; O2SAT 96–100
[2022-02-14 07:45] LABS: Hematocrit 21.5 % (42.0-52.0); Mean Corpuscular HGB Conc 30.7 g/dl (32-36); Mean Corpuscular Hemoglobin 36.7 pg (26-34); Mean Corpuscular Volume 119.4 fl (80-100); Mean Platelet Volume 9.2 fl (7.4-10.4); Platelet Count Result 160 k/mm3 (150-375); Red Cell Distribution Width 13.7 % (11.5-14.5); White Blood Count 5.2 K/mm3 (4.5-10.0)
[2022-02-14 07:48] LABS: Hemoglobin 6.6 g/dL (14.0-18.0)
--- NOTE | 2022-02-14 07:50 | PM.IMPN ---
Progress Note: A&P Assessment and Plan (1) Epistaxis: Code(s): R04.0 - Epistaxis Status: Acute (2) Supratherapeutic INR: Code(s): R79.1 - Abnormal coagulation profile Status: Acute (3) Atrial fibrillation: Code(s): I48.91 - Unspecified atrial fibrillation Status: Acute (4) Tobacco dependence: Code(s): F17.200 - Nicotine dependence, unspecified, uncomplicated Status: Chronic (5) Renal failure: Qualifiers: Renal failure chronicity: unspecified chronicity Qualified Code(s): N19 - Unspecified kidney failure Code(s): N19 - Unspecified kidney failure Status: Acute (6) Coronary artery disease: Qualifiers: Associated angina: without angina Coronary Disease-Associated Artery/Lesion type: unspecified vessel or lesion type [place] vs. transplanted heart: [place] heart Qualified Code(s): I25.10 - Atherosclerotic heart disease of [place] coronary artery without angina pectoris Code(s): I25.10 - Atherosclerotic heart disease of [place] coronary artery without angina pectoris Status: Acute Assessment and Plan: pt admitted this am pending ENT repeat INR repeat H/H cont current care 02/14/22 1U PRBCs (no active bleeding) cont IVFs (for renal failure) Cr down trending PT /OT restart BB (labile BP) restart warfarin (INR 2.0) monitor overnight to ensure safely restarted on Warfarin anticipate dc home in am Subjective Date/time seen: 02/14/22 07:50 pt w afib needs to be back on warfarin and BB, will restart and monitor 24hrs before dc home pt agrees , requesting PT/OT Review of Systems Review of Systems: All systems reviewed & are unremarkable except as noted in HPI and below Exam Narrative: GEN: NAD, AAOx3, cooperative , frail appearing HEENT: NCAT, MMM, EOMI Neck: no JVD Heart: IRR Abd: soft, NT, ND, bowel sounds normoactive Ext: moves all, no cyanosis, no clubbing, no edema Neuro: CN intact moves all extremities equally Psych: mood and affect congruent Objective Data Vital Signs Vital Signs: Vital Signs - 24 hr 02/13/22 09:50 02/13/22 14:00 02/13/22 20:57 Temperature 98.1 F 98.5 F Pulse Rate 88 90 Respiratory Rate 20 16 Blood Pressure 108/56 L 118/82 Pulse Oximetry 100 99 Oxygen Delivery Room Air 02/13/22 20:00 02/14/22 01:00 02/14/22 05:58 Temperature 98.5 F 98.4 F Pulse Rate 90 90 98 Respiratory Rate 16 16 16 Blood Pressure 118/82 127/57 L Pulse Oximetry 99 99 99 Oxygen Delivery Room Air Intake/Output Intake/Output: Intake & Output 02/11/22 02/12/22 02/13/22 02/14/22 23:59 23:59 23:59 23:59 Intake Total 3082 Balance 3082 Meds/Results Medications: Active Medications Generic Name Dose Route Start Last Admin Trade Name Freq PRN Reason Stop Dose Admin Acetaminophen 650 mg 02/13/22 03:08 Acetaminophen 325 Mg Tablet PO Q4H PRN Mild Pain (1-3) or Fever Hydrocodone Bitart/Acetaminophen 1 tab 02/13/22 03:08 Hydrocodone/Acetaminophen (*Crx) 5-325 Mg Tablet PO Q4H PRN Pain Rated 4-6 Sodium Chloride 1,000 mls @ 75 mls/hr 02/13/22 14:19 02/13/22 22:50 Normal Saline Iv IV CONT 75 mls/hr .[id number] CALVIN Administration Sodium Chloride 250 mls @ 30 mls/hr 02/14/22 07:49 Normal Saline Iv IV CONT 02/14/22 16:08 .[id number] STA Silver Nitrate 1 applic 02/13/22 09:00 02/13/22 09:55 Silvergel (Elta) 45 Ml TOPICAL 1 applic DAILY CALVIN Administration Labs Labs: Laboratory Results - last 24 hr 02/13/22 02/13/22 02/13/22 03:04 13:19 13:19 WBC RBC Hgb 7.2 L Hct 22.8 L MCV MCH MCHC RDW Plt Count MPV PT 41.5 H INR 4.5 Crossmatch See Detail 02/14/22 07:37 WBC 5.2 RBC 1.80 L Hgb 6.6 L* Hct 21.5 L MCV 119.4 H MCH 36.7 H MCHC 30.7 L RDW 13.7 Plt Count 160 MPV 9.2 PT INR Crossmatch
[2022-02-14 07:54] LABS: Anion Gap 11 mmol/L (8-16); Blood Urea Nitrogen 44 mg/dL (9-20); Calcium 7.8 mg/dL (8.4-10.2); Carbon Dioxide 18 mmol/L (22-30); Chloride 112 mmol/L (98-107); Estimated CRCL calculation 19 ml/min; Estimated Glomerular Filt Rate 26; Glucose 95 mg/dL (65-110); Potassium 4.2 mmol/L (3.4-5.0); Sodium 141 mmol/L (137-145)
[2022-02-14] MEDS: SILVERGEL (ELTA) 45 ML 1 APPLIC TOPICAL (09:38)
[2022-02-14] MEDS: SODIUM CHLORIDE 0.9% IV 250 ML 30 ML IV CONT (09:46)
[2022-02-14 10:52] LABS: Prothrombin Time 21.6 Seconds (11.1-14.7)
--- NOTE | 2022-02-14 11:00 | PC.NURSE ---
Spoke with patients son, Gonzalo, via telephone to inform him that his father would be receiving 1 unit of blood and has signed is consent. Answered all questions and son is agreeable to plan of care.
[2022-02-14] MEDS: METOPROLOL TARTRATE 12.5 MG TABLET PO ×2 (14:39→21:16)
--- NOTE | 2022-02-14 15:31 | PCOTNOTE ---
Attempted OT evaluation. Pt. refused stating he can get therapy at [facility] when he returns home. Will continue to follow
[2022-02-14] MEDS: MUPIROCIN 2% OINT 22 GM TUBE 1 APPLIC EACH NARE (17:34)
[2022-02-14] MEDS: SALINE 0.65% NAS SOLN 44 ML BTL 1 SPRAY NASAL (17:34)
[2022-02-14] MEDS: SODIUM CHLORIDE 0.9% IV 1,000 ML 50 ML IV CONT (21:16)
[2022-02-14] MEDS: SIMVASTATIN 20 MG TABLET 40 MG PO (21:16)
[2022-02-14] MEDS: WARFARIN (*PBKC) 5 MG TABLET PO (21:16)
[2022-02-15] VITALS (7 sets, daily range): BP systolic 112–129; BP diastolic 48–61; PULSE 88–100; RESP 16–22; TEMP 35.7–37.3; O2SAT 98–100
[2022-02-15] MEDS: SALINE 0.65% NAS SOLN 44 ML BTL 1 SPRAY NASAL ×4 (00:16→17:57)
[2022-02-15 08:26] LABS: Basophils Percent Auto 0.5 % (0.2-1.2); Eosinophils Absolute Auto 0.2 K/mm3 (0-0.3); Hematocrit 24.8 % (42.0-52.0); Hemoglobin 7.7 g/dL (14.0-18.0); Immature Granulocyte Absolute 0.02 K/mm3 (0.00-0.031); Immature Granulocyte Percent A 0.4 % (0-0.5); Lymphocytes Absolute Auto 0.75 K/mm3 (0.9-3.2); Lymphocytes Percent Auto 13.6 % (18.3-44.2); Mean Corpuscular Hemoglobin 35.8 pg (26-34); Mean Corpuscular Volume 115.3 fl (80-100); Mean Platelet Volume 9.4 fl (7.4-10.4); Monocytes Absolute Auto 0.7 K/mm3 (0.1-0.6); Neutrophils Absolute Auto 3.8 K/mm3 (1.3-6.7); Neutrophils Percent Auto 68.5 % (45.5-73.1); Platelet Count Result 154 k/mm3 (150-375); Red Blood Count 2.15 M/mm3 (4.6-6.20); Red Cell Distribution Width 17.2 % (11.5-14.5); White Blood Count 5.5 K/mm3 (4.5-10.0)
[2022-02-15 08:35] LABS: INR 1.6; Prothrombin Time 18.5 Seconds (11.1-14.7)
[2022-02-15 08:39] LABS: Anion Gap 7 mmol/L (8-16); Blood Urea Nitrogen 45 mg/dL (9-20); CRP 2.6 mg/dL (<1.0); Calcium 8.3 mg/dL (8.4-10.2); Carbon Dioxide 17 mmol/L (22-30); Chloride 114 mmol/L (98-107); Estimated CRCL calculation 20 ml/min; Estimated Glomerular Filt Rate 26; Glucose 87 mg/dL (65-110); Potassium 4.5 mmol/L (3.4-5.0); Sodium 138 mmol/L (137-145)
--- NOTE | 2022-02-15 08:45 | PCPTNOTE ---
Attempted PT evaluation. Per OT, Pt. is refusing therapies stating he can get therapy at [facility] when he returns home. Will continue to follow.
[2022-02-15] MEDS: METOPROLOL TARTRATE 25 MG TABLET PO ×2 (09:50→19:47)
[2022-02-15] MEDS: MUPIROCIN 2% OINT 22 GM TUBE 1 APPLIC EACH NARE ×3 (09:51→17:58)
[2022-02-15 10:21] LABS: Macrocytosis 1+ (NORMAL); Platelet Estimate Adequate (Adequate)
[2022-02-15] MEDS: SILVERGEL (ELTA) 45 ML 1 APPLIC TOPICAL (11:23)
[2022-02-15] MEDS: ENOXAPARIN 80 MG/0.8 ML SYRINGE 70 MG SUB-Q (11:24)
--- NOTE | 2022-02-15 19:05 | PM.IMPN ---
Progress Note: A&P Assessment and Plan (1) Epistaxis: Code(s): R04.0 - Epistaxis Status: Acute (2) Supratherapeutic INR: Code(s): R79.1 - Abnormal coagulation profile Status: Acute (3) Atrial fibrillation: Code(s): I48.91 - Unspecified atrial fibrillation Status: Acute (4) Tobacco dependence: Code(s): F17.200 - Nicotine dependence, unspecified, uncomplicated Status: Chronic (5) Renal failure: Qualifiers: Renal failure chronicity: unspecified chronicity Qualified Code(s): N19 - Unspecified kidney failure Code(s): N19 - Unspecified kidney failure Status: Acute (6) Coronary artery disease: Qualifiers: Coronary Disease-Associated Artery/Lesion type: unspecified vessel or lesion type [place] vs. transplanted heart: [place] heart Associated angina: without angina Qualified Code(s): I25.10 - Atherosclerotic heart disease of [place] coronary artery without angina pectoris Code(s): I25.10 - Atherosclerotic heart disease of [place] coronary artery without angina pectoris Status: Acute Assessment and Plan: pt admitted this am pending ENT repeat INR repeat H/H cont current care 02/14/22 1U PRBCs (no active bleeding) cont IVFs (for renal failure) Cr down trending PT /OT restart BB (labile BP) restart warfarin (INR 2.0) monitor overnight to ensure safely restarted on Warfarin anticipate dc home in am 02/15/22 INR now subtherapeutic Warfarin restarted last night LMWH for bridge while inpt daily INR Metoprolol 25mg PO BID monitor HR may need to increase BB spoke w son, pt may benefit from short SNF stay at his independent living facility will follow up w PT tomorrow anticipate dc tomorrow Subjective Date/time seen: 02/15/22 19:05 pt doing better up w PT today but still weak, BP tolerating BB today but may need increase depending Review of Systems Review of Systems: All systems reviewed & are unremarkable except as noted in HPI and below Exam Narrative: GEN: NAD, AAOx3, cooperative , frail appearing HEENT: NCAT, MMM, EOMI Neck: no JVD Heart: IRR Abd: soft, NT, ND, bowel sounds normoactive Ext: moves all, no cyanosis, no clubbing, no edema Neuro: CN intact moves all extremities equally Psych: mood and affect congruent Objective Data Vital Signs Vital Signs: Vital Signs - 24 hr 02/14/22 20:03 02/14/22 20:00 02/14/22 21:16 Temperature 98.3 F Pulse Rate 98 98 Respiratory Rate 22 H Blood Pressure 117/65 Pulse Oximetry 99 Oxygen Delivery Room Air 02/15/22 05:50 02/15/22 09:50 02/15/22 11:20 Temperature 97.5 F L Pulse Rate 100 98 Respiratory Rate 22 H Blood Pressure 122/57 L Pulse Oximetry 98 Oxygen Delivery Room Air 02/15/22 13:13 02/15/22 17:51 Temperature 96.2 F L 97.3 F L Pulse Rate 88 97 Respiratory Rate 16 18 Blood Pressure 112/48 L 120/56 L Pulse Oximetry 100 100 Oxygen Delivery Intake/Output Intake/Output: Intake & Output 02/12/22 02/13/22 02/14/22 02/15/22 23:59 23:59 23:59 23:59 Intake Total 3082 1070 720 Output Total 850 300 Balance 3082 220 420 Meds/Results Medications: Active Medications Generic Name Dose Route Start Last Admin Trade Name Freq PRN Reason Stop Dose Admin Acetaminophen 650 mg 02/13/22 03:08 Acetaminophen 325 Mg Tablet PO Q4H PRN Mild Pain (1-3) or Fever Hydrocodone Bitart/Acetaminophen 1 tab 02/13/22 03:08 Hydrocodone/Acetaminophen (*Crx) 5-325 Mg Tablet PO Q4H PRN Pain Rated 4-6 Enoxaparin Sodium 70 mg 02/15/22 11:00 02/15/22 11:24 Enoxaparin 80 Mg/0.8 Ml Syringe SUB-Q 70 mg DAILY CALVIN Administration Sodium Chloride 1,000 mls @ 50 mls/hr 02/14/22 18:40 02/15/22 10:00 Normal Saline Iv IV CONT 0 mls/hr .Q20H CALVIN Infusion Metoprolol Tartrate 25 mg 02/15/22 09:00 02/15/22 09:50 Metoprolol Tartrate 25 Mg Tablet PO 25 mg Q12HR CALVIN A
[2022-02-15] MEDS: SIMVASTATIN 20 MG TABLET 40 MG PO (19:46)
[2022-02-15] MEDS: WARFARIN (*PBKC) 5 MG TABLET PO (19:47)
[2022-02-16] VITALS (8 sets, daily range): BP systolic 106–125; BP diastolic 44–85; PULSE 75–110; RESP 18–22; TEMP 36.2–37.1; O2SAT 92–99
[2022-02-16 05:22] LABS: Basophils Percent Auto 0.7 % (0.2-1.2); Eosinophils Absolute Auto 0.2 K/mm3 (0-0.3); Eosinophils Percent Auto 3.9 % (0-4.4); Hematocrit 23.9 % (42.0-52.0); Hemoglobin 7.5 g/dL (14.0-18.0); Immature Granulocyte Absolute 0.03 K/mm3 (0.00-0.031); Immature Granulocyte Percent A 0.5 % (0-0.5); Mean Corpuscular HGB Conc 31.4 g/dl (32-36); Mean Corpuscular Hemoglobin 36.2 pg (26-34); Mean Corpuscular Volume 115.5 fl (80-100); Mean Platelet Volume 9.5 fl (7.4-10.4); Monocytes Absolute Auto 0.7 K/mm3 (0.1-0.6); Monocytes Percent Auto 11.4 % (2.6-8.5); Neutrophils Percent Auto 69.5 % (45.5-73.1); Nucleated Red Blood Cells Perc 0.4 % (0.0-0.2); Platelet Count Result 155 k/mm3 (150-375); Red Blood Count 2.07 M/mm3 (4.6-6.20); Red Cell Distribution Width 16.4 % (11.5-14.5); White Blood Count 5.7 K/mm3 (4.5-10.0)
[2022-02-16 05:33] LABS: INR 1.5; Prothrombin Time 17.3 Seconds (11.1-14.7)
[2022-02-16 05:36] LABS: Anion Gap 6 mmol/L (8-16); Blood Urea Nitrogen 45 mg/dL (9-20); Carbon Dioxide 18 mmol/L (22-30); Chloride 115 mmol/L (98-107); Estimated CRCL calculation 18 ml/min; Estimated Glomerular Filt Rate 24; Glucose 90 mg/dL (65-110); Magnesium 2.3 mg/dL (1.6-2.3); Phosphorus 3.1 mg/dL (2.5-4.5); Potassium 4.7 mmol/L (3.4-5.0); Sodium 139 mmol/L (137-145)
[2022-02-16 07:22] LABS: Hypochromasia 1+ (NORMAL); Macrocytosis 1+ (NORMAL); Platelet Estimate Adequate (Adequate)
[2022-02-16] MEDS: METOPROLOL TARTRATE 25 MG TABLET PO ×2 (09:29→20:06)
[2022-02-16] MEDS: MUPIROCIN 2% OINT 22 GM TUBE 1 APPLIC EACH NARE ×3 (09:34→16:58)
[2022-02-16] MEDS: SILVERGEL (ELTA) 45 ML 1 APPLIC TOPICAL (09:34)
[2022-02-16] MEDS: ENOXAPARIN 80 MG/0.8 ML SYRINGE 70 MG SUB-Q (09:34)
[2022-02-16] MEDS: FUROSEMIDE INJ 40 MG/4 ML VIAL 20 MG IV PUSH (11:31)
[2022-02-16] MEDS: SALINE 0.65% NAS SOLN 44 ML BTL 1 SPRAY NASAL ×3 (11:31→23:19)
[2022-02-16 13:04] LABS: SARS-CoV-2 RNA PCR Negative
--- NOTE | 2022-02-16 17:24 | PM.IMPN ---
Progress Note: A&P Assessment and Plan (1) Epistaxis: Code(s): R04.0 - Epistaxis Status: Acute (2) Supratherapeutic INR: Code(s): R79.1 - Abnormal coagulation profile Status: Acute (3) Atrial fibrillation: Code(s): I48.91 - Unspecified atrial fibrillation Status: Acute (4) Tobacco dependence: Code(s): F17.200 - Nicotine dependence, unspecified, uncomplicated Status: Chronic (5) Renal failure: Qualifiers: Renal failure chronicity: unspecified chronicity Qualified Code(s): N19 - Unspecified kidney failure Code(s): N19 - Unspecified kidney failure Status: Acute (6) Coronary artery disease: Qualifiers: Coronary Disease-Associated Artery/Lesion type: unspecified vessel or lesion type [place] vs. transplanted heart: [place] heart Associated angina: without angina Qualified Code(s): I25.10 - Atherosclerotic heart disease of [place] coronary artery without angina pectoris Code(s): I25.10 - Atherosclerotic heart disease of [place] coronary artery without angina pectoris Status: Acute Assessment and Plan: pt admitted this am pending ENT repeat INR repeat H/H cont current care 02/14/22 1U PRBCs (no active bleeding) cont IVFs (for renal failure) Cr down trending PT /OT restart BB (labile BP) restart warfarin (INR 2.0) monitor overnight to ensure safely restarted on Warfarin anticipate dc home in am 02/15/22 INR now subtherapeutic Warfarin restarted last night LMWH for bridge while inpt daily INR Metoprolol 25mg PO BID monitor HR may need to increase BB spoke w son, pt may benefit from short SNF stay at his independent living facility will follow up w PT tomorrow anticipate dc tomorrow 02/16/22 cont LMWH bridge to therapeutic INR cont Warfarin daily INR goal 2-3 tolerating BB unfortunately pt does not qualify for SNF home w [facility] possibly tomorrow Subjective Date/time seen: 02/16/22 17:24 able to ambulate in [place] with me will go home alone w [facility], will bridge warfarin and cont to monitor pt overnight Exam Narrative: GEN: NAD, AAOx3, cooperative , frail appearing HEENT: NCAT, MMM, EOMI Neck: no JVD Heart: IRR Abd: soft, NT, ND, bowel sounds normoactive Ext: moves all, no cyanosis, no clubbing, no edema Neuro: CN intact moves all extremities equally Psych: mood and affect congruent Objective Data Vital Signs Vital Signs: Vital Signs - 24 hr 02/15/22 17:51 02/15/22 19:31 02/15/22 19:47 Temperature 97.3 F L 99.1 F Pulse Rate 97 98 88 Respiratory Rate 18 22 H Blood Pressure 120/56 L 129/61 Pulse Oximetry 100 98 Oxygen Delivery 02/15/22 20:00 02/16/22 05:01 02/16/22 07:43 Temperature 98.8 F Pulse Rate 88 97 Respiratory Rate 22 H 22 H Blood Pressure 111/85 Pulse Oximetry 98 95 Oxygen Delivery Room Air Room Air 02/16/22 09:29 02/16/22 12:38 02/16/22 14:00 Temperature 97.6 F 97.6 F Pulse Rate 96 94 75 Respiratory Rate 18 20 Blood Pressure 106/59 L 119/63 Pulse Oximetry 99 99 Oxygen Delivery 02/16/22 14:06 02/16/22 14:58 02/16/22 14:58 Temperature Pulse Rate Respiratory Rate Blood Pressure 113/56 L 119/63 125/56 L Pulse Oximetry Oxygen Delivery Intake/Output Intake/Output: Intake & Output 02/13/22 02/14/22 02/15/22 02/16/22 23:59 23:59 23:59 23:59 Intake Total 3082 1070 720 702 Output Total 850 550 700 Balance 3082 220 170 2 Meds/Results Medications: Active Medications Generic Name Dose Route Start Last Admin Trade Name [place] PRN Reason Stop Dose Admin Acetaminophen 650 mg 02/13/22 03:08 Acetaminophen 325 Mg Tablet PO Q4H PRN Mild Pain (1-3) or Fever Hydrocodone Bitart/Acetaminophen 1 tab 02/13/22 03:08 Hydrocodone/Acetaminophen (*Crx) 5-325 Mg Tablet PO Q4H PRN Pain Rated 4-6 Albuterol 2.5 mg 02/16/22 14:00 Albuterol Sulfate Neb 2.5 Mg/3 Ml Inh INHALATION
[2022-02-16] MEDS: SIMVASTATIN 20 MG TABLET 40 MG PO (20:06)
[2022-02-16] MEDS: WARFARIN (*PBKC) 5 MG TABLET PO (20:07)
[2022-02-17] MEDS: SALINE 0.65% NAS SOLN 44 ML BTL 1 SPRAY NASAL ×2 (05:00→16:19)
[2022-02-17 06:00] VITALS: BP 168/55; PULSE 89; RESP 18; TEMP 36.7; O2SAT 95
[2022-02-17 08:00] VITALS: O2SAT 95
[2022-02-17 08:10] VITALS: PULSE 87
[2022-02-17] MEDS: METOPROLOL TARTRATE 25 MG TABLET PO (08:10)
[2022-02-17] MEDS: MUPIROCIN 2% OINT 22 GM TUBE 1 APPLIC EACH NARE ×3 (08:11→16:22)
[2022-02-17] MEDS: SILVERGEL (ELTA) 45 ML 1 APPLIC TOPICAL (08:11)
[2022-02-17] MEDS: ENOXAPARIN 80 MG/0.8 ML SYRINGE 70 MG SUB-Q (08:12)
[2022-02-17 11:30] LABS: Basophils Percent Auto 0.7 % (0.2-1.2); Eosinophils Absolute Auto 0.3 K/mm3 (0-0.3); Eosinophils Percent Auto 5.8 % (0-4.4); Hematocrit 25.5 % (42.0-52.0); Hemoglobin 7.8 g/dL (14.0-18.0); Immature Granulocyte Absolute 0.02 K/mm3 (0.00-0.031); Immature Granulocyte Percent A 0.4 % (0-0.5); Lymphocytes Absolute Auto 0.48 K/mm3 (0.9-3.2); Lymphocytes Percent Auto 8.7 % (18.3-44.2); Mean Corpuscular HGB Conc 30.6 g/dl (32-36); Mean Corpuscular Hemoglobin 35.9 pg (26-34); Mean Corpuscular Volume 117.5 fl (80-100); Mean Platelet Volume 9.8 fl (7.4-10.4); Monocytes Absolute Auto 0.6 K/mm3 (0.1-0.6); Monocytes Percent Auto 11.4 % (2.6-8.5); Nucleated Red Blood Cells Perc 0.5 % (0.0-0.2); Platelet Count Result 171 k/mm3 (150-375); Red Blood Count 2.17 M/mm3 (4.6-6.20); Red Cell Distribution Width 16.5 % (11.5-14.5); White Blood Count 5.5 K/mm3 (4.5-10.0)
[2022-02-17 11:35] LABS: Alanine Aminotransferase 23 U/L (6-50); Albumin Level 2.9 g/dL (3.5-5.1); Alkaline Phosphatase 156 U/L (38-126); Anion Gap 8 mmol/L (8-16); Aspartate Amino Transferase 32 U/L (17-59); Bilirubin,Total 1.4 mg/dL (0.2-1.3); Blood Urea Nitrogen 43 mg/dL (9-20); Carbon Dioxide 20 mmol/L (22-30); Chloride 113 mmol/L (98-107); Estimated CRCL calculation 18 ml/min; Estimated Glomerular Filt Rate 24; Glucose 156 mg/dL (65-110); INR 1.7; Magnesium 2.4 mg/dL (1.6-2.3); Prothrombin Time 19.3 Seconds (11.1-14.7); Sodium 141 mmol/L (137-145)
[2022-02-17 11:56] LABS: Anisocytosis 2+ (NORMAL); Hypochromasia 2+ (NORMAL); Macrocytosis 1+ (NORMAL); Platelet Estimate Adequate (Adequate)
[2022-02-17 13:00] VITALS: BP 122/56; PULSE 95; RESP 18; TEMP 36.4; O2SAT 98
--- NOTE | 2022-02-17 15:02 | PM.DS ---
DS: Admitting Diagnosis Discharge Date 02/17/22 Admitting Diagnosis (1) Epistaxis: ?Code(s): R04.0 - Epistaxis ?Status:?Acute ? ? ? (2) Supratherapeutic INR: ?Code(s): R79.1 - Abnormal coagulation profile ?Status:?Acute ? ? ? (3) Atrial fibrillation: ?Code(s): I48.91 - Unspecified atrial fibrillation ? ? (4) Tobacco dependence: ?Code(s): F17.200 - Nicotine dependence, unspecified, uncomplicated ? (5) Renal failure: ?Qualifiers: ?Renal failure chronicity:?unspecified chronicity? Qualified Code(s):?N19 - Unspecified kidney failure ?Code(s): N19 - Unspecified kidney failure ? (6) Coronary artery disease: ?Qualifiers: ?Coronary Disease-Associated Artery/Lesion type:?unspecified vessel or lesion type??[place] vs. transplanted heart:?[place] heart??Associated angina:?without angina? Qualified Code(s):?I25.10 - Atherosclerotic heart disease of [place] coronary artery without angina pectoris ? DS: Discharge Diagnosis Discharge Diagnosis (1) Epistaxis: Code(s): R04.0 - Epistaxis Status: Acute (2) Supratherapeutic INR: Code(s): R79.1 - Abnormal coagulation profile Status: Acute (3) Atrial fibrillation: Code(s): I48.91 - Unspecified atrial fibrillation Status: Acute (4) Tobacco dependence: Code(s): F17.200 - Nicotine dependence, unspecified, uncomplicated Status: Chronic (5) Renal failure: Qualifiers: Renal failure chronicity: unspecified chronicity Qualified Code(s): N19 - Unspecified kidney failure Code(s): N19 - Unspecified kidney failure Status: Acute (6) Coronary artery disease: Qualifiers: Coronary Disease-Associated Artery/Lesion type: unspecified vessel or lesion type [place] vs. transplanted heart: [place] heart Associated angina: without angina Qualified Code(s): I25.10 - Atherosclerotic heart disease of [place] coronary artery without angina pectoris Code(s): I25.10 - Atherosclerotic heart disease of [place] coronary artery without angina pectoris Status: Acute DS: Summary Hospital Course Reason for hospitalization: ?epistaxis Narrative: ?This is an 81-year-old male with past medical history significant for chronic kidney disease, congestive heart failure, atrial fibrillation, coronary artery disease, tobacco dependence.? Patient presents to the emergency room due to epistaxis episode patient just recently had? seen the ENT doctor for this however comes tonight with recurrent epistaxis.? Preliminary workup reveal an INR of 4.8, patient is chronically on Coumadin, HEMOGLOBIN WAS 7, CREATININE 2.7.? Patient is been admitted for further evaluation management and treatment. Hospital Course: pt admitted this am pending ENT repeat INR repeat H/H cont current care 02/14/22 1U PRBCs (no active bleeding) cont IVFs (for renal failure) Cr down trending PT /OT restart BB (labile BP) restart warfarin (INR 2.0) monitor overnight to ensure safely restarted on Warfarin anticipate dc home in am 02/15/22 INR now subtherapeutic Warfarin restarted last night LMWH for bridge while inpt daily INR Metoprolol 25mg PO BID monitor HR may need to increase BB spoke w son, pt may benefit from short SNF stay at his independent living facility will follow up w PT tomorrow anticipate dc tomorrow 02/16/22 cont LMWH bridge to therapeutic INR cont Warfarin daily INR goal 2-3 tolerating BB unfortunately pt does not qualify for SNF home w [facility] possibly tomorrow 02/17/22 pt stable on BB w good BP and HR control INR 1.7 anticipate this pm dose will bring pt into therapeutic range dc home w [facility] in stable condition I have personally ambulated w pt in the [place]. He is slow but appears safe and is aware of fall risk mitigation techniques Gerry does express to me his ongoing flores w cancer and that he feels tired. He has spoken with his children, and they are aware of his feelings
== END 2022-02-17 17:45 | disposition home health service (06) | DRG 151 ==
LOC: ANHED 03:16 → ANH3MED 03:23
PROVIDERS: Admitting Provider Internal Medicine; Emergency Provider Emergency Medicine; PCP Internal Medicine; Visit Provider Hospitalist
DX: R04.0 Epistaxis (principal); I13.0 Hypertensive heart and chronic kidney disease with heart failure and stage 1 through stage 4 chronic kidney disease, or unspecified chronic kidney disease; N18.4 Chronic kidney disease, stage 4 (severe); I50.9 Heart failure, unspecified; D63.1 Anemia in chronic kidney disease; R79.1 Abnormal coagulation profile; C44.301 Unspecified malignant neoplasm of skin of nose; C44.609 Unspecified malignant neoplasm of skin of left upper limb, including shoulder; I25.10 Atherosclerotic heart disease of native coronary artery without angina pectoris; I48.91 Unspecified atrial fibrillation; I67.2 Cerebral atherosclerosis; F17.210 Nicotine dependence, cigarettes, uncomplicated; E55.9 Vitamin D deficiency, unspecified; E78.5 Hyperlipidemia, unspecified; Z20.822 Contact with and (suspected) exposure to COVID-19; Z79.01 Long term (current) use of anticoagulants; Z79.82 Long term (current) use of aspirin; Z79.899 Other long term (current) drug therapy; Z86.73 Personal history of transient ischemic attack (TIA), and cerebral infarction without residual deficits; Z95.5 Presence of coronary angioplasty implant and graft; Z95.810 Presence of automatic (implantable) cardiac defibrillator; Z98.42 Cataract extraction status, left eye; Z98.41 Cataract extraction status, right eye; Z96.1 Presence of intraocular lens
CPT/HCPCS: 36415; 36430; 80048; 80053; 83735; 84100; 85014; 85018; 85025; 85027; 85610; 85730; 86140; 86850; 86900; 86901; 86920; 96361; 96372; 96374; 97110; 97161; 97165; 97530; 97535; 99285; A9270; C9803; G0378; J1650; J1940; J7030; J7040; J7050; P9016; U0003; U0005

== ENCOUNTER 2022-02-23 12:18 | Outpatient (NON) | payer MEDICARE, OTHER, SELFPAY ==
[2022-02-23 13:09] LABS: Prothrombin Time 21.6 Seconds (11.1-14.7)
== END 2022-02-23 12:19 | disposition home or self-care (01) ==
LOC: HOME HLTH 12:22
PROVIDERS: PCP Internal Medicine; Visit Provider Internal Medicine
DX: I48.91 Unspecified atrial fibrillation (principal); D68.32 Hemorrhagic disorder due to extrinsic circulating anticoagulants; I25.10 Atherosclerotic heart disease of native coronary artery without angina pectoris; T45.515D Adverse effect of anticoagulants, subsequent encounter
CPT/HCPCS: 85610

== ENCOUNTER 2022-03-03 10:24 | Outpatient (NON) | payer MEDICARE, OTHER, SELFPAY ==
[2022-03-03 11:14] LABS: INR 2.6; Prothrombin Time 27.1 Seconds (11.1-14.7)
== END 2022-03-03 10:25 | disposition home or self-care (01) ==
PROVIDERS: PCP Internal Medicine; Visit Provider Internal Medicine
DX: I48.91 Unspecified atrial fibrillation (principal); D68.32 Hemorrhagic disorder due to extrinsic circulating anticoagulants; I25.10 Atherosclerotic heart disease of native coronary artery without angina pectoris; T45.515D Adverse effect of anticoagulants, subsequent encounter
CPT/HCPCS: 85610

== ENCOUNTER 2022-03-22 13:10 | Emergency (ER) | payer MEDICARE, OTHER, SELFPAY ==
[2022-03-22 13:42] VITALS: BP 116/94; PULSE 115; RESP 16; TEMP 37.2; O2SAT 100
--- NOTE | 2022-03-22 16:18 | ED.WOUNDLAC ---
HPI - Wound/Laceration General Chief Complaint: Wound/Laceration <CHIKA Paz Last Filed: 03/22/22 19:04> Stated Complaint: Fall Thurs, left Arm abrasion <Elaina Bazan PA-C - Last Filed: 03/22/22 19:04> Time Seen by Provider: 03/22/22 15:21 <CHIKA Paz Last Filed: 03/22/22 19:04> Source: patient and family <CHIKA Paz Last Filed: 03/22/22 19:04> Mode of arrival: ambulatory <CHIKA Paz Last Filed: 03/22/22 19:04> Limitations: no limitations <CHIKA Paz Last Filed: 03/22/22 19:04> History of Present Illness HPI narrative: Patient is an 81 y/o male who presents to the ED with c/o skin tear to his left forearm. Patient reports he accidentally hit against a brick wall on and sustained a skin tear to his left forearm. His son has been changing the bandages daily, but does report frequent rebleeding with changing bandages. No bleeding upon my evaluation, but patient with very fragile skin, several scabs diffusely. Patient is on Warfarin due to his hx of afib. Denies any significant pain or other injuries. Denies HI, LOC, numbness. <CHIKA Paz Last Filed: 03/22/22 19:04> Related Data Home Medications: Home Medications Medication Instructions Recorded Confirmed aspirin 81 mg tablet 81 mg PO DAILY 06/08/20 02/13/22 simvastatin 40 mg tablet 40 mg PO HS 06/08/20 02/13/22 cholecalciferol (vitamin D3) 25 1,000 unit PO DAILY 03/31/21 02/13/22 mcg (1,000 unit) capsule (Vitamin D3) magnesium 250 mg tablet 250 mg PO DAILY 03/31/21 02/13/22 mecobalamin (vitamin B12) 1,000 1,000 mcg PO DAILY 03/31/21 02/13/22 mcg chewable tablet (B12 Active) ferrous sulfate 324 mg (65 mg 324 mg PO DAILY 02/13/22 02/13/22 iron) tablet,delayed release mupirocin 2 % topical ointment 1 applic topical DAILY 02/13/22 02/13/22 warfarin 3 mg tablet 5 mg PO HS 02/13/22 02/13/22 <Elaina Bazan PA-C - Last Filed: 03/22/22 19:04> Allergies/Adverse Reactions: Allergies Allergy/AdvReac Type Severity Reaction Status Date / Time No Known Allergies Allergy Verified 03/22/22 15:16 <Elaina Bazan PA-C - Last Filed: 03/22/22 19:04> Review of Systems Review of Systems: CONSTITUTIONAL: Denies fever, chills, or sweats. SKIN: Reports skin to left forearm. MUSCULOSKELETAL: Denies arm pain. NEUROLOGICAL: Denies HI, LOC, focal weakness. <Elaina Bazan PA-C - Last Filed: 03/22/22 19:04> All systems reviewed & are unremarkable except as noted in HPI and below <Elaina Bazan PA-C - Last Filed: 03/22/22 19:04> [facility] Past Medical History Medical History: Medical History Anemia in chronic kidney disease Atrial fibrillation Cerebral arteriosclerosis 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 CHF (congestive heart failure) Chronic kidney disease, stage IV (severe) Coronary artery disease Hyperlipidemia Hypertension Lesion of mouth Pneumothorax of right lung after biopsy Skin cancer To nose and left wrist with radiation treatments to left wrist Tobacco dependence Vitamin D deficiency Warfarin anticoagulation <Elaina Bazan PA-C - Last Filed: 03/22/22 19:04> Surgical History Surgical History: Surgical History AICD (automatic cardioverter/defibrillator) present (~2005) History of appendectomy History of coronary artery stent placement With 3 stents placed in 2001 and 2002 Status post cataract extraction of both eyes with insertion of intraocular lens <Elaina Bazan PA-C - Last Filed: 03/22/22 19:04> Family History Family History: Family History Mother Breast cancer Daughter Breast cancer Father Alcoholism S
== END 2022-03-22 17:54 | disposition home or self-care (01) ==
PROVIDERS: Emergency Provider Emergency Medicine; PCP Internal Medicine
DX: S51.812A Laceration without foreign body of left forearm, initial encounter (principal); I13.0 Hypertensive heart and chronic kidney disease with heart failure and stage 1 through stage 4 chronic kidney disease, or unspecified chronic kidney disease; N18.4 Chronic kidney disease, stage 4 (severe); I50.9 Heart failure, unspecified; D63.1 Anemia in chronic kidney disease; I48.91 Unspecified atrial fibrillation; I25.10 Atherosclerotic heart disease of native coronary artery without angina pectoris; E78.5 Hyperlipidemia, unspecified; E55.9 Vitamin D deficiency, unspecified; Z85.828 Personal history of other malignant neoplasm of skin; Z79.01 Long term (current) use of anticoagulants; Z79.82 Long term (current) use of aspirin; Z95.810 Presence of automatic (implantable) cardiac defibrillator; Z95.5 Presence of coronary angioplasty implant and graft; Z98.42 Cataract extraction status, left eye; Z98.41 Cataract extraction status, right eye; Z96.1 Presence of intraocular lens; F17.210 Nicotine dependence, cigarettes, uncomplicated; W22.01XA Walked into wall, initial encounter
CPT/HCPCS: 99282

== ENCOUNTER 2022-06-11 06:14 | Inpatient (IN) | payer MEDICARE, OTHER, SELFPAY ==
[2022-06-11] VITALS (75 sets, daily range): BP systolic 90–131; BP diastolic 46–67; PULSE 102–115; RESP 15–32; TEMP 36–36.5; O2SAT 91–97; BMI 21.0
--- NOTE | ~2022-06-11 | US_ITS ---
EXAMINATION: US renal BI DATE: 06/14/2022 20:53 INDICATION: MANJIT on CKD TECHNIQUE: Multiple grayscale and Doppler ultrasound images of the kidneys were obtained. COMPARISON: 04/01/2021 FINDINGS: The right kidney measures 8.7 x 5.0 x 3.9 cm. The left kidney measures 9.4 x 5.0 x 3.6 cm. The kidney s demonstrate increased parenchymal echogenicity. 8 mm exophytic right midpole simple cyst. There is no hydronephrosis. The bladder is normal. IMPRESSION: Sonographic findings consistent with medical renal disease. Reviewed, dictated and finalized at location K. L VALET ATTENDANT
--- NOTE | ~2022-06-11 | CT_ITS ---
EXAMINATION:CT diagnostic chest wo con DATE: 06/12/2022 15:14 INDICATION: Right pleural effusion. TECHNIQUE: Computed tomography (CT) of the chest was performed without intravenous contrast. Automate d exposure control and iterative reconstruction technique were employed. The dose-length product (DLP ) was 232.60 mGy-cm. COMPARISON: Chest CT 12/10/2021 FINDINGS: There are large right and small left pleural effusions. There is moderate emphysema. There is smooth septal thickening in the lungs bilaterally. There is a 2.1 cm nodule in right lung upper lo be. There are airspace opacities in lingula. There are airspace opacities in right lung with a depend ent predominance. Cardiomegaly is noted. There are coronary artery calcifications. The calcifications aortic valve. No pericardial effusion. There is a left chest wall pacer with leads in the right atri um and right ventricle. There is bilateral gynecomastia. Calcifications in the liver and spleen are c onsistent with old granulomatous disease. There are gallstones in the gallbladder, which is normal in size. There is mild chronic height loss of multiple vertebral bodies. There is moderate thoracic spo ndylosis. IMPRESSION: 1. Large right and small left pleural effusions. 2. Diffuse lung disease, likely a combination of pulmonary edema and pneumonia. 3. 2.1 cm nodule in right lung upper lobe, which may be primary bronchogenic carcinoma. Correlate wit h lung cancer biopsy and treatment history. 4. Moderate emphysema. Reviewed, dictated and finalized at location A. PICKER IMPRESSION: 1. Large right and small left pleural effusions. 2. Diffuse lung disease, likely a combination of pulmonary edema and pneumonia. 3. 2.1 cm nodule in right lung upper lobe, which may be primary bronchogenic ca rcinoma. Correlate with lung cancer biopsy and treatment history. 4. Moderate emphysema.
--- NOTE | ~2022-06-11 | XR_ITS ---
EXAMINATION: XR chest 1V portable INDICATION: Right pleural effusion TECHNIQUE: Portable AP chest at 0955 hours COMPARISON: 06/12/2022 FINDINGS: There is a moderate size right pleural effusion. Right basilar airspace opacities persist w ithout significant change. Cardiomegaly is noted. A dual-lead cardiac pacemaker of the left chest wal l ends with leads in expected locations. There is a mild diffuse interstitial pattern. There is no pn eumothorax. Chronic rotator cuff tears are suspected. IMPRESSION: 1. Moderate-sized right pleural effusion. 2. Cardiomegaly with mild pulmonary edema. 3. Right basilar airspace opacities, consistent with atelectasis versus pneumonia. Reviewed, dictated and finalized at location B. RAL SUPPLY MANAGER IMPRESSION: 1. Moderate-sized right pleural effusion. 2. Cardiomegaly with mild pulmonary edema. 3. Right basilar airspace opacities, consistent with atelectasis versus pneumon ia.
--- NOTE | ~2022-06-11 | US_ITS ---
EXAMINATION: US venous doppler [facility] DATE: 06/13/2022 14:31 INDICATION: DVT . TECHNIQUE: Grayscale images without and with compression and Doppler images of the bilateral lower ex tremity veins were obtained. COMPARISON: None FINDINGS: The right common femoral vein, profunda (deep) femoral vein, femoral vein, popliteal vein, peroneal v ein, posterior tibial veins, gastrocnemius vein, and greater saphenous vein are patent. The left common femoral vein, profunda femoral vein, femoral vein, popliteal vein, peroneal vein, pos terior tibial veins, gastrocnemius vein, and greater saphenous vein are patent. IMPRESSION: 1. Patent bilateral lower extremity veins. No evidence of deep venous thrombosis. Reviewed, dictated and finalized at location K. A SPECIALIST IMPRESSION: 1. Patent bilateral lower extremity veins. No evidence of deep venous thrombos is.
--- NOTE | ~2022-06-11 | US_ITS ---
EXAMINATION: US thoracentesis DATE: 06/11/2022 15:11 INDICATION: pleural effusion TECHNIQUE: The procedure and its risks, benefits, and alternatives were discussed with the patient. P otential risks discussed included bleeding, infection, and pneumothorax. The patient understood the r isks and agreed to proceed. The skin was prepped and draped in sterile fashion. 1% lidocaine was used for local anesthesia. Under ultrasound guidance, a 5 Fr catheter with trochar was advanced into the right pleural effusion. Fluid was aspirated. The catheter was removed, and a dressing was applied. Th ere were no immediate complications. FINDINGS: Ultrasound images demonstrate a right pleural effusion and the catheter within the fluid. IMPRESSION: 1. Successful ultrasound-guided thoracentesis yielding 1000 mL of ariel-colored fluid. Reviewed, dictated and finalized at location A. ET ROW MARKER IMPRESSION: 1. Successful ultrasound-guided thoracentesis yielding 1000 mL of ariel-colore d fluid.
--- NOTE | ~2022-06-11 | XR_ITS ---
Clinical Indication: Shortness of breath AP and lateral views of the chest: Comparison: 03/30/2021 Findings: Moderate to large right pleural effusion is present. Possible minimal central pulmonary selma ous congestive change.. Cardiomediastinal silhouette is stable, with pacemaker device. Bones and sof t tissues are unremarkable. Impression: Moderate to large right pleural effusion. Probable minimal pulmonary venous congestive change. Reviewed, dictated and finalized at location . SELING PSYCHOLOGIST Impression: Moderate to large right pleural effusion. Probable minimal pulmonary venous congestive change.
--- NOTE | ~2022-06-11 | NM_ITS ---
EXAMINATION: NM pulmonary perfusion DATE: 06/12/2022 14:34 INDICATION: Shortness of breath. TECHNIQUE: 4.9 mCi Tc-99m MAA was administered intravenously for perfusion images. Scintigraphic lea ges of the chest were obtained. COMPARISON: Chest single view 06/11/2022 FINDINGS: Perfusion images show large matched defects in right lung. There is a moderate sized defect in apicop osterior segment left upper lobe. There is a large defect in superior segment left lower lobe. IMPRESSION: 1. Nondiagnostic (intermediate probability for pulmonary embolism). Reviewed, dictated and finalized at location A. SOFT SUGAR OPERATOR
--- NOTE | ~2022-06-11 | XR_ITS ---
EXAMINATION: [id number]_CR DATE: 06/11/2022 14:52 INDICATION: Right pleural effusion status post thoracentesis. TECHNIQUE: A single frontal view of the chest was obtained on 2 radiographs. COMPARISON: Chest 2 views 06/11/2022, chest CT 12/10/2021 FINDINGS: There is a moderate-sized right pleural effusion. There are airspace opacities at right mar g base. There is a diffuse interstitial pattern in the lungs, consistent with pulmonary edema. There is a nodule in right upper lobe. Skinfolds overlie left hemithorax. No pneumothorax. Cardiomegaly is noted. There is a left chest wall pacer with leads in the right atrium and right ventricle. IMPRESSION: 1. Moderate-sized right pleural effusion with improvement status post thoracentesis. 2. Airspace opacities at right lung base, consistent with atelectasis versus pneumonia. 3. Mild pulmonary edema. 4. Nodule in right lung upper lobe, which may be infection/scarring or malignancy. The patient report s a recent outside lung biopsy. Correlate with biopsy results. 5. Cardiomegaly. Reviewed, dictated and finalized at location A. SH MOLDER IMPRESSION: 1. Moderate-sized right pleural effusion with improvement status post thoracent esis. 2. Airspace opacities at right lung base, consistent with atelectasis versus pn eumonia. 3. Mild pulmonary edema. 4. Nodule in right lung upper lobe, which may be infection/scarring or malignan cy. The patient reports a recent outside lung biopsy. Correlate with biopsy res ults. 5. Cardiomegaly.
--- NOTE | 2022-06-11 06:22 | ECG_ITS ---
Measurements Intervals [place] Rate: 111 P: 244 MN: 204 QRS: -17 QRSD: 103 T: 133 QT: 351 QTc: 478 Interpretive Statements ATRIAL TACHYCARDIA/FLUTTER WITH RAPID VENTRICULAR RESPONSE INCOMPLETE LEFT BUNDLE BRANCH BLOCK DELAYED PRECORDIAL R/S TRANSITION BORDERLINE ST-T WAVE ABNORMALITY- LAT/HIGH LAT LEADS BASELINE ARTIFACT- I, III, AVL, AVF ABNORMAL ECG COMPARED TO ECG 03/30/2021 19:20:03 ATRIAL TACHYCARDIA/FLUTTER NOW PRESENT ST (T WAVE) DEVIATION NOW PRESENT Electronically Signed On 06-11-2022 8:05:14 [employer] by Lukasz Hudson D.O.
[2022-06-11 06:33] LABS: Basophils Absolute Auto 0.1 K/mm3 (0.0-0.1); Basophils Percent Auto 0.8 % (0.2-1.2); Eosinophils Absolute Auto 0.1 K/mm3 (0-0.3); Eosinophils Percent Auto 1.8 % (0-4.4); Hematocrit 29.3 % (42.0-52.0); Immature Granulocyte Absolute 0.03 K/mm3 (0.00-0.031); Immature Granulocyte Percent A 0.5 % (0-0.5); Lymphocytes Absolute Auto 0.54 K/mm3 (0.9-3.2); Lymphocytes Percent Auto 8.9 % (18.3-44.2); Mean Corpuscular HGB Conc 30.7 g/dl (32-36); Mean Corpuscular Hemoglobin 36.4 pg (26-34); Mean Corpuscular Volume 118.6 fl (80-100); Mean Platelet Volume 9.7 fl (7.4-10.4); Monocytes Absolute Auto 0.8 K/mm3 (0.1-0.6); Monocytes Percent Auto 13.2 % (2.6-8.5); Neutrophils Absolute Auto 4.5 K/mm3 (1.3-6.7); Neutrophils Percent Auto 74.8 % (45.5-73.1); Platelet Count Result 199 k/mm3 (150-375); Red Blood Count 2.47 M/mm3 (4.6-6.20); White Blood Count 6.1 K/mm3 (4.5-10.0)
[2022-06-11 06:44] LABS: Alanine Aminotransferase 24 U/L (6-50); Albumin Level 3.5 g/dL (3.5-5.1); Alkaline Phosphatase 194 U/L (38-126); Anion Gap 9 mmol/L (8-16); Aspartate Amino Transferase 37 U/L (17-59); Bilirubin,Total 1.4 mg/dL (0.2-1.3); Blood Urea Nitrogen 37 mg/dL (9-20); Calcium 8.5 mg/dL (8.4-10.2); Carbon Dioxide 20 mmol/L (22-30); Chloride 108 mmol/L (98-107); Estimated CRCL calculation 16 ml/min; Estimated Glomerular Filt Rate 20; Glucose 119 mg/dL (65-110); Potassium 4.3 mmol/L (3.4-5.0); Sodium 137 mmol/L (137-145)
[2022-06-11 06:56] LABS: Anisocytosis 2+ (NORMAL); Macrocytosis 1+ (NORMAL); Platelet Estimate Adequate (Adequate); Poikilocytosis 1+ (NORMAL)
[2022-06-11 06:57] LABS: Schistocytes Rare (NORMAL)
--- NOTE | 2022-06-11 07:22 | ED.WEAKNESS ---
HPI - Weakness General Chief complaint: Weakness Stated complaint: weakness Time Seen by Provider: 06/11/22 07:21 Source: patient, family and EMS Mode of arrival: EMS Limitations: no limitations History of Present Illness HPI Narrative: 81 years old white male came by ambulance from assisted living complaining of progressive general weakness and shortness of breath over the last 3 to 4 days. 7 sessions of radiation therapy, last one was 4 days ago. Patient reports that his symptoms got worse after the last 1. History of skin cancer, breast cancer and lung cancer. Patient is DNR. He denies any fever, chills, nausea, vomiting. Related Data Home Medications Medication Instructions Recorded Confirmed aspirin 81 mg tablet 81 mg PO DAILY 06/08/20 02/13/22 simvastatin 40 mg tablet 40 mg PO HS 06/08/20 02/13/22 cholecalciferol (vitamin D3) 25 1,000 unit PO DAILY 03/31/21 02/13/22 mcg (1,000 unit) capsule (Vitamin D3) magnesium 250 mg tablet 250 mg PO DAILY 03/31/21 02/13/22 mecobalamin (vitamin B12) 1,000 1,000 mcg PO DAILY 03/31/21 02/13/22 mcg chewable tablet (B12 Active) ferrous sulfate 324 mg (65 mg 324 mg PO BID 02/13/22 02/13/22 iron) tablet,delayed release warfarin 3 mg tablet 4 mg PO HS 02/13/22 02/13/22 acetaminophen 325 mg tablet ([place] 650 mg PO BID 06/11/22 (acetaminophen)) oxycodone 5 mg tablet 5 mg PO Q4H PRN Pain 06/11/22 vitamin B complex 1 cap PO DAILY 06/11/22 Allergies Allergy/AdvReac Type Severity Reaction Status Date / Time No Known Allergies Allergy Verified 03/22/22 15:16 Review of Systems Review of Systems: All systems reviewed & are unremarkable except as noted in HPI and below PMFSH Past Medical History Medical History Anemia in chronic kidney disease Atrial fibrillation Cerebral arteriosclerosis 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 CHF (congestive heart failure) Chronic kidney disease, stage IV (severe) Coronary artery disease Hyperlipidemia Hypertension Lesion of mouth Pneumothorax of right lung after biopsy Skin cancer To nose and left wrist with radiation treatments to left wrist Tobacco dependence Vitamin D deficiency Warfarin anticoagulation Surgical History Surgical History AICD (automatic cardioverter/defibrillator) present (~2005) History of appendectomy History of coronary artery stent placement With 3 stents placed in 2001 and 2002 Status post cataract extraction of both eyes with insertion of intraocular lens Family History Family History Mother Breast cancer Daughter Breast cancer Father Alcoholism Sibling Cancer Social History Social History Social History: He lives at [facility]. He is retired from the [employer] after 20 years of service. 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 He continues to smoke half a pack of cigarettes per day he started smoking at the age of 16. Primary care physician: Dr. Oneal Carrasco Code status: Full code Healthcare power of harpoon engagement planning operator: Gonzalo (son) Smoking packs per day: 0.5 Smoking cigarettes per day: 10.0 Years smoked: 64 Smoking pack-years: 32.00 Smoking status: Current every day smoker Second hand tobacco smoke exposure: Yes Alcohol intake: current Drinks per week: 6 Substance use: never Substance use type: does not use Gender identity (if verbalized by the patient): Male Spiritual care concerns: No Exam Narrative: General appearance: Well-developed, well-nourished, looks weak and tired Skin: Normal color Head: Normocephalic, nontraumatic Eyes: Clear conjunctiva ENT: Oropharynx normal, ears normal, nos
[2022-06-11 07:25] LABS: Influenza A QL RT-PCR Negative (Negative); Influenza B QL RT-PCR Negative (Negative); RSV RNA, RT-PCR Negative (Negative); SARS-CoV-2 RNA PCR Negative
[2022-06-11 07:58] LABS: Alveolar/Arterial O2 Gradient 50.5 mmHg; Base Excess ABG -5.5 mEq/l (+/-2.0); Fractional Inspired Oxygen 21 %; HCO3 ABG 18.1 mEq/l (22.0-26.0); Oxygen Content ABG 12.5 %vol (16.0-22.0); Oxygen Saturation ABG 93.2 % (95.0-100.0); Oxyhemoglobin 90.4 % THb (90.0-100.0); PO2 ABG 64.5 mmHg (80.0-100.0); PO2 FiO2 Ratio Arterial Blood 3.07 %; Total Hemoglobin 9.8 g/dL (12.0-18.0); pH ABG 7.414 (7.350-7.450)
[2022-06-11 07:59] LABS: Device ROOM AIR; Site Drawn LEFT BRACHIAL
[2022-06-11 08:30] LABS: INR 1.6; Prothrombin Time 18.9 Seconds (11.1-14.7)
[2022-06-11 08:31] LABS: Partial Thromboplastin Time 33.6 SECONDS (22.3-36.8)
[2022-06-11 08:32] LABS: Lactic Acid Reflex 2.4 mmol/L (0.7-2.0)
[2022-06-11 08:35] LABS: CRP 4.2 mg/dL (<1.0)
[2022-06-11 08:48] LABS: Troponin I 0.085 ng/mL (0.000-0.034)
[2022-06-11] MEDS: SODIUM CHLORIDE 0.9% IV 1,000 ML 150 ML IV CONT (10:13)
[2022-06-11 11:18] LABS: Reflex Lactic Acid Yes or No Add Lactic
[2022-06-11 12:16] LABS: Lactic Acid 1.8 mmol/L (0.7-2.0)
--- NOTE | 2022-06-11 13:30 | PM.IMHP ---
H&P: HPI History of Present Illness Date/Time: 06/11/22 13:30 Chief Complaint: Weakness and shortness of breath. 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 He is currently receiving radiation to the scalp and left breast for his renal cancer with his last treatment being approximately 4 days ago. Since that time he has become increasingly weak and short of breath and is to the point where he can hardly walk 3 steps without getting winded with sensations of racing heart and weakness. On arrival to the ED he was tachycardic and tachypneic. Chest x-ray showed moderate to large right-sided pleural effusion with probable minimal pulmonary venous congestive changes. He is now status post thoracentesis which yielded 1000 mL of ariel-colored fluid; chest x-ray done post thoracentesis showed a nodule in the right upper lobe which may be infection/scarring or malignancy. Patient reports this is the site where he was previously radiated for lung cancer. He is feeling less short of breath now but has developed a mild cough since fluid was drained. He denies fever, chills, sweats, orthopnea, paroxysmal nocturnal dyspnea, and lower extremity edema. He also denies chest and pleuritic pain and palpitations. No history of congestive heart failure or cirrhosis. Review of Systems Review of Systems: Twelve systems were reviewed and are negative except for as per HPI. FOR[facility]LY [facility] Past Medical History Medical History (Updated 06/11/22 @ 20:49 by Opal Del Toro PA-C) Anemia in chronic kidney disease Atrial fibrillation Cerebral arteriosclerosis with history of previous stroke (~2008) Residual l right-sided weakness. 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 Tobacco dependence Vitamin D deficiency Warfarin anticoagulation Surgical History Surgical History History of appendectomy History of cataract extraction with lens replacement History of coronary artery stent placement With 3 stents placed in 2001 and 2002 History of implantable cardioverter-defibrillator (ICD) placement (~2005) Family History Family History Mother Breast cancer Daughter Breast cancer Father Alcoholism Sibling Cancer Social History Social History (Updated 06/11/22 @ 20:38 by Opal Del Toro PA-C) Social History: Lives in independent living at [facility]. 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 He continues to smoke half a pack of cigarettes per day he started smoking at the age of 16. Primary care physician: Dr. Oneal Carrasco [facility] power of criminal defense attorney: Gonzalo Trammell, son. Code status: Do not resuscitate. Smoking packs per day: 0.5 Smoking cigarettes per day: 10.0 Years smoked: 64 Smoking pack-years: 32.00 Smoking status: Current every day smoker Second hand tobacco smoke exposure: Yes Alcohol intake: current Drinks per week: 6 Substance use: never Substance use type: does not use Spiritual care concerns: No Meds Home Medications and Allergies Home Medications Medication Instructions Recorded Confirmed Type aspirin 81 mg tablet 81 mg PO DAILY 06/08/20 02/13/22 History simvastatin 40 mg tablet 40 mg PO HS 06/08/20 02/13/22 History ch
[2022-06-11 15:57] LABS: pH Pleural Fluid 7.448 (7.210-7.500)
[2022-06-11 17:00] LABS: Troponin I 0.087 ng/mL (0.000-0.034)
[2022-06-11] MEDS: SODIUM CHLORIDE 0.9% IV 1,000 ML 125 ML IV CONT (17:09)
[2022-06-11 18:02] LABS: Appearance Pleural Fluid Bloody (Clear); Pleural fluid source Pleural fluid
[2022-06-11 18:03] LABS: Color Pleural Fluid Red (Colorless); Lymphocytes Pleural Fluid 43 %; Monocytes Pleural Fluid 48 %; Neutrophils Pleural Fluid 9 % (0-25); Nucleated Cell Pleural Fluid 965 /uL (0-1000); RBC Pleural Fluid 14239 /uL (0-0)
[2022-06-11 20:08] LABS: Troponin I 0.092 ng/mL (0.000-0.034)
[2022-06-11] MEDS: FUROSEMIDE INJ 40 MG/4 ML VIAL 20 MG IV PUSH (21:24)
[2022-06-11] MEDS: DOXYCYCLINE 100 MG/NS 100 ML 100 MG/100 ML BAG IVPB (21:52)
--- NOTE | 2022-06-11 22:39 | PC.NURSE ---
This patient, Gerry Jensen, was admitted to 3 [facility] Surg Room 321-01. Patient/family oriented to hospital policies and general routines including ID bracelet, bed and alarms, visiting hours, pain management, procedures, bathroom and other care routines, personal items, smoking policy, room service/diet, and visiting hours. Information on how to activate the Rapid Response Team has been discussed. Patient/Family are encouraged to report perceived risks to care and to ask questions if they do not understand what they are told or what they should do. arrived at 2239, received report from Renetta WISDOM RN
[2022-06-12] VITALS (12 sets, daily range): BP systolic 106–131; BP diastolic 56–67; PULSE 70–116; RESP 16–20; TEMP 36.4–36.6; O2SAT 93–97; BMI 21.2
[2022-06-12 07:34] LABS: Basophils Percent Auto 0.5 % (0.2-1.2); Eosinophils Absolute Auto 0.1 K/mm3 (0-0.3); Eosinophils Percent Auto 1.3 % (0-4.4); Hematocrit 25.8 % (42.0-52.0); Immature Granulocyte Absolute 0.03 K/mm3 (0.00-0.031); Immature Granulocyte Percent A 0.5 % (0-0.5); Lymphocytes Absolute Auto 0.41 K/mm3 (0.9-3.2); Lymphocytes Percent Auto 6.9 % (18.3-44.2); Mean Corpuscular Hemoglobin 35.1 pg (26-34); Mean Corpuscular Volume 113.2 fl (80-100); Mean Platelet Volume 9.7 fl (7.4-10.4); Monocytes Absolute Auto 0.8 K/mm3 (0.1-0.6); Neutrophils Absolute Auto 4.6 K/mm3 (1.3-6.7); Neutrophils Percent Auto 77.8 % (45.5-73.1); Nucleated Red Blood Cells Perc 0.7 % (0.0-0.2); Platelet Count Result 181 k/mm3 (150-375); Red Blood Count 2.28 M/mm3 (4.6-6.20); Red Cell Distribution Width 18.5 % (11.5-14.5); White Blood Count 5.9 K/mm3 (4.5-10.0)
--- NOTE | 2022-06-12 07:37 | P.PNIM_ITS ---
Progress Note: A&P Assessment and Plan (1) Shortness of breath: Code(s): R06.02 - Shortness of breath Status: Acute Assessment and Plan: The patient presented to the emergency department for evaluation of progressive dyspnea on exertion and weakness the last several days. He was tachypneic and tachycardic on arrival to the ED with stable oxygen saturations. * CXR revealed large R pleural effusion - Thoracentesis yeilded 1000mL of fluid * Hx of multiple malignancies * r/o PE - V/Q ordered due to pt creatinine of 20 * echo ordered * BNP ordered * Patient put on ceftriaxone and doxy for possible infectious pleural effusion * Cancer antigens pending * Patient not appear fluid overloaded on presentation patient was given 1 dose IV Lasix on 06/11/2022 * Continue patient's home Lasix to possibly help with pleural effusion * Will monitor kidney function while on Lasix. May have to DC if creatinine continues to rise. * Lactic acid 2.4 on arrival, repeat 1.8 (2) Pleural effusion on right: Code(s): J90 - Pleural effusion, not elsewhere classified Status: Acute Assessment and Plan: Status post thoracentesis * thoracentesis yeilded 1000mL of fluid * Pleural Fluid analysis revealed elevated RBCs normal pH and PMNs * pulmonology consulted * broad spectrum antibiotics given - ceftriaxone and doxy * echo ordered * Continue home Lasix (3) MANJIT (acute kidney injury): Code(s): N17.9 - Acute kidney failure, unspecified Status: Acute Assessment and Plan: On arrival patient's creatinine found to be elevated at 3 * From recent hospital stays patient's creatinine seems to be between the low 2s to mid 2s * Patient's fluids discontinued due to risk of fluid overload * Consult nephrology (4) Elevated troponin: Code(s): R77.8 - Other specified abnormalities of plasma proteins Status: Acute Assessment and Plan: troponin mildly elevated but remain flat - continue to monitor (5) Macrocytic anemia: Code(s): D53.9 - Nutritional anemia, unspecified Status: Acute Assessment and Plan: Chronic * continue ferrous sulfate and b12 (6) Coronary artery disease: Qualifiers: Associated angina: without angina Coronary Disease-Associated Artery/Lesion type: unspecified vessel or lesion type [place] vs. transplanted heart: [place] heart Qualified Code(s): I25.10 - Atherosclerotic heart disease of [place] coronary artery without angina pectoris Code(s): I25.10 - Atherosclerotic heart disease of [place] coronary artery without angina pectoris Status: Acute Assessment and Plan: continue statin (7) Anticoagulant long-term use: Code(s): Z79.01 - shelter (current) use of anticoagulants Status: Acute Assessment and Plan: Patient on long-term anticoagulant use due to chronic AFib * Patient INR on arrival 1.6-subtherapeutic * INR goal between 2-3 * Continue warfarin * Monitor INR (8) Atrial fibrillation: Code(s): I48.91 - Unspecified atrial fibrillation Status: Acute Assessment and Plan: Chronic * Rate controlled * Continue warfarin * Continue metoprolol * Telemetry ordered (9) Chronic kidney disease, stage IV (severe): Code(s): N18.4 - Chronic kidney disease, stage 4 (severe) Status: Acute Assessment and Plan: Patient's creatinine seems to average in the low to mid 2s * Creatinine arrival was 3 * Continue to monitor Subjective Date/time seen: 06/12/22 07:37 Interv
--- NOTE | 2022-06-12 07:37 | PM.IMPN ---
Progress Note: A&P Assessment and Plan (1) Shortness of breath: Code(s): R06.02 - Shortness of breath Status: Acute Assessment and Plan: The patient presented to the emergency department for evaluation of progressive dyspnea on exertion and weakness the last several days. He was tachypneic and tachycardic on arrival to the ED with stable oxygen saturations. CXR revealed large R pleural effusion - Thoracentesis yeilded 1000mL of fluid Hx of multiple malignancies r/o PE - V/Q ordered due to pt creatinine of 20 echo ordered BNP ordered Patient put on ceftriaxone and doxy for possible infectious pleural effusion Cancer antigens pending Patient not appear fluid overloaded on presentation patient was given 1 dose IV Lasix on 06/11/2022 Continue patient's home Lasix to possibly help with pleural effusion Will monitor kidney function while on Lasix. May have to DC if creatinine continues to rise. Lactic acid 2.4 on arrival, repeat 1.8 (2) Pleural effusion on right: Code(s): J90 - Pleural effusion, not elsewhere classified Status: Acute Assessment and Plan: Status post thoracentesis thoracentesis yeilded 1000mL of fluid Pleural Fluid analysis revealed elevated RBCs normal pH and PMNs pulmonology consulted broad spectrum antibiotics given - ceftriaxone and doxy echo ordered Continue home Lasix (3) MANJIT (acute kidney injury): Code(s): N17.9 - Acute kidney failure, unspecified Status: Acute Assessment and Plan: On arrival patient's creatinine found to be elevated at 3 From recent hospital stays patient's creatinine seems to be between the low 2s to mid 2s Patient's fluids discontinued due to risk of fluid overload Consult nephrology (4) Elevated troponin: Code(s): R77.8 - Other specified abnormalities of plasma proteins Status: Acute Assessment and Plan: troponin mildly elevated but remain flat - continue to monitor (5) Macrocytic anemia: Code(s): D53.9 - Nutritional anemia, unspecified Status: Acute Assessment and Plan: Chronic continue ferrous sulfate and b12 (6) Coronary artery disease: Qualifiers: Associated angina: without angina Coronary Disease-Associated Artery/Lesion type: unspecified vessel or lesion type [place] vs. transplanted heart: [place] heart Qualified Code(s): I25.10 - Atherosclerotic heart disease of [place] coronary artery without angina pectoris Code(s): I25.10 - Atherosclerotic heart disease of [place] coronary artery without angina pectoris Status: Acute Assessment and Plan: continue statin (7) Anticoagulant long-term use: Code(s): Z79.01 - nursing home (current) use of anticoagulants Status: Acute Assessment and Plan: Patient on long-term anticoagulant use due to chronic AFib Patient INR on arrival 1.6-subtherapeutic INR goal between 2-3 Continue warfarin Monitor INR (8) Atrial fibrillation: Code(s): I48.91 - Unspecified atrial fibrillation Status: Acute Assessment and Plan: Chronic Rate controlled Continue warfarin Continue metoprolol Telemetry ordered (9) Chronic kidney disease, stage IV (severe): Code(s): N18.4 - Chronic kidney disease, stage 4 (severe) Status: Acute Assessment and Plan: Patient's creatinine seems to average in the low to mid 2s Creatinine arrival was 3 Continue to monitor Subjective Date/time seen: 06/12/22 07:37 Interval history: 06/15/22 81-year-old male with history of stroke, coronary disease, AFib, chronic kidney disease, lung cancer status post radiation, 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 Patient was found to have right pleural effusion and underwent thoracentesis which yielded
[2022-06-12 07:41] LABS: Anion Gap 8 mmol/L (8-16); Blood Urea Nitrogen 38 mg/dL (9-20); Calcium 8.2 mg/dL (8.4-10.2); Carbon Dioxide 19 mmol/L (22-30); Chloride 111 mmol/L (98-107); Estimated CRCL calculation 15 ml/min; Estimated Glomerular Filt Rate 20; Glucose 88 mg/dL (65-110); Magnesium 2.4 mg/dL (1.6-2.3); Potassium 4.4 mmol/L (3.4-5.0); Sodium 138 mmol/L (137-145)
[2022-06-12 08:18] LABS: INR 1.7; Prothrombin Time 19.1 Seconds (11.1-14.7)
[2022-06-12] MEDS: VITAMIN B COMPLEX CAPSULE 1 CAP PO (09:18)
[2022-06-12] MEDS: METOPROLOL TARTRATE 25 MG TABLET PO ×2 (09:18→20:02)
[2022-06-12] MEDS: MUPIROCIN 2% OINT 22 GM TUBE 1 APPLIC EACH NARE ×3 (09:18→16:45)
[2022-06-12] MEDS: CHOLECALCIFEROL 1,000 UNITS TABLET 1000 UNITS PO (09:18)
[2022-06-12] MEDS: ASPIRIN 81 MG CHEWABLE TABLET PO (09:19)
[2022-06-12] MEDS: MAGNESIUM 13.5 MG TABLET (250 MG MAG GLUCONATE) PO (09:19)
[2022-06-12] MEDS: CYANOCOBALAMIN 1,000 MCG TABLET 1000 MCG PO (09:19)
[2022-06-12] MEDS: FUROSEMIDE 20 MG TABLET PO (09:19)
[2022-06-12] MEDS: FERROUS SULFATE 324 MG TABLET PO ×2 (09:19→16:45)
[2022-06-12] MEDS: ACETAMINOPHEN 325 MG TABLET 650 MG PO ×2 (09:20→16:45)
[2022-06-12] MEDS: DOXYCYCLINE 100 MG/NS 100 ML 100 MG/100 ML BAG IVPB ×2 (09:24→20:34)
[2022-06-12 10:32] LABS: Platelet Estimate Adequate (Adequate); Schistocytes None Seen (NORMAL)
[2022-06-12 10:33] LABS: Hypochromasia 1+ (NORMAL); Macrocytosis 1+ (NORMAL); Microcytosis 1+ (NORMAL)
[2022-06-12 10:34] LABS: Anisocytosis 2+ (NORMAL)
--- NOTE | 2022-06-12 13:00 | PC.NURSE ---
per wound care, attempted to place bandage/dressing over pt's wound on scalp; however, pt complained and stated he did not want it on there. Wound left open to air as pt demanded.
--- NOTE | 2022-06-12 13:04 | PM.CNPUL ---
Assessment and Plan Assessment and plan (1) Lung malignancy: Code(s): C34.90 - Malignant neoplasm of unspecified part of unspecified bronchus or lung Status: Acute Assessment and Plan: I spoke with Dr. Pipe San his radiation oncologist. Patient had early stage lung cancer in 09/24/2021 and in 10/[address] and PET Imaging on 04/03/2022 showed a moderate right pleural effusion with no FDG pleural uptake, low level mediastinal lymph node uptake (unchanged), right oral activity but no lesions consistent with active metastatic disease. The patient does not have a medical oncologist. overall in March Dr. San felt the patient's lung cancer was clinically stable. Currently the patient has a right pleural effusion status post thoracentesis demonstrating normal pH with 43% lymphocytes. Cytology is pending and should be back on 06/15/2022. I will order CT scan of the chest to assess for recurrent lung cancer and or metastatic disease from his oral cancer and a or skin cancer. Alternative etiologies of the right pleural effusion should be considered and a perfusion scan has been ordered. Echocardiogram shows severely globally reduced EF of 20-25%, right ventricular chamber is normal, mildly reduced RV function, moderately enlarged left atrium, mildly enlarged right atrium, abnormal diastolic function, moderate aortic valve stenosis, moderate mitral valve regurgitation, moderate tricuspid regurgitation with severe pulmonary hypertension at a pressure of 109. I have no prior echocardiograms for comparison. Will await the chemistries from the pleural fluid to see if this is a transudate versus an exudate. The chest x-ray she demonstrates no left pleural effusion and there may be mild peripheral vascular redistribution and congestion. the patient does not appear grossly fluid overload. I will check a BNP in the morning. Patient has positive troponins and I would consider cardiology consult. Blood cultures from 06/10 x2 and 06/11 x 2 are no growth to date. Patient influenza, RSV and COVID RT PCR studies are negative. Patient is currently on ceftriaxone and doxycycline for possible community-acquired pneumonia and I would continue. (2) Pleural effusion on right: Code(s): J90 - Pleural effusion, not elsewhere classified Status: Acute Assessment and Plan: Patient has had a moderate pulmonary effusion dating back at least to his CT-PET on 04/03/[address] aSn. There is a small right pleural effusion on a CT scan from 12/10/2021. Chest x-ray on 03/30/2021 demonstrated no right pleural effusion (3) COPD (chronic obstructive pulmonary disease): Code(s): J44.9 - Chronic obstructive pulmonary disease, unspecified Status: Acute Assessment and Plan: Patient has a 23 pack year history of tobacco use and states he quit in March of 2022. CT scan of the chest on 12/10/2021 demonstrates moderate apical predominant centrilobular emphysema. I have no PFTs. at baseline he tells me approximately 1 month ago he had no dyspnea on exertion or limitations from his respiratory issues. Currently patient is on room air with saturations 93%. Currently the patient is not wheezing and has no evidence of a COPD exacerbation. I will empirically start him on levalbuterol and ipratropium nebulizers Q 6 hours to see if offers him any improvement. History of Present Illness History of Present Illness Consult date: 06/12/22 Chief complaint: Right Pleural Effusion/Dehydration/Elevated Trop/T Narrative: 06/12/2022: This is a new pulmonary consult for lung cancer with a right pleural effusion 81-year-old man with a history of lung cancer diagnosed 09/24/2021, skin cancer status post radiation treatment to his chest and head completed 12 08/24/2021, oral cancer status post laser resection, chronic renal insufficiency, CVA, coronary artery disease, and atrial fibrillation on warfarin. I spoke
--- NOTE | 2022-06-12 13:51 | PM.CNNEP ---
Assessment and Plan Assessment and plan (1) MANJIT (acute kidney injury): Code(s): N17.9 - Acute kidney failure, unspecified Status: Acute Assessment and Plan: etiology? possible CKD disease progression? infection? new CHF? altered hemodynamics check renal ultrasound check urine electrolytes, urine eosinophils and CPK follow-up on Echo monitor repeat labs and UOP (2) Chronic kidney disease, stage IV (severe): Code(s): N18.4 - Chronic kidney disease, stage 4 (severe) Status: Chronic Assessment and Plan: baseline creatinie runs ~ 2.1 - 2.6mg/dl presumably due to HTN, vascular disease, and age-related change (3) Shortness of breath: Code(s): R06.02 - Shortness of breath Status: Acute Assessment and Plan: presumably due to right pleural effusion Pulmonary recommendations noted follow-up on V/Q and CT of chest empiric antibiotics for infectious effusion follow respiratory status (4) Pleural effusion on right: Code(s): J90 - Pleural effusion, not elsewhere classified Status: Acute Assessment and Plan: s/p thoracentesis (~ 1000cc fluid removed) pleura fluid analysis noted on antibiotics follow-up on pleural fluid cytology (5) Atrial fibrillation: Code(s): I48.91 - Unspecified atrial fibrillation Status: Chronic Assessment and Plan: continue rate control strategy on anticogulation Long extensive discussion (> 20 minutes) with patient as well as his son at bedside regarding his worsening renal function and my concern that if this continues to progress, he may require further intervention in the form of possible renal replacement therapy/dialysis. Based on my discussion with the patient, it does not seem he would be willing to go through such an intervention given his multitude of other medical issues and problems which seems reasonable/appropriate. Will continue to follow. History of Present Illness Reason for Consult Consult date: 06/12/22 Reason for consult: acute renal failure (on chronic kidney disease) Chief Complaint Chief complaint: Right Pleural Effusion/Dehydration/Elevated Trop/T History of Present Illness Narrative: The patient is a very pleasant 81-year-old male with an extensive past medical history as outlined below who presented to [facility] Emergency room via EMS from his nursing facility for further evaluation of shortness of breath in association with weakness. The patient reports increasing weakness and shortness of breath for last four five days which seems to correlate with his last radiation treatment for his underlying malignancy. He states he can hardly get up and walk without feeling short of breath and a sensation of a racing heart as well as generalized weakness. As the symptoms continue to persist despite conservative therapy, he presented to the ER for further assessment. Workup and evaluation emergency room demonstrated the patient to be tachycardic as well as tachypneic but otherwise hemodynamically stable. A chest x-ray showed a moderate to large right pleural effusion with probable minimal pulmonary venous congestive changes. Routine blood test demonstrated some worsening of his kidney function/disease in comparison the baseline in association with anemia. He subsequently underwent a right thoracentesis with approximately 1000 cc of fluid. A postprocedure chest x-ray showed a right upper lobe nodule concerning for possible infection / scarring or malignancy. Following the thoracentesis, his breathing did improve. Given his constellation of symptoms that led to his presentation to the ER as well as the a for mentioned imaging and laboratory findings, he was admitted to the hospital for further evaluation and therapy. Renal consultation was requested due to his acute kidney injury on top of his baseline kidney disease. From review his records, the patient
[2022-06-12] MEDS: WARFARIN (*PBKC) 4 MG TABLET PO (16:45)
[2022-06-12] MEDS: SIMVASTATIN 20 MG TABLET 40 MG PO (20:02)
--- NOTE | 2022-06-12 20:33 | PC.NURSE ---
pt c/o cramping called IMAN Del Toro for medication of pt cramping in legs bilaterally
--- NOTE | 2022-06-12 20:45 | PC.NURSE ---
son to bring pt cramping medication
--- NOTE | 2022-06-12 20:51 | ECHO_ITS ---
Patient Info Name: Gerry Jensen Age: 81 years : 1940 Gender: Male Ht: 67 in Wt: 142 lbs BSA: 1.75 m2 HR: 110 bpm BP: 106 / 56 mmHg Technical Quality: Good Exam Date: 06/12/2022 8:41 AM Exam Location: [facility] Pulmonary Patient Status: Inpatient Admit Date: 06/11/2022 Staff Ordering Physician: Opal Del Toro PA-C Hospital Internship: Gilmer King, YURY, RT Attending Provider: Nichelle Pelayo MD Referring Physician: Alverto HARDWICK; Exam Type: CA echo doppler color flow Study Info Indications I51.7 - Cardiomegaly I48.1 - Persistent atrial fibrillation I50.9 - Heart failure, unspecified Complete two-dimensional, color flow and Doppler transthoracic echocardiogram is performed. Strain analysis performed. Summary 1. Complete two-dimensional, color flow and Doppler transthoracic echocardiogram is performed. 2. Left ventricular chamber dimension is moderately enlarged. 3. Left ventricular systolic function is severely globally reduced, estimated at 20-25%. 4. The left ventricular diastolic function is abnormal. 5. E/e' 10 is mildly elevated. 6. Global longitudinal strain is abnormal at -8.1%. 7. Right ventricular systolic function is mildly reduced and with abnormal TAPSE 1.5 cm. 8. Linear artifact in right ventricle suggestive of catheter(s), pacemaker lead(s), or ICD lead(s). 9. Left atrial chamber dimension is moderately enlarged. 10. Right atrial chamber dimension is mildly enlarged. 11. Linear artifact in the right atrium suggestive of catheter(s), pacemaker lead(s), or ICD lead(s). 12. There is severe aortic valve sclerosis. 13. There is mild aortic valve regurgitation. 14. There is moderate aortic valve stenosis with a peak velocity of 221 cm/s, mean gradient of 11 mmHg, and aortic valve area of 1.4 cm2. The dimensionless index of 0.43 suggests aortic stenosis is not severe. 15. There is moderate mitral valve regurgitation. 16. There is moderate tricuspid valve regurgitation. 17. Severe pulmonary hypertension, estimated pulmonary arterial systolic pressure is 109 mmHg. 18. Dilated inferior vena cava with <50% collapse upon inspiration consistent with significantly elevated right atrial pressure, 15 mmHg. Left Ventricle E/e' 10 is mildly elevated. Global longitudinal strain is abnormal at -8.1%. Left ventricular systolic function is severely globally reduced, estimated at 20-25%. Left ventricular chamber dimension is moderately enlarged. The left ventricular diastolic function is abnormal. Right Ventricle Right ventricular systolic function is mildly reduced and with abnormal TAPSE 1.5 cm. Linear artifact in right ventricle suggestive of catheter(s), pacemaker lead(s), or ICD lead(s). Right ventricular chamber dimension is normal. Left Atria Left atrial chamber dimension is moderately enlarged. Right Atria Linear artifact in the right atrium suggestive of catheter(s), pacemaker lead(s), or ICD lead(s). Right atrial chamber dimension is mildly enlarged. Aortic Valve There is moderate aortic valve stenosis with a peak velocity of 221 cm/s, mean gradient of 11 mmHg, and aortic valve area of 1.4 cm2. The dimensionless index of 0.43 suggests aortic stenosis is not severe. The aortic valve is trileaflet. There is severe aortic valve sclerosis. There is mild aortic valve regurgitation. Pulmonic Valve There is no pulmonic regurgitation. Mitral Valve There is no mitral valve stenosis. There is moderate mitral valve regurgitation. Tricuspid
--- NOTE | 2022-06-12 20:51 | PC.NURSE ---
pt c/o cramping called MISBAH Menendez for medication of pt cramping in legs bilaterally, N.o requip 0.125mg HS PO r/t cramping
--- NOTE | 2022-06-12 21:22 | PC.NURSE ---
son brought in homeopathic leg cramp medication ok'd to given per [employer] Shon prn 1-2 tablets q4hrs r/t cramping
[2022-06-12] MEDS: IPRATROPIUM BR 0.02% INH SOLN 0.5 MG/2.5 ML VIAL INHALATION (21:39)
--- NOTE | 2022-06-12 22:15 | PHAR ---
Pharmacy identified home medication: Unable to tablet ID, however nursing claimed they opened a sealed bottle Jada Menendez would like for the patient to receive this med Homeopathic leg cramps PM from [facility] Give 1 to 2 tablets every 4 hours as needed for cramping
[2022-06-13] VITALS (18 sets, daily range): BP systolic 118–126; BP diastolic 59–70; PULSE 80–112; RESP 16–20; TEMP 35.9–36.7; O2SAT 97–100
[2022-06-13] MEDS: ACETAMINOPHEN 325 MG TABLET 650 MG PO ×2 (06:15→16:43)
--- NOTE | 2022-06-13 06:16 | PC.NURSE ---
pt required Tylenol r/t generalized chronic pain, N.O DO Hopen, Tylenol 65o mg po q4h prn, no more than 4 g in 24 hour period.
[2022-06-13 07:33] LABS: Hematocrit 28.4 % (42.0-52.0); Hemoglobin 8.6 g/dL (14.0-18.0); Mean Corpuscular HGB Conc 30.3 g/dl (32-36); Mean Corpuscular Hemoglobin 36.1 pg (26-34); Mean Corpuscular Volume 119.3 fl (80-100); Platelet Count Result 185 k/mm3 (150-375); Red Blood Count 2.38 M/mm3 (4.6-6.20); Red Cell Distribution Width 18.8 % (11.5-14.5); White Blood Count 6.9 K/mm3 (4.5-10.0)
[2022-06-13 07:42] LABS: INR 1.8
[2022-06-13 07:48] LABS: NT Pro B Type Natriuretic Pept 29300 pg/mL (5-100)
[2022-06-13 07:52] LABS: Alanine Aminotransferase 30 U/L (6-50); Albumin Level 3.1 g/dL (3.5-5.1); Alkaline Phosphatase 215 U/L (38-126); Anion Gap 10 mmol/L (8-16); Aspartate Amino Transferase 50 U/L (17-59); Bilirubin,Total 1.3 mg/dL (0.2-1.3); Blood Urea Nitrogen 41 mg/dL (9-20); Calcium 8.2 mg/dL (8.4-10.2); Carbon Dioxide 16 mmol/L (22-30); Chloride 111 mmol/L (98-107); Estimated CRCL calculation 15 ml/min; Estimated Glomerular Filt Rate 19; Glucose 103 mg/dL (65-110); Potassium 4.1 mmol/L (3.4-5.0); Sodium 137 mmol/L (137-145)
--- NOTE | 2022-06-13 07:58 | P.PNIM_ITS ---
Progress Note: A&P Assessment and Plan (1) Shortness of breath: Code(s): R06.02 - Shortness of breath Status: Acute Assessment and Plan: The patient presented to the emergency department for evaluation of progressive dyspnea on exertion and weakness the last several days. He was tachypneic and tachycardic on arrival to the ED with stable oxygen saturations. * CXR revealed large R pleural effusion - Thoracentesis yeilded 1000mL of fluid * Hx of multiple malignancies * r/o PE - V/Q ordered due to pt creatinine of 20 * echo ordered * BNP ordered * Patient put on ceftriaxone and doxy for possible infectious pleural effusion * Cancer antigens pending * Patient not appear fluid overloaded on presentation patient was given 1 dose IV Lasix on 06/11/2022 * Continue patient's home Lasix to possibly help with pleural effusion * Will monitor kidney function while on Lasix. May have to DC if creatinine continues to rise. * Lactic acid 2.4 on arrival, repeat 1.8 * Echo results: EF 20-25% LVH, systolic function severly reduced, diastolic dysfunction, pacemaker present, severe pulmonary hypertension with systolic pressure of 109, severe aortic valve sclerosis, mild aortic valve regurg, moderate aortic valve stenosis * consult cardiology * Had a discussion with family about hospice. Family is open to hospice meeting. Care coordination consulted. (2) Pleural effusion on right: Code(s): J90 - Pleural effusion, not elsewhere classified Status: Acute Assessment and Plan: Status post thoracentesis * thoracentesis yeilded 1000mL of fluid * Pleural Fluid analysis revealed elevated RBCs normal pH and PMNs * pulmonology consulted * broad spectrum antibiotics given - ceftriaxone and doxy * echo ordered * Continue home Lasix (3) MANJIT (acute kidney injury): Code(s): N17.9 - Acute kidney failure, unspecified Status: Acute Assessment and Plan: On arrival patient's creatinine found to be elevated at 3 * From recent hospital stays patient's creatinine seems to be between the low 2s to mid 2s * Patient's fluids discontinued due to risk of fluid overload * Consult nephrology (4) Elevated troponin: Code(s): R77.8 - Other specified abnormalities of plasma proteins Status: Acute Assessment and Plan: troponin mildly elevated but remain flat - continue to monitor (5) Macrocytic anemia: Code(s): D53.9 - Nutritional anemia, unspecified Status: Acute Assessment and Plan: Chronic * continue ferrous sulfate and b12 (6) Coronary artery disease: Qualifiers: Associated angina: without angina Coronary Disease-Associated Artery/Lesion type: unspecified vessel or lesion type [place] vs. transplanted heart: [place] heart Qualified Code(s): I25.10 - Atherosclerotic heart disease of [place] coronary artery without angina pectoris Code(s): I25.10 - Atherosclerotic heart disease of [place] coronary artery without angina pectoris Status: Acute Assessment and Plan: continue statin (7) Anticoagulant long-term use: Code(s): Z79.01 - [facility] (current) use of anticoagulants Status: Acute Assessment and Plan: Patient on long-term anticoagulant use due to chronic AFib * Patient INR on arrival 1.6-subtherapeutic * INR goal between 2-3 * Continue warfarin * Monitor INR (8) Atrial fibrillation: Code(s): I48.91 - Unspecified atrial fibrillation Status: Acute Assessment and Plan: Chronic * Rate controlled * Continue warfarin * Contin
--- NOTE | 2022-06-13 07:58 | PM.IMPN ---
Progress Note: A&P Assessment and Plan (1) Shortness of breath: Code(s): R06.02 - Shortness of breath Status: Acute Assessment and Plan: The patient presented to the emergency department for evaluation of progressive dyspnea on exertion and weakness the last several days. He was tachypneic and tachycardic on arrival to the ED with stable oxygen saturations. CXR revealed large R pleural effusion - Thoracentesis yeilded 1000mL of fluid Hx of multiple malignancies r/o PE - V/Q ordered due to pt creatinine of 20 echo ordered BNP ordered Patient put on ceftriaxone and doxy for possible infectious pleural effusion Cancer antigens pending Patient not appear fluid overloaded on presentation patient was given 1 dose IV Lasix on 06/11/2022 Continue patient's home Lasix to possibly help with pleural effusion Will monitor kidney function while on Lasix. May have to DC if creatinine continues to rise. Lactic acid 2.4 on arrival, repeat 1.8 Echo results: EF 20-25% LVH, systolic function severly reduced, diastolic dysfunction, pacemaker present, severe pulmonary hypertension with systolic pressure of 109, severe aortic valve sclerosis, mild aortic valve regurg, moderate aortic valve stenosis consult cardiology Had a discussion with family about hospice. Family is open to hospice meeting. Care coordination consulted. (2) Pleural effusion on right: Code(s): J90 - Pleural effusion, not elsewhere classified Status: Acute Assessment and Plan: Status post thoracentesis thoracentesis yeilded 1000mL of fluid Pleural Fluid analysis revealed elevated RBCs normal pH and PMNs pulmonology consulted broad spectrum antibiotics given - ceftriaxone and doxy echo ordered Continue home Lasix (3) MANJIT (acute kidney injury): Code(s): N17.9 - Acute kidney failure, unspecified Status: Acute Assessment and Plan: On arrival patient's creatinine found to be elevated at 3 From recent hospital stays patient's creatinine seems to be between the low 2s to mid 2s Patient's fluids discontinued due to risk of fluid overload Consult nephrology (4) Elevated troponin: Code(s): R77.8 - Other specified abnormalities of plasma proteins Status: Acute Assessment and Plan: troponin mildly elevated but remain flat - continue to monitor (5) Macrocytic anemia: Code(s): D53.9 - Nutritional anemia, unspecified Status: Acute Assessment and Plan: Chronic continue ferrous sulfate and b12 (6) Coronary artery disease: Qualifiers: Associated angina: without angina Coronary Disease-Associated Artery/Lesion type: unspecified vessel or lesion type [place] vs. transplanted heart: [place] heart Qualified Code(s): I25.10 - Atherosclerotic heart disease of [place] coronary artery without angina pectoris Code(s): I25.10 - Atherosclerotic heart disease of [place] coronary artery without angina pectoris Status: Acute Assessment and Plan: continue statin (7) Anticoagulant long-term use: Code(s): Z79.01 - nursing home (current) use of anticoagulants Status: Acute Assessment and Plan: Patient on long-term anticoagulant use due to chronic AFib Patient INR on arrival 1.6-subtherapeutic INR goal between 2-3 Continue warfarin Monitor INR (8) Atrial fibrillation: Code(s): I48.91 - Unspecified atrial fibrillation Status: Acute Assessment and Plan: Chronic Rate controlled Continue warfarin Continue metoprolol Telemetry ordered (9) Chronic kidney disease, stage IV (severe): Code(s): N18.4 - Chronic kidney disease, stage 4 (severe) Status: Acute Assessment and Plan: Patient's creatinine seems to average in the low to mid 2s Creatinine arrival was 3 Continue to monitor Subjective Date/time seen: 06/13/22 07:58 Interval history: 06/13/22 81-year-old male with history of stroke,
[2022-06-13] MEDS: VITAMIN B COMPLEX CAPSULE 1 CAP PO (08:27)
[2022-06-13] MEDS: CYANOCOBALAMIN 1,000 MCG TABLET 1000 MCG PO (08:27)
[2022-06-13] MEDS: CHOLECALCIFEROL 1,000 UNITS TABLET 1000 UNITS PO (08:27)
[2022-06-13] MEDS: FUROSEMIDE 20 MG TABLET PO (08:27)
[2022-06-13] MEDS: METOPROLOL TARTRATE 25 MG TABLET PO ×2 (08:27→21:25)
[2022-06-13] MEDS: MUPIROCIN 2% OINT 22 GM TUBE 1 APPLIC EACH NARE ×3 (08:27→16:43)
[2022-06-13] MEDS: ASPIRIN 81 MG CHEWABLE TABLET PO (08:27)
[2022-06-13] MEDS: MAGNESIUM 13.5 MG TABLET (250 MG MAG GLUCONATE) PO (08:27)
[2022-06-13] MEDS: FERROUS SULFATE 324 MG TABLET PO ×2 (08:27→16:43)
[2022-06-13] MEDS: DOXYCYCLINE 100 MG/NS 100 ML 100 MG/100 ML BAG IVPB ×2 (08:32→20:31)
[2022-06-13] MEDS: IPRATROPIUM BR 0.02% INH SOLN 0.5 MG/2.5 ML VIAL INHALATION ×3 (09:10→21:03)
--- NOTE | 2022-06-13 11:16 | PCOTNOTE ---
Attempted OT evaluation this am; pt. refused stating he's not up for therapy at this time. Will attempt again as able.
--- NOTE | 2022-06-13 13:34 | PM.PNNEP ---
Progress Note: A&P Assessment and Plan (1) MANJIT (acute kidney injury): Code(s): N17.9 - Acute kidney failure, unspecified Status: Acute Assessment and Plan: etiology? possible CKD disease progression? infection? new CHF? altered hemodynamics follow-up renal ultrasound follow-up urine electrolytes, urine eosinophils and CPK Echo results noted possible component of cardiorenal syndrome given depressed EF monitor repeat labs and UOP (2) Chronic kidney disease, stage IV (severe): Code(s): N18.4 - Chronic kidney disease, stage 4 (severe) Status: Chronic Assessment and Plan: baseline creatinie runs ~ 2.1 - 2.6mg/dl presumably due to HTN, vascular disease, and age-related change (3) Shortness of breath: Code(s): R06.02 - Shortness of breath Status: Acute Assessment and Plan: presumably due to right pleural effusion Pulmonary recommendations noted follow-up on V/Q and CT of chest empiric antibiotics for infectious effusion follow respiratory status (4) Pleural effusion on right: Code(s): J90 - Pleural effusion, not elsewhere classified Status: Acute Assessment and Plan: s/p thoracentesis (~ 1000cc fluid removed) pleura fluid analysis noted on antibiotics follow-up on pleural fluid cytology (5) Atrial fibrillation: Code(s): I48.91 - Unspecified atrial fibrillation Status: Chronic Assessment and Plan: continue rate control strategy on anticoagulation Will continue to follow. Subjective Date/time seen: 06/13/22 13:34 Respiratory status as well as renal function seem about the same (no worse but no better); no apparent issues or problems voiced overnight or earlier this AM; states that he feels okay. Exam Narrative: General: elderly male in NAD Heart: normal S1 and S2; no rub Lungs: decreased throughout but more so at bases Abdomen: soft, nontender, nondistended, positive bowel sounds Extremities: no cyanosis or clubbing; no edema Skin: warm and dry Objective Data Vital Signs Vital Signs: Vital Signs Temp Pulse Resp BP Pulse Ox O2 Del Method 06/13/22 12:00 106 H 06/13/22 08:00 109 H 06/13/22 08:00 98 Room Air 06/13/22 09:12 109 H 20 06/13/22 08:27 109 H 06/13/22 06:17 98.1 F 109 H 18 126/70 98 Room Air 06/13/22 05:15 98.1 F 109 H 18 126/70 98 06/13/22 04:00 107 H 06/13/22 00:00 107 H 06/12/22 20:00 96 Room Air 06/12/22 21:42 70 16 06/12/22 21:28 97.9 F 103 H 20 131/67 96 06/12/22 20:00 107 H 06/12/22 20:52 97.9 F 105 H 16 110/57 L 93 Room Air 06/12/22 20:32 97.9 F 105 H 16 110/57 L 93 Room Air 06/12/22 20:02 105 H Intake/Output Intake/Output: Intake & Output 06/10/22 06/11/22 06/12/22 06/13/22 23:59 23:59 23:59 23:59 Intake Total 1550 1260 260 Output Total 1175 850 Balance 375 410 260 Meds/Results Medications: Active Medications Generic Name Dose Route Start Last Admin Trade Name Ann Marie PRN Reason Stop Dose Admin Acetaminophen 650 mg 06/12/22 09:00 06/13/22 07:43 Acetaminophen 325 Mg Tablet PO Not Given BID CALVIN Acetaminophen 650 mg 06/13/22 05:51 06/13/22 06:15 Acetaminophen 325 Mg Tablet PO 650 mg Q4H PRN Administration Mild Pain (1-3) or Fever Aspirin 81 mg 06/12/22 09:00 06/13/22 08:27 Aspirin 81 Mg Chewable Tablet PO 07/12/22 08:59 81 mg DAILY CALVIN Administration Cyanocobalamin 1,000 mcg 06/12/22 09:00 06/13/22 08:27 Cyanocobalamin 1,000 Mcg Tablet PO 07/12/22 08:59 1,000 mcg DAILY CALVIN Administration Ferrous Sulfate 324 mg 06/12/22 09:00 06/13/22 08:27 Ferrous Sulfate 324 Mg Tablet PO 324 mg BID CALVIN Administration Furosemide 20 mg 06/12/22 09:00 06/13/22 08:27 Furosemide 20 Mg Tablet PO 20 mg DAILY CALVIN Administration Home Med 0 each 06/12/22
--- NOTE | 2022-06-13 13:34 | P.PNNP_ITS ---
Progress Note: A&P Assessment and Plan (1) MANJIT (acute kidney injury): Code(s): N17.9 - Acute kidney failure, unspecified Status: Acute Assessment and Plan: * etiology? * possible CKD disease progression? * infection? * new CHF? * altered hemodynamics * follow-up renal ultrasound * follow-up urine electrolytes, urine eosinophils and CPK * Echo results noted * possible component of cardiorenal syndrome given depressed EF * monitor repeat labs and UOP (2) Chronic kidney disease, stage IV (severe): Code(s): N18.4 - Chronic kidney disease, stage 4 (severe) Status: Chronic Assessment and Plan: * baseline creatinie runs ~ 2.1 - 2.6mg/dl * presumably due to HTN, vascular disease, and age-related change (3) Shortness of breath: Code(s): R06.02 - Shortness of breath Status: Acute Assessment and Plan: * presumably due to right pleural effusion * Pulmonary recommendations noted * follow-up on V/Q and CT of chest * empiric antibiotics for infectious effusion * follow respiratory status (4) Pleural effusion on right: Code(s): J90 - Pleural effusion, not elsewhere classified Status: Acute Assessment and Plan: * s/p thoracentesis (~ 1000cc fluid removed) * pleura fluid analysis noted * on antibiotics * follow-up on pleural fluid cytology (5) Atrial fibrillation: Code(s): I48.91 - Unspecified atrial fibrillation Status: Chronic Assessment and Plan: * continue rate control strategy * on anticoagulation Will continue to follow. Subjective Date/time seen: 06/13/22 13:34 Respiratory status as well as renal function seem about the same (no worse but no better); no apparent issues or problems voiced overnight or earlier this AM; states that he feels okay. Exam Narrative: General: elderly male in NAD Heart: normal S1 and S2; no rub Lungs: decreased throughout but more so at bases Abdomen: soft, nontender, nondistended, positive bowel sounds Extremities: no cyanosis or clubbing; no edema Skin: warm and dry Objective Data Vital Signs Vital Signs: Vital Signs Temp Pulse Resp BP Pulse Ox O2 Del Method 06/13/22 12:00 106 H 06/13/22 08:00 109 H 06/13/22 08:00 98 Room Air 06/13/22 09:12 109 H 20 06/13/22 08:27 109 H 06/13/22 06:17 98.1 F 109 H 18 126/70 98 Room Air 06/13/22 05:15 98.1 F 109 H 18 126/70 98 06/13/22 04:00 107 H 06/13/22 00:00 107 H 06/12/22 20:00 96 Room Air 06/12/22 21:42 70 16 06/12/22 21:28 97.9 F 103 H 20 131/67 96 06/12/22 20:00 107 H 06/12/22 20:52 97.9 F 105 H 16 110/57 L 93 Room Air 06/12/22 20:32 97.9 F 105 H 16 110/57 L 93 Room Air 06/12/22 20:02 105 H Intake/Output Intake/Output: Intake & Output 06/10/22 06/11/22 06/12/22 06/13/22 23:59 23:59 23:59 23:59 Intake Total 1550 1260 260 Output Total 1175 850 Balance 375 410 260 Meds/Results Medications: Active Medications Generic Name Dose Route Start Last Admin Trade Name Freq PRN Reason Stop
[2022-06-13] MEDS: WARFARIN (*PBKC) 4 MG TABLET PO (16:44)
[2022-06-13] MEDS: SODIUM CHLORIDE 0.9% IV 500 ML 70 ML IV CONT (16:46)
--- NOTE | 2022-06-13 17:32 | PM.PNPUL ---
Progress Note: A&P Assessment and Plan (1) Lung malignancy: Code(s): C34.90 - Malignant neoplasm of unspecified part of unspecified bronchus or lung Status: Acute Assessment and Plan: Patient had early stage lung cancer in 09/24/2021 and in 10/2021 and received SBRT. ? CT and PET Imaging on 04/03/2022 showed a moderate right pleural effusion with no FDG pleural uptake, low level mediastinal lymph node uptake (unchanged), right oral activity but no lesions consistent with active metastatic disease. ? The patient does not have a medical oncologist.? overall in March Dr. San felt the patient's lung cancer was clinically stable. Currently the patient has a right pleural effusion status post thoracentesis demonstrating normal pH with 43% lymphocytes.? Cytology is pending and should be back on 06/15/2022. Chest CT - 06/12/22 Large right and small left pleural effusions. 2. Diffuse lung disease, likely a combination of pulmonary edema and pneumonia. 3. 2.1 cm nodule in right lung upper lobe, which may be primary bronchogenic carcinoma. Correlate with lung cancer biopsy and treatment history. 4. Moderate emphysema. Alternative etiologies of the right pleural effusion should be considered? and a perfusion scan has been ordered. ? Echocardiogram shows severely globally reduced EF of 20-25%, right ventricular chamber is normal, mildly reduced RV function, moderately enlarged left atrium, mildly enlarged right atrium, abnormal diastolic function, moderate aortic valve stenosis, moderate mitral valve regurgitation, moderate tricuspid regurgitation with severe pulmonary hypertension at a pressure of 109.? I have no prior echocardiograms for comparison. ? Will await the chemistries from the pleural fluid to see if this is a transudate versus an exudate. ? The chest x-ray she demonstrates no left pleural effusion and there may be mild peripheral vascular redistribution and congestion.? the patient does not appear grossly fluid overload.? I will check a BNP in the morning.? Patient has positive troponins and I would consider cardiology consult. Blood cultures from 06/10 x2 and 06/11 x 2 are no growth to date.? Patient? influenza, RSV and COVID RT PCR studies are negative. ? Patient is currently on ceftriaxone and doxycycline for possible community-acquired pneumonia (2) Pleural effusion on right: Code(s): J90 - Pleural effusion, not elsewhere classified Status: Acute Assessment and Plan: Patient has had a moderate pulmonary effusion dating back at least to his CT-PET on 04/03/[address] San. ? There is a small right pleural effusion on a CT scan from 12/10/2021. ? Chest x-ray on 03/30/2021 demonstrated no right pleural effusion. He had a thoracentesis with 1 L taken off, still has a significant amount remaining. He may feel better if he has a repeat thoracentesis for therapeutic restuls. Will discuss with him tomorrow. (3) COPD (chronic obstructive pulmonary disease): Code(s): J44.9 - Chronic obstructive pulmonary disease, unspecified Status: Acute Assessment and Plan: Patient has a 23 pack year history of tobacco use and states he quit in March of 2022. CT scan of the chest on 12/10/2021 demonstrates moderate? apical predominant centrilobular emphysema. ? I have no PFTs.? at baseline he tells me approximately 1 month ago he had no dyspnea on exertion or limitations from his respiratory issues. His saturation is above 90% on room air. His ABG Jun 11 7.41/29/65 on RA, a normal pH with respiratory alkalosis and borderline pO2. I will order 1 L/min O2 to assure that he doesn't drop saturation with sleep and exertion. Subjective Date/time seen: 06/13/22 17:32 Interval history: ESTABLISHED: 81-year-old man with a history o
[2022-06-13] MEDS: SIMVASTATIN 20 MG TABLET 40 MG PO (21:26)
[2022-06-14] VITALS (18 sets, daily range): BP systolic 108–129; BP diastolic 51–66; PULSE 80–113; RESP 14–20; TEMP 36.3–36.6; O2SAT 96–99
[2022-06-14] MEDS: IPRATROPIUM BR 0.02% INH SOLN 0.5 MG/2.5 ML VIAL INHALATION ×4 (03:48→21:13)
[2022-06-14 06:58] LABS: Hemoglobin 8.5 g/dL (14.0-18.0); Mean Corpuscular HGB Conc 31.5 g/dl (32-36); Mean Corpuscular Hemoglobin 35.9 pg (26-34); Mean Corpuscular Volume 113.9 fl (80-100); Platelet Count Result 187 k/mm3 (150-375); Red Blood Count 2.37 M/mm3 (4.6-6.20); Red Cell Distribution Width 18.8 % (11.5-14.5); White Blood Count 6.5 K/mm3 (4.5-10.0)
[2022-06-14 07:06] LABS: Prothrombin Time 21.6 Seconds (11.1-14.7)
[2022-06-14 07:18] LABS: Alanine Aminotransferase 40 U/L (6-50); Albumin Level 3.1 g/dL (3.5-5.1); Alkaline Phosphatase 175 U/L (38-126); Anion Gap 10 mmol/L (8-16); Aspartate Amino Transferase 72 U/L (17-59); Bilirubin,Total 1.3 mg/dL (0.2-1.3); Blood Urea Nitrogen 45 mg/dL (9-20); Carbon Dioxide 16 mmol/L (22-30); Chloride 107 mmol/L (98-107); Estimated CRCL calculation 15 ml/min; Estimated Glomerular Filt Rate 19; Glucose 90 mg/dL (65-110); Sodium 133 mmol/L (137-145)
--- NOTE | 2022-06-14 08:04 | P.PNIM_ITS ---
Progress Note: A&P Assessment and Plan (1) Shortness of breath: Code(s): R06.02 - Shortness of breath Status: Acute Assessment and Plan: The patient presented to the emergency department for evaluation of progressive dyspnea on exertion and weakness the last several days. He was tachypneic and tachycardic on arrival to the ED with stable oxygen saturations. * CXR revealed large R pleural effusion - Thoracentesis yeilded 1000mL of fluid * Hx of multiple malignancies * r/o PE - V/Q ordered due to pt creatinine of 20 * echo ordered * BNP ordered * Patient put on ceftriaxone and doxy for possible infectious pleural effusion * Cancer antigens pending * Patient not appear fluid overloaded on presentation patient was given 1 dose IV Lasix on 06/11/2022 * Continue patient's home Lasix to possibly help with pleural effusion * Will monitor kidney function while on Lasix. May have to DC if creatinine continues to rise. * Lactic acid 2.4 on arrival, repeat 1.8 * Echo results: EF 20-25% LVH, systolic function severly reduced, diastolic dysfunction, pacemaker present, severe pulmonary hypertension with systolic pressure of 109, severe aortic valve sclerosis, mild aortic valve regurg, moderate aortic valve stenosis * consult cardiology * Had a discussion with family about hospice. Family is open to hospice meeting. Care coordination consulted. (2) Pleural effusion on right: Code(s): J90 - Pleural effusion, not elsewhere classified Status: Acute Assessment and Plan: Status post thoracentesis * thoracentesis yeilded 1000mL of fluid * Pleural Fluid analysis revealed elevated RBCs normal pH and PMNs * pulmonology consulted * broad spectrum antibiotics given - ceftriaxone and doxy * echo ordered * 06/13/22 Lasix held due to patient's increasing creatinine * 06/14/2022 Lasix restarted due to crackles in right lung. Continue antibiotic therapy. (3) MANJIT (acute kidney injury): Code(s): N17.9 - Acute kidney failure, unspecified Status: Acute Assessment and Plan: On arrival patient's creatinine found to be elevated at 3 * From recent hospital stays patient's creatinine seems to be between the low 2s to mid 2s * Patient's fluids discontinued due to risk of fluid overload * Consult nephrology (4) Reduced ejection fraction concurrent with and due to acute heart failure: Code(s): I50.21 - Acute systolic (congestive) heart failure Status: Acute Assessment and Plan: Patient did not have heart failure diagnosis before admission into the hospital. Had shortness of breath on admission with large right pleural effusion. * Echo ordered due to SBO and pleural effusion * Echo results: EF 20-25% LVH, systolic function severly reduced, diastolic dysfunction, pacemaker present, severe pulmonary hypertension with systolic pressure of 109, severe aortic valve sclerosis, mild aortic valve regurg, moderate aortic valve stenosis. * Patient has had sustained tachycardia around 110 * Have discussed with family that pleural effusion could be from lung cancer or heart failure * Cardiology consulted and following patient. * Patient's Lasix held on 06/13/2022 due to increasing creatinine. * Patient's Lasix restarted 06/14/2022 due to crackles heard in the right lung. (5) Elevated troponin: Code(s): R77.8 - Other specified abnormalities of plasma proteins Status: Acute Assessment and Plan: troponin mildly elevated but remain flat - continue to monitor (6) Macrocytic anemia: Code(s): D53.9 - Nutritional anemia, unspecified Status: Acute
--- NOTE | 2022-06-14 08:04 | PM.IMPN ---
Progress Note: A&P Assessment and Plan (1) Shortness of breath: Code(s): R06.02 - Shortness of breath Status: Acute Assessment and Plan: The patient presented to the emergency department for evaluation of progressive dyspnea on exertion and weakness the last several days. He was tachypneic and tachycardic on arrival to the ED with stable oxygen saturations. CXR revealed large R pleural effusion - Thoracentesis yeilded 1000mL of fluid Hx of multiple malignancies r/o PE - V/Q ordered due to pt creatinine of 20 echo ordered BNP ordered Patient put on ceftriaxone and doxy for possible infectious pleural effusion Cancer antigens pending Patient not appear fluid overloaded on presentation patient was given 1 dose IV Lasix on 06/11/2022 Continue patient's home Lasix to possibly help with pleural effusion Will monitor kidney function while on Lasix. May have to DC if creatinine continues to rise. Lactic acid 2.4 on arrival, repeat 1.8 Echo results: EF 20-25% LVH, systolic function severly reduced, diastolic dysfunction, pacemaker present, severe pulmonary hypertension with systolic pressure of 109, severe aortic valve sclerosis, mild aortic valve regurg, moderate aortic valve stenosis consult cardiology Had a discussion with family about hospice. Family is open to hospice meeting. Care coordination consulted. (2) Pleural effusion on right: Code(s): J90 - Pleural effusion, not elsewhere classified Status: Acute Assessment and Plan: Status post thoracentesis thoracentesis yeilded 1000mL of fluid Pleural Fluid analysis revealed elevated RBCs normal pH and PMNs pulmonology consulted broad spectrum antibiotics given - ceftriaxone and doxy echo ordered 06/13/22 Lasix held due to patient's increasing creatinine 06/14/2022 Lasix restarted due to crackles in right lung. Continue antibiotic therapy. (3) MANJIT (acute kidney injury): Code(s): N17.9 - Acute kidney failure, unspecified Status: Acute Assessment and Plan: On arrival patient's creatinine found to be elevated at 3 From recent hospital stays patient's creatinine seems to be between the low 2s to mid 2s Patient's fluids discontinued due to risk of fluid overload Consult nephrology (4) Reduced ejection fraction concurrent with and due to acute heart failure: Code(s): I50.21 - Acute systolic (congestive) heart failure Status: Acute Assessment and Plan: Patient did not have heart failure diagnosis before admission into the hospital. Had shortness of breath on admission with large right pleural effusion. Echo ordered due to SBO and pleural effusion Echo results: EF 20-25% LVH, systolic function severly reduced, diastolic dysfunction, pacemaker present, severe pulmonary hypertension with systolic pressure of 109, severe aortic valve sclerosis, mild aortic valve regurg, moderate aortic valve stenosis. Patient has had sustained tachycardia around 110 Have discussed with family that pleural effusion could be from lung cancer or heart failure Cardiology consulted and following patient. Patient's Lasix held on 06/13/2022 due to increasing creatinine. Patient's Lasix restarted 06/14/2022 due to crackles heard in the right lung. (5) Elevated troponin: Code(s): R77.8 - Other specified abnormalities of plasma proteins Status: Acute Assessment and Plan: troponin mildly elevated but remain flat - continue to monitor (6) Macrocytic anemia: Code(s): D53.9 - Nutritional anemia, unspecified Status: Acute Assessment and Plan: Chronic continue ferrous sulfate and b12 (7) Coronary artery disease: Qualifiers: Associated angina: without angina Coronary Disease-Associated Artery/Lesion type: unspecified vessel or lesion type [place] vs. transplanted heart: [place] heart Qualified Code(s): I25.10 - Atherosclerotic heart disease of [place] coronary artery witho
[2022-06-14] MEDS: ACETAMINOPHEN 325 MG TABLET 650 MG PO ×2 (08:16→17:47)
[2022-06-14] MEDS: CYANOCOBALAMIN 1,000 MCG TABLET 1000 MCG PO (08:16)
[2022-06-14] MEDS: ASPIRIN 81 MG CHEWABLE TABLET PO (08:16)
[2022-06-14] MEDS: FERROUS SULFATE 324 MG TABLET PO (08:16)
[2022-06-14] MEDS: MAGNESIUM 13.5 MG TABLET (250 MG MAG GLUCONATE) PO (08:16)
[2022-06-14] MEDS: CHOLECALCIFEROL 1,000 UNITS TABLET 1000 UNITS PO (08:16)
[2022-06-14] MEDS: VITAMIN B COMPLEX CAPSULE 1 CAP PO (08:16)
[2022-06-14] MEDS: METOPROLOL TARTRATE 25 MG TABLET PO ×2 (08:16→21:42)
[2022-06-14] MEDS: DOXYCYCLINE 100 MG/NS 100 ML 100 MG/100 ML BAG IVPB ×2 (08:17→21:52)
[2022-06-14] MEDS: MUPIROCIN 2% OINT 22 GM TUBE 1 APPLIC EACH NARE ×3 (08:18→17:48)
--- NOTE | 2022-06-14 09:37 | P.PNNP_ITS ---
Progress Note: A&P Assessment and Plan (1) MANJIT (acute kidney injury): Code(s): N17.9 - Acute kidney failure, unspecified Status: Acute Assessment and Plan: * etiology? * possible CKD disease progression? * infection? * new CHF? * altered hemodynamics * follow-up on renal ultrasound * follow-up urine electrolytes, urine eosinophils and CPK * Echo results noted * possible component of cardiorenal syndrome given depressed EF * monitor repeat labs and UOP (2) Chronic kidney disease, stage IV (severe): Code(s): N18.4 - Chronic kidney disease, stage 4 (severe) Status: Chronic Assessment and Plan: * baseline creatinie runs ~ 2.1 - 2.6mg/dl * presumably due to HTN, vascular disease, and age-related change (3) Shortness of breath: Code(s): R06.02 - Shortness of breath Status: Acute Assessment and Plan: * presumably due to right pleural effusion * Pulmonary recommendations noted * follow-up on V/Q and CT of chest * empiric antibiotics for infectious effusion * follow respiratory status (4) Pleural effusion on right: Code(s): J90 - Pleural effusion, not elsewhere classified Status: Acute Assessment and Plan: * s/p thoracentesis (~ 1000cc fluid removed) * pleura fluid analysis noted * on antibiotics * follow-up on pleural fluid cytology (5) Atrial fibrillation: Code(s): I48.91 - Unspecified atrial fibrillation Status: Chronic Assessment and Plan: * continue rate control strategy * on anticoagulation Will continue to follow. Subjective Date/time seen: 06/14/22 09:37 Appears to be feeling a bit better although still has some shortness of breath with exertional activity; Echo results noted (depressed EF present) and Cardiolo gy consulted for further assessment; renal function appears stable (but not back to baseline). Exam Narrative: General: elderly male in NAD Heart: normal S1 and S2; no rub Lungs: decreased throughout but more so at bases Abdomen: soft, nontender, nondistended, positive bowel sounds Extremities: no cyanosis or clubbing; no edema Skin: warm and dry Objective Data Vital Signs Vital Signs: Vital Signs Temp Pulse Resp BP Pulse Ox O2 Del Method 06/14/22 08:37 91 14 06/14/22 08:29 99 Room Air 06/14/22 08:25 93 14 06/14/22 08:16 110 H 06/14/22 05:41 97.4 F L 110 H 20 122/58 L 96 06/14/22 04:00 110 H 06/14/22 03:49 80 14 06/14/22 00:00 107 H 06/13/22 22:00 97.5 F L 112 H 20 118/59 L 97 06/13/22 20:00 111 H 06/13/22 21:25 110 H 06/13/22 21:05 80 16 06/13/22 19:45 100 Room Air 06/13/22 14:20 99 18 06/13/22 14:06 97 20 06/13/22 16:00 111 H 06/13/22 15:57 Room Air 06/13/22 14:00 96.7 F L 111 H 20 124/64 100 06/13/22 12:00 106 H Intake/Output Intake/Output: Intake & Output 06/11/22 06/12/22 06/13/22 06/14/22 23:59 23:59 23:59 23:59 Intake Total 1550 1260 730 200 Output Total 1175 850 400 300 Balance 375 410 330 -100 Meds/Results Medications:
--- NOTE | 2022-06-14 09:37 | PM.PNNEP ---
Progress Note: A&P Assessment and Plan (1) MANJIT (acute kidney injury): Code(s): N17.9 - Acute kidney failure, unspecified Status: Acute Assessment and Plan: etiology? possible CKD disease progression? infection? new CHF? altered hemodynamics follow-up on renal ultrasound follow-up urine electrolytes, urine eosinophils and CPK Echo results noted possible component of cardiorenal syndrome given depressed EF monitor repeat labs and UOP (2) Chronic kidney disease, stage IV (severe): Code(s): N18.4 - Chronic kidney disease, stage 4 (severe) Status: Chronic Assessment and Plan: baseline creatinie runs ~ 2.1 - 2.6mg/dl presumably due to HTN, vascular disease, and age-related change (3) Shortness of breath: Code(s): R06.02 - Shortness of breath Status: Acute Assessment and Plan: presumably due to right pleural effusion Pulmonary recommendations noted follow-up on V/Q and CT of chest empiric antibiotics for infectious effusion follow respiratory status (4) Pleural effusion on right: Code(s): J90 - Pleural effusion, not elsewhere classified Status: Acute Assessment and Plan: s/p thoracentesis (~ 1000cc fluid removed) pleura fluid analysis noted on antibiotics follow-up on pleural fluid cytology (5) Atrial fibrillation: Code(s): I48.91 - Unspecified atrial fibrillation Status: Chronic Assessment and Plan: continue rate control strategy on anticoagulation Will continue to follow. Subjective Date/time seen: 06/14/22 09:37 Appears to be feeling a bit better although still has some shortness of breath with exertional activity; Echo results noted (depressed EF present) and Cardiology consulted for further assessment; renal function appears stable (but not back to baseline). Exam Narrative: General: elderly male in NAD Heart: normal S1 and S2; no rub Lungs: decreased throughout but more so at bases Abdomen: soft, nontender, nondistended, positive bowel sounds Extremities: no cyanosis or clubbing; no edema Skin: warm and dry Objective Data Vital Signs Vital Signs: Vital Signs Temp Pulse Resp BP Pulse Ox O2 Del Method 06/14/22 08:37 91 14 06/14/22 08:29 99 Room Air 06/14/22 08:25 93 14 06/14/22 08:16 110 H 06/14/22 05:41 97.4 F L 110 H 20 122/58 L 96 06/14/22 04:00 110 H 06/14/22 03:49 80 14 06/14/22 00:00 107 H 06/13/22 22:00 97.5 F L 112 H 20 118/59 L 97 06/13/22 20:00 111 H 06/13/22 21:25 110 H 06/13/22 21:05 80 16 06/13/22 19:45 100 Room Air 06/13/22 14:20 99 18 06/13/22 14:06 97 20 06/13/22 16:00 111 H 06/13/22 15:57 Room Air 06/13/22 14:00 96.7 F L 111 H 20 124/64 100 06/13/22 12:00 106 H Intake/Output Intake/Output: Intake & Output 06/11/22 06/12/22 06/13/22 06/14/22 23:59 23:59 23:59 23:59 Intake Total 1550 1260 730 200 Output Total 1175 850 400 300 Balance 375 410 330 -100 Meds/Results Medications: Active Medications Generic Name Dose Route Start Last Admin Trade Name Christianoq PRN Reason Stop Dose Admin Acetaminophen 650 mg 06/12/22 09:00 06/14/22 08:16 Acetaminophen 325 Mg Tablet PO 650 mg BID CALVIN Administration Acetaminophen 650 mg 06/13/22 05:51 06/13/22 06:15 Acetaminophen 325 Mg Tablet PO 650 mg Q4H PRN Administration Mild Pain (1-3) or Fever Aspirin 81 mg 06/12/22 09:00 06/14/22 08:16 Aspirin 81 Mg Chewable Tablet PO 07/12/22 08:59 81 mg DAILY CALVIN Administration Cyanocobalamin 1,000 mcg 06/12/22 09:00 06/14/22 08:16 Cyanocobalamin 1,000 Mcg Tablet PO 07/12/22 08:59 1,000 mcg DAILY CALVIN Administration Ferrous Sulfate 324 mg 06/12/22 09:00 06/14/22 08:16 Ferrous Sulfate 324 Mg Tablet PO 324 mg BID CALVIN Administration Furosemide 20 mg
[2022-06-14] MEDS: polyethylene glycoL 3350 17 GM POWD.PACK PO (11:06)
--- NOTE | 2022-06-14 12:47 | PM.CNCAR ---
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 Patient admitted from assisted living facility with worsening shortness of breath and generalized weakness. He is in acute on chronic CHF with reduced ejection fraction, current LVEF 20-25%; moderate , moderate MR, severe pulmonary hypertension. Patient is status post right thoracentesis with reaccumulation of fluid. - gentle diuresis as needed. Avoid aggressive diuresis and volume depletion, patient is preload dependent due to severe pulmonary hypertension. - Diagnostic/therapeutic thoracentesis. Pulmonology following. - patient has multiple medical problems as described above and is currently DNR. He is being evaluated for hospice care. (2) Persistent atrial fibrillation: Code(s): I48.19 - Other persistent atrial fibrillation Status: Acute Assessment and Plan: Currently rate slightly elevated in 100s, on metoprolol. Previously carvedilol switched to metoprolol based on outside cardiology notes due to lower blood pressure. Continue metoprolol. Anticoagulation with warfarin. Current INR 2.0. History of Present Illness History of Present Illness Consult date/time: 06/14/22 12:47 Reason For Visit: Right Pleural Effusion/Dehydration/Elevated Trop/T Narrative: DATE OF CONSULT: 06/14/2022 REASON FOR CONSULT: CHF REQUESTING PHYSICIAN:Sugey Chou PA-C CHIEF COMPLAINT: shortness of breath HPI: 81-year-old male with multiple medical problems including ischemic cardiomyopathy/CHF with reduced ejection fraction, history of primary prevention ICD placement; CAD, history of multiple PCI/stent placements of LAD and RCA at outside hospitals -intervention report not available; persistent atrial fibrillation, CKD, chronic macrocytic anemia, 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 Patient follows up with Dr. Gross at [facility] for his cardiovascular care. I reviewed [facility] medical records. Based on notes, echo from 02/27/2021 reportedly showed LVEF 47%. Patient brought to [facility] on 06/11/2022 via ambulance from assisted living facility with worsening shortness of breath and generalized weakness. He has limited mobility at baseline and uses walker for ambulation. Patient denies chest pain, palpitation, dizziness. He has generalized weakness. Denies any recent ICD shocks. Review of medical records indicate that his warfarin was changed to 1 of the direct oral anticoagulants due to subtherapeutic INR, however, his outpatient medication list still shows warfarin. EKG on my personal evaluation showed atrial fibrillation with RVR, ventricular rate 111 beats per minute, delayed R-wave progression, ST-T abnormality. Echocardiogram from 06/12/2022 reports moderate LV enlargement, severe global LV systolic dysfunction, EF 20-25%, moderate MR, moderate aortic stenosis, moderate TR, severe pulmonary hypertension, RVSP 109 mmHg. Troponins minimally elevated and [place] [id number]. Chest x-ray at presentation showed Moderate to large right pleural effusion. on 06/11/2022, patient underwent ultrasound-guided right thoracentesis yielding 1000 mL of ariel-colored fluid. V/Q scan Nondiagnostic (intermediate probability for pu
[2022-06-14 13:05] LABS: Albumin Pleural Fluid 1.3 g/dL
--- NOTE | 2022-06-14 16:23 | PM.PNPUL ---
Progress Note: A&P Assessment and Plan (1) Lung malignancy: Code(s): C34.90 - Malignant neoplasm of unspecified part of unspecified bronchus or lung Status: Acute Assessment and Plan: Patient had early stage lung cancer in 09/24/2021 and in 10/2021 and received SBRT. ? CT and PET Imaging on 04/03/2022 showed a moderate right pleural effusion with no FDG pleural uptake, low level mediastinal lymph node uptake (unchanged), right oral activity but no lesions consistent with active metastatic disease. ? The patient does not have a medical oncologist.? overall in March Dr. San felt the patient's lung cancer was clinically stable. Currently the patient has a right pleural effusion status post thoracentesis demonstrating normal pH with 43% lymphocytes.? Cytology is pending and should be back on 06/15/2022. Chest CT - 06/12/22 Large right and small left pleural effusions. 2. Diffuse lung disease, likely a combination of pulmonary edema and pneumonia. 3. 2.1 cm nodule in right lung upper lobe, which may be primary bronchogenic carcinoma. Correlate with lung cancer biopsy and treatment history. 4. Moderate emphysema. Alternative etiologies of the right pleural effusion should be considered? and a perfusion scan has been ordered. ? Echocardiogram shows severely globally reduced EF of 20-25%, right ventricular chamber is normal, mildly reduced RV function, moderately enlarged left atrium, mildly enlarged right atrium, abnormal diastolic function, moderate aortic valve stenosis, moderate mitral valve regurgitation, moderate tricuspid regurgitation with severe pulmonary hypertension at a pressure of 109.? I have no prior echocardiograms for comparison. ? Will await the chemistries from the pleural fluid to see if this is a transudate versus an exudate. ? The chest x-ray she demonstrates no left pleural effusion and there may be mild peripheral vascular redistribution and congestion.? the patient does not appear grossly fluid overload.? I will check a BNP in the morning.? Patient has positive troponins and I would consider cardiology consult. Blood cultures from 06/10 x2 and 06/11 x 2 are no growth to date.? Patient? influenza, RSV and COVID RT PCR studies are negative. ? Patient is currently on ceftriaxone and doxycycline for possible community-acquired pneumonia (2) Pleural effusion on right: Code(s): J90 - Pleural effusion, not elsewhere classified Status: Acute Assessment and Plan: Patient has had a moderate pulmonary effusion dating back at least to his CT-PET on 04/03/[address] San. ? There is a small right pleural effusion on a CT scan from 12/10/2021. ? Chest x-ray on 03/30/2021 demonstrated no right pleural effusion. He had a thoracentesis with 1 L taken off, still has a significant amount remaining. 06/14/22 - He may feel better if he has a repeat thoracentesis for therapeutic results. He is agreeable to repeat thoracentesis. Stop warfarin, give 5 mg oral vit K, repeat PT tomorrow, and if this is low enough, repeat thoracentesis for therapeutic benefit. (3) COPD (chronic obstructive pulmonary disease): Code(s): J44.9 - Chronic obstructive pulmonary disease, unspecified Status: Acute Assessment and Plan: Patient has a 23 pack year history of tobacco use and states he quit in March of 2022. CT scan of the chest on 12/10/2021 demonstrates moderate? apical predominant centrilobular emphysema. ? I have no PFTs.? at baseline he tells me approximately 1 month ago he had no dyspnea on exertion or limitations from his respiratory issues. His saturation is above 90% on room air. His ABG Jun 11 7.41/29/65 on RA, a normal pH with respiratory alkalosis and borderline pO2. I ordered O2 1 L , however he did not get O2. Plan
[2022-06-14] MEDS: PHYTONADIONE 5 MG TABLET PO (17:48)
[2022-06-14] MEDS: SIMVASTATIN 20 MG TABLET 40 MG PO (21:42)
[2022-06-15] VITALS (10 sets, daily range): BP systolic 119; BP diastolic 62; PULSE 89–110; RESP 16–18; TEMP 36.2–36.3; O2SAT 94–98
--- NOTE | 2022-06-15 03:47 | PCRCNOTE ---
Window of time for administration has passed. See next scheduled administration.
[2022-06-15] MEDS: polyethylene glycoL 3350 17 GM POWD.PACK PO (05:35)
[2022-06-15 06:55] LABS: Hematocrit 29.8 % (42.0-52.0); Hemoglobin 9.1 g/dL (14.0-18.0); Mean Corpuscular HGB Conc 30.5 g/dl (32-36); Mean Corpuscular Hemoglobin 36.1 pg (26-34); Mean Corpuscular Volume 118.3 fl (80-100); Mean Platelet Volume 10.3 fl (7.4-10.4); Platelet Count Result 200 k/mm3 (150-375); Red Blood Count 2.52 M/mm3 (4.6-6.20); Red Cell Distribution Width 19.5 % (11.5-14.5)
[2022-06-15 07:01] LABS: Alanine Aminotransferase 56 U/L (6-50); Albumin Level 3.4 g/dL (3.5-5.1); Alkaline Phosphatase 167 U/L (38-126); Anion Gap 13 mmol/L (8-16); Aspartate Amino Transferase 99 U/L (17-59); Bilirubin,Total 1.6 mg/dL (0.2-1.3); Blood Urea Nitrogen 47 mg/dL (9-20); Calcium 8.4 mg/dL (8.4-10.2); Carbon Dioxide 16 mmol/L (22-30); Chloride 106 mmol/L (98-107); Creatine Kinase 74 U/L (55-170); Estimated CRCL calculation 16 ml/min; Estimated Glomerular Filt Rate 19; Glucose 91 mg/dL (65-110); Potassium 4.9 mmol/L (3.4-5.0); Sodium 135 mmol/L (137-145)
[2022-06-15 07:06] LABS: INR 2.4; Prothrombin Time 25.5 Seconds (11.1-14.7)
--- NOTE | 2022-06-15 09:52 | PM.PNCARD ---
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 Patient admitted from assisted living facility with worsening shortness of breath and generalized weakness. He is in acute on chronic CHF with reduced ejection fraction, current LVEF 20-25%; moderate , moderate MR, severe pulmonary hypertension. Patient is status post right thoracentesis with reaccumulation of fluid. - gentle diuresis as needed. Avoid aggressive diuresis and volume depletion, patient is preload dependent due to severe pulmonary hypertension. - Diagnostic/therapeutic thoracentesis. Pulmonology following. - patient has multiple medical problems as described above Furosemide 20 mg IV x1. (2) Persistent atrial fibrillation: Code(s): I48.19 - Other persistent atrial fibrillation Status: Acute Assessment and Plan: Currently rate slightly elevated in 100s, on metoprolol. Previously carvedilol switched to metoprolol based on outside cardiology notes due to lower blood pressure. Continue metoprolol. Anticoagulation with warfarin. Current INR 2.0. (3) MANJIT (acute kidney injury): Code(s): N17.9 - Acute kidney failure, unspecified Status: Acute Assessment and Plan: No significant improvement (4) Anticoagulant long-term use: Code(s): Z79.01 - [facility] (current) use of anticoagulants Status: Acute Assessment and Plan: will hold anticoagulation in case thoracentesis is planned Time Spent With Patient Time: 40 minutes were spent with the patient as well the patient's family discussing his multitude of health problems examining the patient and formulating a potential plan examining his chart. Time with patient: Greater than 35 minutes Subjective Date/time seen: 06/15/22 09:52 Interval history: ESTABLISHED: 81-year-old man with a history of lung cancer diagnosed 09/24/2021, skin cancer status post radiation treatment to his chest and head completed 12 08/24/2021, oral cancer status post? laser resection, chronic renal insufficiency,? CVA, coronary artery disease, and atrial fibrillation on warfarin. He is seen in follow up for lung cancer nad a right pleural effusion. date of service 06/15/2022: Conversation with hospice today. At this point they are not willing to commit to hospice at this stage. He is short of breath with talking. No chest pain. No significant swelling. 06/13/22 - LE Dopplers negative. 06/12/[address] = Large right and small left pleural effusions. 2. Diffuse lung disease, likely a combination of pulmonary edema and pneumonia. 3. 2.1 cm nodule in right lung upper lobe, which may be primary bronchogenic carcinoma. Correlate with lung cancer biopsy and treatment history. 4. Moderate emphysema. DATA: 06/12/2022 Echo Summary ? 1. Complete two-dimensional, color flow and Doppler transthoracic echocardiogram is performed. ? 2. Left ventricular chamber dimension is moderately enlarged. ? 3. Left ventricular systolic function is severely globally reduced, estimated at 20-25%. ? 4. The left ventricular diastolic function is abnormal. ? 5. E/e' 10 is mildly elevated. ? 6. Global longitudinal strain is abnormal at -8.1%. ? 7. Right ventricular systolic function is mildly reduced and with abnormal TAPSE 1.5 cm. ? 8. Linear artifact in right ventricle suggestive of catheter(s), pacemaker
[2022-06-15] MEDS: METOPROLOL TARTRATE 25 MG TABLET PO (09:57)
[2022-06-15] MEDS: CHOLECALCIFEROL 1,000 UNITS TABLET 1000 UNITS PO (09:57)
[2022-06-15] MEDS: VITAMIN B COMPLEX CAPSULE 1 CAP PO (09:57)
[2022-06-15] MEDS: CYANOCOBALAMIN 1,000 MCG TABLET 1000 MCG PO (09:57)
[2022-06-15] MEDS: ASPIRIN 81 MG CHEWABLE TABLET PO (09:57)
[2022-06-15] MEDS: MAGNESIUM 13.5 MG TABLET (250 MG MAG GLUCONATE) PO (09:57)
[2022-06-15] MEDS: ACETAMINOPHEN 325 MG TABLET 650 MG PO (09:57)
[2022-06-15] MEDS: DOXYCYCLINE 100 MG/NS 100 ML 100 MG/100 ML BAG IVPB (09:58)
--- NOTE | 2022-06-15 10:33 | PCRCNOTE ---
Window of time for administration has passed. See next scheduled administration.
[2022-06-15] MEDS: MUPIROCIN 2% OINT 22 GM TUBE 1 APPLIC EACH NARE ×3 (10:48→15:59)
[2022-06-15] MEDS: FUROSEMIDE INJ 40 MG/4 ML VIAL 20 MG IV PUSH (11:07)
--- NOTE | 2022-06-15 11:43 | PM.PNPUL ---
Progress Note: A&P Assessment and Plan (1) Lung malignancy: Code(s): C34.90 - Malignant neoplasm of unspecified part of unspecified bronchus or lung Status: Acute Assessment and Plan: Patient had early stage lung cancer in 09/24/2021 and in 10/2021 and received SBRT. ? CT and PET Imaging on 04/03/2022 showed a moderate right pleural effusion with no FDG pleural uptake, low level mediastinal lymph node uptake (unchanged), right oral activity but no lesions consistent with active metastatic disease. ? The patient does not have a medical oncologist.? overall in March Dr. San felt the patient's lung cancer was clinically stable. Currently the patient has a right pleural effusion status post thoracentesis demonstrating normal pH with 43% lymphocytes.? Cytology is pending and should be back on 06/15/2022. Chest CT - 06/12/22 Large right and small left pleural effusions. 2. Diffuse lung disease, likely a combination of pulmonary edema and pneumonia. 3. 2.1 cm nodule in right lung upper lobe, which may be primary bronchogenic carcinoma. Correlate with lung cancer biopsy and treatment history. 4. Moderate emphysema. Alternative etiologies of the right pleural effusion should be considered? and a perfusion scan has been ordered. ? Echocardiogram shows severely globally reduced EF of 20-25%, right ventricular chamber is normal, mildly reduced RV function, moderately enlarged left atrium, mildly enlarged right atrium, abnormal diastolic function, moderate aortic valve stenosis, moderate mitral valve regurgitation, moderate tricuspid regurgitation with severe pulmonary hypertension at a pressure of 109.? I have no prior echocardiograms for comparison. ? Will await the chemistries from the pleural fluid to see if this is a transudate versus an exudate. ? The chest x-ray she demonstrates no left pleural effusion and there may be mild peripheral vascular redistribution and congestion.? the patient does not appear grossly fluid overload.? I will check a BNP in the morning.? Patient has positive troponins and I would consider cardiology consult. Blood cultures from 06/10 x2 and 06/11 x 2 are no growth to date.? Patient? influenza, RSV and COVID RT PCR studies are negative. ? Patient is currently on ceftriaxone and doxycycline for possible community-acquired pneumonia 06/15 Patient remained short of breath with talking and with any exertion. Currently is on room air with saturations 98%. White blood cell 9.0, creatinine 3.10. Chest x-ray demonstrates reaccumulation of his large right pleural effusion now and encompasing approximately 75% of his right hemithorax and post thoracentesis on 06/11 it was encompassing approximately 45% of the right hemithorax. Discussed with daughter and son at the bedside. INR 2.4 unable to proceed with thoracentesis today. If continued treatment is wished for INR should be corrected and patient should undergo a thoracentesis on the right lung. He would ultimately need transfer to higher level of care facility to be evaluated by thoracic surgery for possible VATS with pleurodesis as he has reaccumulated the right pleural effusion since 06/11/2022. I spoke with the son and the daughter as well as the patient and their discussions regarding continued care versus hospice. (2) Pleural effusion on right: Code(s): J90 - Pleural effusion, not elsewhere classified Status: Acute Assessment and Plan: Patient has had a moderate pulmonary effusion dating back at least to his CT-PET on 04/03/[address] San. ? There is a small right pleural effusion on a CT scan from 12/10/2021. ? Chest x-ray on 03/30/2021 demonstrated no right pleural effusion. He had a thoracentesis with 1 L taken off, still has a significant amount remaining. 06/14/22 - He may feel better if he has a repeat thoracentesis for therapeutic results. He is agreeable to repeat thoracentesis. Sto
--- NOTE | 2022-06-15 12:42 | P.PNNP_ITS ---
Progress Note: A&P Assessment and Plan (1) MANJIT (acute kidney injury): Code(s): N17.9 - Acute kidney failure, unspecified Status: Acute Assessment and Plan: * etiology? * possible CKD disease progression? * infection? * new CHF? * altered hemodynamics * evaluation noted: * renal ultrasound c/w with CKD * urine electrolytes prerenal (likely a manifestion of cardiac function) * CPK normal * urine eosinophils negative * Echo results noted * possible component of cardiorenal syndrome given depressed EF * monitor repeat labs and UOP (2) Chronic kidney disease, stage IV (severe): Code(s): N18.4 - Chronic kidney disease, stage 4 (severe) Status: Chronic Assessment and Plan: * baseline creatinie runs ~ 2.1 - 2.6mg/dl * presumably due to HTN, vascular disease, and age-related change (3) Shortness of breath: Code(s): R06.02 - Shortness of breath Status: Acute Assessment and Plan: * presumably due to right pleural effusion * Pulmonary recommendations noted * V/Q and CT of chest results noted * empiric antibiotics for suspected infectious effusion * follow respiratory status (4) Pleural effusion on right: Code(s): J90 - Pleural effusion, not elsewhere classified Status: Acute Assessment and Plan: * s/p thoracentesis (~ 1000cc fluid removed) * pleura fluid analysis noted * on antibiotics * follow-up on pleural fluid cytology (5) Atrial fibrillation: Code(s): I48.91 - Unspecified atrial fibrillation Status: Chronic Assessment and Plan: * continue rate control strategy * on anticoagulation Will continue to follow. Subjective Date/time seen: 06/15/22 12:42 He is on room air with good oxygen saturations but still feels short of breath appears to have conversational dyspnea at this time; was scheduled for another thoracentesis but his INR is too high. Exam Narrative: General: elderly male in NAD Heart: normal S1 and S2; no rub Lungs: decreased throughout but more so at bases Abdomen: soft, nontender, nondistended, positive bowel sounds Extremities: no cyanosis or clubbing; no edema Skin: warm and dry Objective Data Vital Signs Vital Signs: Vital Signs Temp Pulse Resp BP Pulse Ox O2 Del Method 06/15/22 12:00 101 H 06/15/22 08:00 103 H 06/15/22 08:00 98 Room Air 06/15/22 09:57 104 H 06/15/22 04:00 106 H 06/15/22 00:00 110 H 06/14/22 20:00 112 H 06/15/22 05:38 97.2 F L 104 H 16 98 06/14/22 21:42 88 06/14/22 21:17 97.6 F 112 H 20 108/51 L 98 06/14/22 21:21 88 18 06/14/22 21:13 84 16 06/14/22 16:00 111 H 06/14/22 14:00 97.8 F 111 H 18 129/66 99 06/14/22 13:11 80 14 Intake/Output Intake/Output: Intake & Output 06/12/22 06/13/22 06/14/22 06/15/22 23:59 23:59 23:59 23:59 Intake Total 1260 730 700 200 Output Total 850 400 300 Balance 410 330 400 200 Meds/Results Medications: Active Medications Generic Name Dose Route Start Last Admin Trade Name Ann Marie Mcraea
--- NOTE | 2022-06-15 12:42 | PM.PNNEP ---
Progress Note: A&P Assessment and Plan (1) MANJIT (acute kidney injury): Code(s): N17.9 - Acute kidney failure, unspecified Status: Acute Assessment and Plan: etiology? possible CKD disease progression? infection? new CHF? altered hemodynamics evaluation noted: renal ultrasound c/w with CKD urine electrolytes prerenal (likely a manifestion of cardiac function) CPK normal urine eosinophils negative Echo results noted possible component of cardiorenal syndrome given depressed EF monitor repeat labs and UOP (2) Chronic kidney disease, stage IV (severe): Code(s): N18.4 - Chronic kidney disease, stage 4 (severe) Status: Chronic Assessment and Plan: baseline creatinie runs ~ 2.1 - 2.6mg/dl presumably due to HTN, vascular disease, and age-related change (3) Shortness of breath: Code(s): R06.02 - Shortness of breath Status: Acute Assessment and Plan: presumably due to right pleural effusion Pulmonary recommendations noted V/Q and CT of chest results noted empiric antibiotics for suspected infectious effusion follow respiratory status (4) Pleural effusion on right: Code(s): J90 - Pleural effusion, not elsewhere classified Status: Acute Assessment and Plan: s/p thoracentesis (~ 1000cc fluid removed) pleura fluid analysis noted on antibiotics follow-up on pleural fluid cytology (5) Atrial fibrillation: Code(s): I48.91 - Unspecified atrial fibrillation Status: Chronic Assessment and Plan: continue rate control strategy on anticoagulation Will continue to follow. Subjective Date/time seen: 06/15/22 12:42 He is on room air with good oxygen saturations but still feels short of breath appears to have conversational dyspnea at this time; was scheduled for another thoracentesis but his INR is too high. Exam Narrative: General: elderly male in NAD Heart: normal S1 and S2; no rub Lungs: decreased throughout but more so at bases Abdomen: soft, nontender, nondistended, positive bowel sounds Extremities: no cyanosis or clubbing; no edema Skin: warm and dry Objective Data Vital Signs Vital Signs: Vital Signs Temp Pulse Resp BP Pulse Ox O2 Del Method 06/15/22 12:00 101 H 06/15/22 08:00 103 H 06/15/22 08:00 98 Room Air 06/15/22 09:57 104 H 06/15/22 04:00 106 H 06/15/22 00:00 110 H 06/14/22 20:00 112 H 06/15/22 05:38 97.2 F L 104 H 16 98 06/14/22 21:42 88 06/14/22 21:17 97.6 F 112 H 20 108/51 L 98 06/14/22 21:21 88 18 06/14/22 21:13 84 16 06/14/22 16:00 111 H 06/14/22 14:00 97.8 F 111 H 18 129/66 99 06/14/22 13:11 80 14 Intake/Output Intake/Output: Intake & Output 06/12/22 06/13/22 06/14/22 06/15/22 23:59 23:59 23:59 23:59 Intake Total 1260 730 700 200 Output Total 850 400 300 Balance 410 330 400 200 Meds/Results Medications: Active Medications Generic Name Dose Route Start Last Admin Trade Name Christianoq PRN Reason Stop Dose Admin Acetaminophen 650 mg 06/12/22 09:00 06/15/22 09:57 Acetaminophen 325 Mg Tablet PO 650 mg BID CALVIN Administration Acetaminophen 650 mg 06/13/22 05:51 06/13/22 06:15 Acetaminophen 325 Mg Tablet PO 650 mg Q4H PRN Administration Mild Pain (1-3) or Fever Aspirin 81 mg 06/12/22 09:00 06/15/22 09:57 Aspirin 81 Mg Chewable Tablet PO 07/12/22 08:59 81 mg DAILY CALVIN Administration Cyanocobalamin 1,000 mcg 06/12/22 09:00 06/15/22 09:57 Cyanocobalamin 1,000 Mcg Tablet PO 07/12/22 08:59 1,000 mcg DAILY CALVIN Administration Ferrous Sulfate 324 mg 06/12/22 09:00 06/15/22 09:58 Ferrous Sulfate 324 Mg Tablet PO Not Given BID CALVIN Furosemide 20 mg 06/12/22 09:00 06/15/22 10:48 Furosemide 20 Mg Tablet PO Not Given DAILY CALVIN Home Med 0 each 06/12/22 21:50
[2022-06-15] MEDS: IPRATROPIUM BR 0.02% INH SOLN 0.5 MG/2.5 ML VIAL INHALATION (13:38)
--- NOTE | 2022-06-15 13:56 | PCOTNOTE ---
Attempted to see patient this pm, however patient declined at this time requesting OT to come back tomorrow. Pt reported feeling too tired at this time.
--- NOTE | 2022-06-15 15:50 | P.DS_ITS ---
DS: Admitting Diagnosis Discharge Date 06/15/22 Admitting Diagnosis right pleural effusion, lung mass DS: Discharge Diagnosis Discharge Diagnosis (1) Shortness of breath: Code(s): R06.02 - Shortness of breath Status: Acute Assessment and Plan: The patient presented to the emergency department for evaluation of progressive dyspnea on exertion and weakness the last several days. He was tachypneic and tachycardic on arrival to the ED with stable oxygen saturations. * CXR revealed large R pleural effusion - Thoracentesis yeilded 1000mL of fluid * Hx of multiple malignancies * r/o PE - V/Q ordered due to pt creatinine of 20 * echo ordered * BNP ordered * Patient put on ceftriaxone and doxy for possible infectious pleural effusion * Cancer antigens pending * Patient not appear fluid overloaded on presentation patient was given 1 dose IV Lasix on 06/11/2022 * Continue patient's home Lasix to possibly help with pleural effusion * Will monitor kidney function while on Lasix. May have to DC if creatinine continues to rise. * Lactic acid 2.4 on arrival, repeat 1.8 * Echo results: EF 20-25% LVH, systolic function severly reduced, diastolic dysfunction, pacemaker present, severe pulmonary hypertension with systolic pressure of 109, severe aortic valve sclerosis, mild aortic valve regurg, moderate aortic valve stenosis * consult cardiology * Had a discussion with family about hospice. Family is open to hospice meeting. Care coordination consulted. * 06/15/22 patient put on comfort measures and discussed with both care coordination, myself and the family. * Patient is aware of what is happening and has decided to consent to comfort measures * family planning on signing with hospice later In the evening (2) Pleural effusion on right: Code(s): J90 - Pleural effusion, not elsewhere classified Status: Acute Assessment and Plan: Status post thoracentesis * thoracentesis yeilded 1000mL of fluid * Pleural Fluid analysis revealed elevated RBCs normal pH and PMNs * pulmonology consulted * broad spectrum antibiotics given - ceftriaxone and doxy * echo ordered * 06/13/22 Lasix held due to patient's increasing creatinine * 06/14/2022 Lasix restarted due to crackles in right lung. Continue antibiotic therapy until hospice is signed. (3) MANJIT (acute kidney injury): Code(s): N17.9 - Acute kidney failure, unspecified Status: Acute Assessment and Plan: On arrival patient's creatinine found to be elevated at 3 * From recent hospital stays patient's creatinine seems to be between the low 2s to mid 2s * Patient's fluids discontinued due to risk of fluid overload * Consult nephrology (4) Reduced ejection fraction concurrent with and due to acute heart failure: Code(s): I50.21 - Acute systolic (congestive) heart failure Status: Acute Assessment and Plan: Patient did not have heart failure diagnosis before admission into the hospital. Had shortness of breath on admission with large right pleural effusion. * Echo ordered due to SBO and pleural effusion * Echo results: EF 20-25% LVH, systolic function severly reduced, diastolic dysfunction, pacemaker present, severe pulmonary hypertension with systolic pressure of 109, severe aortic valve sclerosis, mild aortic valve regurg, moderate aortic valve stenosis. * Patient has had sustained tachycardia around 110 * Have discussed with family that pleural effusion could be from lung cancer or heart failure * Cardiology consulted and following patient. * Patient's Lasix held on 06/13/2022 due to increasing creatinine. * P
--- NOTE | 2022-06-15 15:50 | PM.DS ---
DS: Admitting Diagnosis Discharge Date 06/15/22 Admitting Diagnosis right pleural effusion, lung mass DS: Discharge Diagnosis Discharge Diagnosis (1) Shortness of breath: Code(s): R06.02 - Shortness of breath Status: Acute Assessment and Plan: The patient presented to the emergency department for evaluation of progressive dyspnea on exertion and weakness the last several days. He was tachypneic and tachycardic on arrival to the ED with stable oxygen saturations. CXR revealed large R pleural effusion - Thoracentesis yeilded 1000mL of fluid Hx of multiple malignancies r/o PE - V/Q ordered due to pt creatinine of 20 echo ordered BNP ordered Patient put on ceftriaxone and doxy for possible infectious pleural effusion Cancer antigens pending Patient not appear fluid overloaded on presentation patient was given 1 dose IV Lasix on 06/11/2022 Continue patient's home Lasix to possibly help with pleural effusion Will monitor kidney function while on Lasix. May have to DC if creatinine continues to rise. Lactic acid 2.4 on arrival, repeat 1.8 Echo results: EF 20-25% LVH, systolic function severly reduced, diastolic dysfunction, pacemaker present, severe pulmonary hypertension with systolic pressure of 109, severe aortic valve sclerosis, mild aortic valve regurg, moderate aortic valve stenosis consult cardiology Had a discussion with family about hospice. Family is open to hospice meeting. Care coordination consulted. 06/15/22 patient put on comfort measures and discussed with both care coordination, myself and the family. Patient is aware of what is happening and has decided to consent to comfort measures family planning on signing with hospice later In the evening (2) Pleural effusion on right: Code(s): J90 - Pleural effusion, not elsewhere classified Status: Acute Assessment and Plan: Status post thoracentesis thoracentesis yeilded 1000mL of fluid Pleural Fluid analysis revealed elevated RBCs normal pH and PMNs pulmonology consulted broad spectrum antibiotics given - ceftriaxone and doxy echo ordered 06/13/22 Lasix held due to patient's increasing creatinine 06/14/2022 Lasix restarted due to crackles in right lung. Continue antibiotic therapy until hospice is signed. (3) MANJIT (acute kidney injury): Code(s): N17.9 - Acute kidney failure, unspecified Status: Acute Assessment and Plan: On arrival patient's creatinine found to be elevated at 3 From recent hospital stays patient's creatinine seems to be between the low 2s to mid 2s Patient's fluids discontinued due to risk of fluid overload Consult nephrology (4) Reduced ejection fraction concurrent with and due to acute heart failure: Code(s): I50.21 - Acute systolic (congestive) heart failure Status: Acute Assessment and Plan: Patient did not have heart failure diagnosis before admission into the hospital. Had shortness of breath on admission with large right pleural effusion. Echo ordered due to SBO and pleural effusion Echo results: EF 20-25% LVH, systolic function severly reduced, diastolic dysfunction, pacemaker present, severe pulmonary hypertension with systolic pressure of 109, severe aortic valve sclerosis, mild aortic valve regurg, moderate aortic valve stenosis. Patient has had sustained tachycardia around 110 Have discussed with family that pleural effusion could be from lung cancer or heart failure Cardiology consulted and following patient. Patient's Lasix held on 06/13/2022 due to increasing creatinine. Patient's Lasix restarted 06/14/2022 due to crackles heard in the right lung. (5) Elevated troponin: Code(s): R77.8 - Other specified abnormalities of plasma proteins Status: Acute Assessment and Plan: troponin mildly elevated but remain flat - continue to monitor (6) Macrocytic anemia: Code(s): D53.9 - Nutritional anemia, unspecif
[2022-06-15] MEDS: MORPHINE SULFATE (*CRX) 2 MG/ML INJ IV PUSH (15:58)
[2022-06-15] MEDS: ONDANSETRON INJ 4 MG/2 ML VIAL IV PUSH (16:23)
[2022-06-15] MEDS: PHYTONADIONE 5 MG TABLET PO (17:07)
[2022-06-15 20:09] LABS: Glucose Pleural Fluid 85 mg/dL; Total Protein Pleural Fluid 3.5 g/dL
[2022-06-22 10:15] LABS: Adenosine Deaminase Pleural Fl 4.9
== END 2022-06-15 20:09 | disposition hospice, inpatient (51) | DRG 186 ==
LOC: ANHED 07:21 → ANHIMU 15:07 → ANH3MEDSUR 22:02
PROVIDERS: Emergency Medicine; Physician Assistant; Admitting Provider Family Medicine; Emergency Provider Emergency Medicine; PCP Internal Medicine; Visit Provider Internal Medicine Critical Care Medicine
DX: J90 Pleural effusion, not elsewhere classified (principal); I50.23 Acute on chronic systolic (congestive) heart failure; J18.9 Pneumonia, unspecified organism; N18.4 Chronic kidney disease, stage 4 (severe); I13.0 Hypertensive heart and chronic kidney disease with heart failure and stage 1 through stage 4 chronic kidney disease, or unspecified chronic kidney disease; N17.9 Acute kidney failure, unspecified; I69.351 Hemiplegia and hemiparesis following cerebral infarction affecting right dominant side; I48.19 Other persistent atrial fibrillation; J44.0 Chronic obstructive pulmonary disease with (acute) lower respiratory infection; C34.11 Malignant neoplasm of upper lobe, right bronchus or lung; C79.89 Secondary malignant neoplasm of other specified sites; C44.42 Squamous cell carcinoma of skin of scalp and neck; I25.5 Ischemic cardiomyopathy; D53.9 Nutritional anemia, unspecified; E55.9 Vitamin D deficiency, unspecified; E78.5 Hyperlipidemia, unspecified; R77.8 Other specified abnormalities of plasma proteins; D63.1 Anemia in chronic kidney disease; I25.10 Atherosclerotic heart disease of native coronary artery without angina pectoris; Z66 Do not resuscitate; F17.210 Nicotine dependence, cigarettes, uncomplicated; Z20.822 Contact with and (suspected) exposure to COVID-19; Z79.01 Long term (current) use of anticoagulants; Z95.5 Presence of coronary angioplasty implant and graft; Z98.42 Cataract extraction status, left eye; Z98.41 Cataract extraction status, right eye; Z96.1 Presence of intraocular lens; Z90.49 Acquired absence of other specified parts of digestive tract; Z95.810 Presence of automatic (implantable) cardiac defibrillator
CPT/HCPCS: 32555; 36415; 36600; 71045; 71046; 71250; 76775; 78580; 80048; 80053; 82042; 82550; 82805; 82945; 83605; 83615; 83735; 83880; 83986; 84157; 84311; 84443; 84478; 84484; 85025; 85027; 85610; 85730; 86140; 87040; 87637; 88108; 88305; 89051; 93005; 93306; 93970; 94640; 97161; 97165; 99285; A9270; A9540; J0131; J0696; J1940; J2270; J2405; J7030; J7040

== ENCOUNTER 2022-06-15 20:11 | HOS | payer OTHER, MEDICARE, SELFPAY ==
[2022-06-15 20:15] VITALS: BP 93/43; PULSE 83; RESP 18; TEMP 36.3; O2SAT 95
--- OUTSIDE RECORDS SUMMARY | 2022-06-15 20:15 | XMS_ITS | Continuity of Care Document ---
Author Name Unknown Organization Unknown Medications Start Date End Date Medication Signa 20210513 Acetaminophen 325 mg oral ta blet Take 2 tab(s) oral every 4 hours as needed for for 20210513 Aspirin 81 mg oral tablet, c hewable Chew 1 tab(s) oral daily 20210513 Coreg 6.25 mg oral tablet Ta ke 1 tab(s) oral Daily 20210513 cyanocobalamin 500 mcg oral tablet Take 1 tab(s) orally once a day 20210513 Ferrous Sulfate 324 mg oral delayed release tablet Take 1 tab(s) oral Twice daily with meals 20210513 Furosemide 40 mg oral tablet Take 1 tab(s) oral Daily 20210513 Hylands leg cram ps caplet 1 mg capsule Take 1 cap(s) orally 1 to 2 times a day as needed for Cramping 20210513 Hylands leg cramps PM 1 mg c apsule Take 3 cap(s) orally Nightly as needed for Sleep; Sleep 20210513 Magnesium Oxide 250 mg oral tablet Take 1 tab(s) oral Daily 20210513 MethylPREDNISolo ne Dose Pack 4 mg oral tablet Take 1 tab(s) oral Before breakfast 20210513 Minerin - topical cream Appl y 1 application topical Daily 20210513 Pepcid 20 mg oral tablet Emeka e 1 tab(s) orally 2 times a day 20210513 Simvastatin 40 mg oral table t Take 1 tab(s) oral Daily 20210513 Sodium Bicarbona te 650 mg oral tablet Take 1 tab(s) oral 2 times a day 20210513 Vitamin D3 25 mcg oral capsu le Take 1 cap(s) orally once a day 20210513 warfarin 4 mg oral tablet Ta ke 1 tab(s) orally once a day Wednesday, Wednesday, and 20210513 Warfarin Sodium 5 mg oral ta blet Take 1 tab(s) oral 1x a day on Wednesday, Wednesday and Wednesday Problems Type Code Description Effective Start Effective End Onset/Exacerbation Date Primary I13.0 Hyp hrt & chr kd ny dis w hrt fail and stg
[2022-06-15] MEDS: HYDROmorphone HCL/PF (*CRX) 50 MG in SODIUM CHLORIDE 0.9% IV 95 ML IV CONT (21:39)
--- NOTE | 2022-06-16 21:37 | PM.IMHP ---
H&P: HPI History of Present Illness Date/Time: 06/16/22 21:37 Chief Complaint: uncontrolledd pain Narrative: Mr. Jensen was admitted to inpatient hospice service due to uncontrolled pain and restlessness caused by his metastatic oral cancer and inability to eat or drink. Review of Systems Review of Systems: ROS unobtainable: Yes unobtainable due to medical condition PMFSH Past Medical History Medical History Anemia in chronic kidney disease Atrial fibrillation Cerebral arteriosclerosis with history of previous stroke (~2008) Residual l right-sided weakness. 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 Tobacco dependence Vitamin D deficiency Warfarin anticoagulation Surgical History Surgical History History of appendectomy History of cataract extraction with lens replacement History of coronary artery stent placement With 3 stents placed in 2001 and 2002 History of implantable cardioverter-defibrillator (ICD) placement (~2005) Family History Family History Mother Breast cancer Daughter Breast cancer Father Alcoholism Sibling Cancer Social History Social History Social History: Lives in independent living at [facility]. 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 He continues to smoke half a pack of cigarettes per day he started smoking at the age of 16. Primary care physician: Dr. Oneal Carrasco [facility] power of general store manager: Gonzalo Trammell, son. Code status: Do not resuscitate. Smoking packs per day: 0.5 Smoking cigarettes per day: 10.0 Years smoked: 64 Smoking pack-years: 32.00 Smoking status: Former smoker Second hand tobacco smoke exposure: Yes Alcohol intake: current Drinks per week: 6 Substance use: never Substance use type: does not use Lack of Transportation: No Lack of Food: Never True Current Housing: Decline to Answer Concerned About Future Housing: Decline to Answer Difficulty Paying Gas/Electric Bills: Decline to Answer Difficulty Paying for Meds: Decline to Answer Currently Unemployed: Decline to Answer Education: Decline to Answer Difficulty w/ Childcare or Family Care: No Spiritual care concerns: No Meds Home Medications and Allergies Home Medications Medication Instructions Recorded Confirmed Type aspirin 81 mg tablet 81 mg PO DAILY 06/08/20 06/12/22 History simvastatin 40 mg tablet 40 mg PO HS 06/08/20 06/12/22 History cholecalciferol (vitamin D3) 25 1,000 unit PO DAILY 03/31/21 06/12/22 History mcg (1,000 unit) capsule (Vitamin D3) magnesium 250 mg tablet 250 mg PO DAILY 03/31/21 06/12/22 History mecobalamin (vitamin B12) 1,000 1,000 mcg PO DAILY 03/31/21 06/12/22 History mcg chewable tablet (B12 Active) ferrous sulfate 324 mg (65 mg 324 mg PO BID 02/13/22 06/12/22 History iron) tablet,delayed release warfarin 3 mg tablet 4 mg PO HS 02/13/22 06/12/22 History mupirocin 2 % topical ointment 1 applic EACH NARE TID 30 days #22 02/14/22 06/12/22 Rx grams furosemide 20 mg tablet (Lasix) 20 mg PO DAILY #14 tabs 02/17/22 06/12/22 Rx metoprolol tartrate 25 mg tablet 25 mg PO Q12HR 30 days #60 tabs 02/17/22 06/12/22 Rx acetaminophen 325 mg tablet (Mapap 650 mg PO BID 06/11/22 06/12/22 History (acetaminophen)) oxycodone 5 mg tablet 5 mg PO Q4H PRN Pain 06/11/22 06/12/22 History vitamin B complex 1 cap PO DAILY 06/11/22 06/12/22 History Allergies Allergy/AdvReac Type Severity Reaction Status Date / Time No Known Allergies Allergy Verified 03/07
--- NOTE | 2022-06-16 21:42 | P.DN_ITS ---
Discharge Summary Date and Time Date of : 06/16/22 Time of : 07:22 Provider Pronounced By: Kerri Brice RN Probable Cause of Probable Cause of : squam Summary Hospital Course: Admitted to inpatient hospice service due to uncontrolled pain. Medications titrated to comfort. Mr. Jensen peacefully. Additional Data Confirmation of as documented by pronouncing clinician: Pupillary Reflex, Palpable Pulses, Response to Stimuli, Heart Tones and Breath Sounds Name of Provider Notified: Dr. Beverly Time Provider Notified: 07:37 Provider Requests Autopsy: No [employer]' Notified: Yes Date [facility] Notified of : 06/16/22 Time [facility] Notified of : 07:42
== END 2022-06-16 07:22 | disposition expired | DRG 951 ==
PROVIDERS: Admitting Provider Internal Medicine; PCP Internal Medicine; Visit Provider Internal Medicine
DX: Z51.5 Encounter for palliative care (principal); C79.9 Secondary malignant neoplasm of unspecified site; C34.90 Malignant neoplasm of unspecified part of unspecified bronchus or lung; I48.20 Chronic atrial fibrillation, unspecified; N17.9 Acute kidney failure, unspecified; C06.9 Malignant neoplasm of mouth, unspecified; G89.3 Neoplasm related pain (acute) (chronic); N18.9 Chronic kidney disease, unspecified; F17.200 Nicotine dependence, unspecified, uncomplicated
CPT/HCPCS: A9270; J1170